=== PATIENT | male | born 1985 | race Hispanic/Latino ===

== ENCOUNTER 2018-11-10 14:50 | Inpatient (IN) | payer OTHER ==
--- NOTE | 2018-11-10 15:00 | Emergency Department Report ---
Blank Doc - Documentation Documentation: This is a 33-year-old male that presents with umbilical hernia pain. Exam: reducible umbilical hernia This initial assessment/diagnostic orders/clinical plan/treatment(s) is/are subject to change based on patient's health status, clinical progression and re- assessment by fellow clinical providers in the ED. Further treatment and workup at subsequent clinical providers discretion. Patient/guardians urged not to elope from the ED as their condition may be serious if not clinically assessed and managed. Initial orders include: 1- Patient sent to [facility] for further evaluation and treatment 2- labs
[2018-11-10 15:18] LABS: Hematocrit 44.3 % (35.5-45.6); Hemoglobin 14.7 gm/dl (11.8-15.2); Mean Corpuscular HGB Conc 33 % (32-34); Mean Corpuscular Volume 87 fl (84-94); Platelet Count 339 K/mm3 (140-440); Red Cell Distribution Width 14.5 % (13.2-15.2)
[2018-11-10 15:31] LABS: Alanine Aminotransferase 14 units/L (7-56); Albumin 3.5 g/dL (3.9-5); BUN/Creatinine Ratio 16; Bilirubin,Direct 0.4 mg/dL (0-0.2); Blood Urea Nitrogen 13 mg/dL (9-20); Calcium 9.4 mg/dL (8.4-10.2); Hemolysis Index 26
[2018-11-10 16:12] LABS: Basophils % (Manual) 0 % (0.0-1.8); Eosinophils % (Manual) 0 % (0.0-4.3); RBC Morphology Normal; Total Cells Counted 100
[2018-11-10] MEDS ORDERED: ZOFRAN IV ONE (17:50)
[2018-11-10] MEDS ORDERED: TORADOL IV ONE (17:50)
[2018-11-10] MEDS ORDERED: NACL 0.9% 1000 ML 1,000 ML IV ONE (17:50)
[2018-11-10 18:06] LABS: Bacteria,Urine 1+ /HPF (Negative); Bilirubin,Urine SM (Negative); Blood,Urine SM (Negative); Color,Urine Amber (Yellow); Mucus,Urine 3+ /HPF
[2018-11-10 18:12] LABS: Ictotest,Urine Positive (Negative)
--- NOTE | 2018-11-10 19:00 | Cat Scan Report ---
PROCEDURE: CT abdomen and pelvis with contrast. TECHNIQUE: Computerized axial tomography of the abdomen and pelvis was performed after the IV inject ion of iodinated nonionic contrast. CT DOSE LENGTH PRODUCT: 3456.8 mGycm HISTORY: abd pain, hx of umbilical hernia COMPARISONS: None. FINDINGS: The lung bases are clear. There are no pleural effusions. The heart size is normal. The liver, pancre as and spleen appear normal. The gallbladder is present. There is no biliary dilatation. The adrenal glands are not enlarged. Both kidneys appear normal in size and configuration. There is a small corti jaspreet cyst in the right kidney. The abdominal aorta has a normal caliber. There is no retroperitoneal a denopathy. There is an abnormal focal collection of gas with a small amount of fluid in the lower mes enteric fat. This measures approximately 4.7 cm x 4.5 cm in cross-section. It is surrounded by a loop of small bowel on the superior aspect. The inferior aspect is adjacent to the distal sigmoid colon. There is some infiltration of the surrounding fat. This represents a contained perforation with absce ss. There is no free pneumoperitoneum. The etiology is uncertain. There are a few diverticula in the sigmoid colon and a perforated diverticulum is probably the most likely etiology. Due to the surround ing bowel this abscess is not drainable percutaneously. Referral to a general surgeon is recommended. A normal appendix is visible. The bladder and seminal vesicles are unremarkable. The prostate appear s normal. There is a small amount of free fluid in the lower pelvis. There is a moderately large umbi lical hernia containing fat. The regional skeleton appears intact. IMPRESSION: Contained abscess within the mesenteric fat as described. A perforated sigmoid diverticu lum may be the most likely etiology. Small amount of free fluid in the lower pelvis which could be in fected. Referral to a general surgeon recommended. Moderately large umbilical hernia containing fat. This document is electronically signed by Stephon Ivory MD., November 10 2018 06:58:08 PM ET
--- NOTE | 2018-11-10 19:42 | Emergency Department Report ---
<AGUSTIN MATHEWS - Last Filed: 11/10/18 20:38> ED Abdominal Pain HPI - General Chief Complaint: Abdominal Pain Stated Complaint: BELLY PAIN/EXTREME Time Seen by Provider: 11/10/18 14:58 - Related Data Previous Rx's Medication Instructions Recorded Last Taken Type Acetaminophen/Codeine 1 tab PO Q6H PRN #12 tab 09/18/14 Unknown Rx [Acetaminophen-Codeine #3 TAB] Cyclobenzaprine [Flexeril 10mg] 10 mg PO Q8H PRN #15 tablet 09/18/14 Unknown Rx Ibuprofen [Motrin 800 MG tab] 800 mg PO Q8H PRN #30 tablet 09/18/14 Unknown Rx Allergies Allergy/AdvReac Type Severity Reaction Status Date / Time hydrocodone Allergy Unknown Verified 11/10/18 14:51 ED Past Medical Hx - Medications Home Medications: Home Medications Medication Instructions Recorded Confirmed Last Taken Type Acetaminophen/Codeine 1 tab PO Q6H PRN #12 tab 09/18/14 Unknown Rx [Acetaminophen-Codeine #3 TAB] Cyclobenzaprine [Flexeril 10mg] 10 mg PO Q8H PRN #15 tablet 09/18/14 Unknown Rx Ibuprofen [Motrin 800 MG tab] 800 mg PO Q8H PRN #30 tablet 09/18/14 Unknown Rx ED Medical Decision Making - Lab Data Result diagrams: 11/10/18 15:04 11/10/18 15:04 - Medical Decision Making Mr. Jose has complicated sigmoid diverticulitis, microperforation, intra- abdominal abscess. I evaluated Mr. Jose. He appears well, nontoxic. No evidence of peritonitis on exam. No indication of sepsis without SIRS. Normal abdominal exam. I spoke with general surgeon donor services team leader Dr. Hinojosa. I requested admission to the hospitalist service which my colleague will arrange. I recommended Zosyn as the antibiotic of choice. ED Disposition Clinical Impression: Abscess of sigmoid colon due to diverticulitis, Perforation of sigmoid colon due to diverticulitis Disposition: OP ADMIT IP TO THIS HOSP Is pt being admited?: Yes Does the pt Need Aspirin: No Condition: Stable Referrals: ILIA COLBY MD [Primary Care Provider] - 3-5 Days <NICKY PEREZ - Last Filed: 11/10/18 21:39> ED Abdominal Pain HPI - General Source: patient Mode of arrival: Ambulatory Limitations: No Limitations - History of Present Illness Initial Comments: Pt is a 33 yo male who presents to the ED with c/o periumbilical abdominal pain that began 5 days ago. The patient has associated nausea and constipation. He states he has had small amounts of liquid stool but no complete BM in 5 days. He denies any emesis, fever, or dysuria. He states he was seen at another hospital this morning and had an abdominal XR and he states that they saw "loops of gas" and he was given abx but did not have a CT performed. The patient has a hx of an umbilical hernia and states the pain is around there. He denies any PMHx or daily medications. He has had no abdominal surgeries. Severity scale (0 -10): 7 ED Review of Systems ROS: Stated complaint: BELLY PAIN/EXTREME Other details as noted in HPI Comment: All other systems reviewed and negative ED Past Medical Hx - Past Medical History Hx Hypertension: Yes Additional medical history: umbilical hernia, DIVERTICULITIS - Surgical History Additional Surgical History: fX LLL - Social History Smoking Status: Current Every Day Smoker Substance Use Type: None ED Physical Exam - General Limitations: No Limitations General appearance: alert, in no apparent distress - Head Head exam: Present: atraumatic, normocephalic - Eye Eye exam: Present: normal appearance - ENT ENT exam: Present: mucous membranes moist - Respiratory Respiratory exam: Present: normal lung sounds bilaterally. Absent: respiratory distress, wheezes, rales, rhonchi, stridor, chest wall tenderness, accessory muscle use, decreased breath sounds, prolonged expiratory - Cardiovascular Cardiovascular Exam: Present: regular rate, normal rhythm, normal heart sounds. Absent: systolic murmur, diastolic murmur, rubs, gallop - GI/Abdominal GI/Abdominal exam: Present: soft, tenderness (periumbilcal TTP), hypoactive bowel sounds, hernia ( umbilical hernia easily reducible ). Absent: distended, guarding, rebound, rigid - Back Exam Back exam: Absent: CVA tenderness (R), CVA tenderness (L) - Neurological Exam Neurological exam: Present: alert, oriented X3 - Psychiatric Psychiatric exam: Present: normal affect, normal mood - Skin Skin exam: Present: warm, dry, intact ED Course Vital Signs 11/10/18 14:58 Temperature 98.3 F Pulse Rate 108 H Respiratory 20 Rate Blood Pressure 134/76 O2 Sat by Pulse 96 Oximetry - Consultations Consultation #1: 11/10/18 19:42 asked service secretary to call general surgery Consultation #2: 11/10/18 20:30 Dr. Mathews spoke with Dr. Hinojosa, general surgery who will evaluate pt and see pt in the hospital Consultation #3: 11/10/18 21:22 Dr. Mathews spoke with Dr. Molina, hospitalist who will accept and resume care of the patient and admit patient to the hospital ED Medical Decision Making - Lab Data Result diagrams: 11/10/18 15:04 11/10/18 15:04 Lab Results 11/10/18 11/10/18 11/10/18 Range/Units 15:04 15:04 17:46 WBC 22.5 H (4.5-11.0) K/mm3 RBC 5.10 H (3.65-5.03) M/mm3 Hgb 14.7 (11.8-15.2) gm/dl Hct 44.3 (35.5-45.6) % MCV 87 (84-94) fl MCH 29 (28-32) pg MCHC 33 (32-34) % RDW 14.5 (13.2-15.2) % Plt Count 339 (140-440) K/mm3 Add Manual Diff Complete Total Counted 100 Seg Neuts % (Manual) 83.0 H (40.0-70.0) % Band Neutrophils % 0 % Lymphocytes % (Manual) 9.0 L (13.4-35.0) % Reactive Lymphs % (Man) 0 % Monocytes % (Manual) 8.0 H (0.0-7.3) % Eosinophils % (Manual) 0 (0.0-4.3) % Basophils % (Manual) 0 (0.0-1.8) % Metamyelocytes % 0 % Myelocytes % 0 % Promyelocytes % 0 % Blast Cells % 0 % Nucleated RBC % Not Reportable Seg Neutrophils # Man 18.7 H (1.8-7.7) K/mm3 Band Neutrophils # 0.0 K/mm3 Lymphocytes # (Manual) 2.0 (1.2-5.4) K/mm3 Abs React Lymphs (Man) 0.0 K/mm3 Monocytes # (Manual) 1.8 H (0.0-0.8) K/mm3 Eosinophils # (Manual) 0.0 (0.0-0.4) K/mm3 Basophils # (Manual) 0.0 (0.0-0.1) K/mm3 Metamyelocytes # 0.0 K/mm3 Myelocytes # 0.0 K/mm3 Promyelocytes # 0.0 K/mm3 Blast Cells # 0.0 K/mm3 WBC Morphology Not Reportable Hypersegmented Neuts Not Reportable Hyposegmented Neuts Not Reportable Hypogranular Neuts Not Reportable Smudge Cells Not Reportable Toxic Granulation Not Reportable Toxic Vacuolation Not Reportable Dohle Bodies Not Reportable Pelger-Huet Anomaly Not Reportable Manuel Rods Not Reportable Platelet Estimate Not Reportable Clumped Platelets Not Reportable Plt Clumps, EDTA Not Reportable Large Platelets Not Reportable Giant Platelets Not Reportable Platelet Satelliting Not Reportable Plt Morphology Comment Not Reportable RBC Morphology Normal Dimorphic RBCs Not Reportable Polychromasia Not Reportable Hypochromasia Not Reportable Poikilocytosis Not Reportable Anisocytosis Not Reportable Microcytosis Not Reportable Macrocytosis Not Reportable Spherocytes Not Reportable Pappenheimer Bodies Not Reportable Sickle Cells Not Reportable Target Cells Not Reportable Tear Drop Cells Not Reportable Ovalocytes Not Reportable Helmet Cells Not Reportable [place] Bodies Not Reportable [place] Rings Not Reportable [place] Cells Not Reportable Bite Cells Not Reportable Crenated Cell Not Reportable Elliptocytes Not Reportable Acanthocytes (Spur) Not Reportable Rouleaux Not Reportable Hemoglobin C Crystals Not Reportable Schistocytes Not Reportable Malaria parasites Not Reportable Hood Bodies Not Reportable Hem Pathologist Commnt No Sodium 140 (137-145) mmol/L Potassium 4.2 (3.6-5.0) mmol/L Chloride 104.9 (98-107) mmol/L Carbon Dioxide 18 L (22-30) mmol/L Anion Gap 21 mmol/L BUN 13 (9-20) mg/dL Creatinine 0.8 (0.8-1.5) mg/dL Estimated GFR > 60 ml/min BUN/Creatinine Ratio 16 % Glucose 93 (75-100) mg/dL Calcium 9.4 (8.4-10.2) mg/dL Total Bilirubin 0.90 (0.1-1.2) mg/dL Direct Bilirubin 0.4 H (0-0.2) mg/dL Indirect Bilirubin 0.5 mg/dL AST 16 (5-40) units/L ALT 14 (7-56) units/L Alkaline Phosphatase 78 (35-129) units/L Total Protein 7.5 (6.3-8.2) g/dL Albumin 3.5 L (3.9-5) g/dL Albumin/Globulin Ratio 0.9 % Lipase 47 (13-60) units/L Urine Color [place] (Yellow) Urine Turbidity Clear (Clear) Urine pH 6.0 (5.0-7.0) Ur Specific [place] 1.043 H (1.003-1.030) Urine Protein 100 mg/dl (Negative) mg/dL Urine Glucose (UA) Neg (Negative) mg/dL Urine Ketones 20 (Negative) mg/dL Urine Blood Sm (Negative) Urine Nitrite Neg (Negative) Urine Bilirubin Sm (Negative) Urine Ictotest Positive (Negative) Urine Urobilinogen 4.0 (<2.0) mg/dL Ur Leukocyte Esterase Neg (Negative) Urine WBC (Auto) 8.0 H (0.0-6.0) /HPF Urine RBC (Auto) 12.0 (0.0-6.0) /HPF U Epithel Cells (Auto) 3.0 (0-13.0) /HPF Urine Bacteria (Auto) 1+ (Negative) /HPF Urine Mucus 3+ /HPF Urine Yeast (Budding) 2+ /HPF - Radiology Data Radiology results: report reviewed CT abd/pelvis with contained abscess within the mesenteric fat, perforated diverticulum may be most likely, small amount of free fluid in lower pelvis, moderately large umbilical hernia containing fat - Differential Diagnosis hernia, diverticulitis, diverticulosis, SBO, constipation Critical care attestation.: If time is entered above; I have spent that time in minutes in the direct care of this critically ill patient, excluding procedure time.
[2018-11-10] MEDS ORDERED: ZOSYN/NS 4.5GM/100ML 4.5 GM/100 ML VIAL IV ONE (20:37)
[2018-11-10] MEDS ORDERED: HABITROL TD ONE (22:00)
[2018-11-10] MEDS ORDERED: TYLENOL PO PRN (22:43)
--- NOTE | 2018-11-10 22:47 | History and Physical Report ---
History of Present Illness Date of examination: 11/10/18 Date of admission: 11/10/18 21:50 History of present illness: 33-year-old man history of diverticulosis comes emergency room with complaints of abdominal pain that started 5 days ago. Pain is in the lower quadrant which he describes as a sharp pain, intermittent in 4 hours, intensity 8/10, no radiation, better with pain medications given. He did place a subjective fever chills, no nausea vomiting. The patient was seen at [facility] today and was admitted, he left AMA because he stated he "flipped out" Review of systems Constitutional: no weight loss Ears, eyes, nose, mouth and throat: no nasal congestion, no nasal discharge, no sinus pressure, no vision change, no red eye. Neck: No neck pain or rigidity. Cardiovascular: no palpitations, chest pain Respiratory: no cough, shortness of breath Gastrointestinal: no hematochezia, +abdominal pain Genitourinary : no frequency , no hematuria Musculoskeletal: no joint swelling or muscle ache Integumentary: no rash, no pruritis Neurological: no parathesias, no focal weakness Endocrine: no cold or heat intolerance, no polyuria or polydipsia Hematologic/Lymphatic: no easy bruising, no easy bleeding, no gland swelling Allergic/Immunologic: no urticaria, no angioedema. SPAST MEDICAL HISTORY:diverticulosis PAST SURGICAL HISTORY: Left leg SOCIAL HISTORY: Denies alcohol, drugs, smoke 1-1/2 packs a day FAMILY HISTORY: Hypertension Medications and Allergies Allergies Allergy/AdvReac Type Severity Reaction Status Date / Time hydrocodone Allergy Unknown Verified 11/10/18 14:51 Home Medications Medication Instructions Recorded Confirmed Last Taken Type Acetaminophen/Codeine 1 tab PO Q6H PRN #12 tab 09/18/14 Unknown Rx [Acetaminophen-Codeine #3 TAB] Cyclobenzaprine [Flexeril 10mg] 10 mg PO Q8H PRN #15 tablet 09/18/14 Unknown Rx Ibuprofen [Motrin 800 MG tab] 800 mg PO Q8H PRN #30 tablet 09/18/14 Unknown Rx Active Meds: Active Medications Acetaminophen (Tylenol) 650 mg PO Q4H PRN PRN Reason: Pain MILD(1-3)/Fever >100.5/CORTES Sodium Chloride (Nacl 0.9% 1000 Ml) 1,000 mls @ 125 mls/hr IV DIRECT FLACA Piperacillin Sod/Tazobactam Sod (Zosyn/Ns 4.5gm/100ml) 4.5 gm in 100 mls @ 200 mls/hr IV Q6HR FLACA; Protocol Morphine Sulfate (Morphine) 2 mg IV Q4H PRN PRN Reason: Pain, Moderate (4-6) Ondansetron HCl (Zofran) 4 mg IV Q4H PRN PRN Reason: Nausea And Vomiting Sodium Chloride (Sodium Chloride Flush Syringe 10 Ml) 10 ml IV BID FLACA Sodium Chloride (Sodium Chloride Flush Syringe 10 Ml) 10 ml IV PRN PRN PRN Reason: LINE FLUSH Exam - Physical Exam Narrative exam: General Apperance: The patient lying in bed, breathing comfortable HEENT: Normocephalic, atraumatic. Pupils equally round and reactive to light, EOMI, no sclericterus or JVD or thyromegaly or nodule. , no carotid bruit, mucous membranes moist, no exudate or erythema Heart: S1-S2, regular is rhythm Lungs: Clear to auscultation bilaterally, breathing comfortable Abdomen: Positive bowel sounds, soft, tenderin lower quadrant, nondistended, no organomegaly Extremities: No edema cyanosis clubbing Skin: no rash, nodule, warm and dry Neuro: cranial nerves 2-12 intact, speech is fluent, motor/sensory intact - Constitutional Vitals: Temp Pulse Resp BP Pulse Ox 98.3 F 108 H 20 134/76 96 11/10/18 14:58 11/10/18 14:58 11/10/18 14:58 11/10/18 14:58 11/10/18 14:58 Results - Labs CBC & Chem 7: 11/10/18 15:04 11/10/18 15:04 Labs: Abnormal lab results 11/10/18 11/10/18 11/10/18 Range/Units 15:04 15:04 17:46 WBC 22.5 H (4.5-11.0) K/mm3 RBC 5.10 H (3.65-5.03) M/mm3 Seg Neuts % (Manual) 83.0 H (40.0-70.0) % Lymphocytes % (Manual) 9.0 L (13.4-35.0) % Monocytes % (Manual) 8.0 H (0.0-7.3) % Seg Neutrophils # Man 18.7 H (1.8-7.7) K/mm3 Monocytes # (Manual) 1.8 H (0.0-0.8) K/mm3 Carbon Dioxide 18 L (22-30) mmol/L Direct Bilirubin 0.4 H (0-0.2) mg/dL Albumin 3.5 L (3.9-5) g/dL Ur Specific [place] 1.043 H (1.003-1.030) Urine WBC (Auto) 8.0 H (0.0-6.0) /HPF - Imaging and Cardiology CT scan - abdomen: report reviewed CT scan - pelvis: report reviewed Assessment and Plan Assessment Diverticular abscess with microperforation Plan Admit to medicine Start fluids, bowel rest, IV Zosyn Serial abdominal exam, consult surgery IV morphine, DVT prophylaxis
[2018-11-11] MEDS: ZOSYN/NS 4.5GM/100ML 4.5 GM/100 ML VIAL IV SCH ×3 (01:32→14:20)
[2018-11-11] MEDS: NACL 0.9% 1000 ML 1,000 ML IV SCH ×3 (01:33→20:46)
[2018-11-11 07:48] LABS: Basophils # (Auto) 0.1 K/mm3 (0.0-0.1); Basophils % (Auto) 0.6 % (0.0-1.8); Eosinophils # (Auto) 0.5 K/mm3 (0.0-0.4); Eosinophils % (Auto) 3.8 % (0.0-4.3); Hematocrit 39.9 % (35.5-45.6); Hemoglobin 13.2 gm/dl (11.8-15.2); Lymphocytes # (Auto) 1.6 K/mm3 (1.2-5.4); Lymphocytes % (Auto) 11.5 % (13.4-35.0); Mean Corpuscular HGB Conc 33 % (32-34); Mean Corpuscular Volume 87 fl (84-94); Monocytes % (Auto) 6.8 % (0.0-7.3); Platelet Count 280 K/mm3 (140-440); Red Blood Count 4.61 M/mm3 (3.65-5.03); Red Cell Distribution Width 14.9 % (13.2-15.2)
[2018-11-11 08:12] LABS: BUN/Creatinine Ratio 19; Blood Urea Nitrogen 15 mg/dL (9-20); Calcium 8.9 mg/dL (8.4-10.2); Hemolysis Index 5
[2018-11-11] MEDS: ZOFRAN IV PRN ×3 (08:40→20:46)
[2018-11-11] MEDS: MORPHINE IV PRN ×3 (08:40→20:46)
[2018-11-11] MEDS: HABITROL TD SCH ×2 (08:53→10:00)
[2018-11-11] MEDS: SODIUM CHLORIDE FLUSH SYRINGE 10 ML IV SCH (10:00)
--- NOTE | 2018-11-11 10:44 | Progress Note ---
Assessment and Plan Full consult dictated 33 y/o male contained microperforation possible sigmoid diverticulitis. Pt was being Rx for this at [place] and signed out AMA. states "feeling much better now" Abd obese, soft. non tender at present. CT abd findings as mentioned above. rec: NPO IV antibiotics close clinical obsv continue present care will follow History of present illness: 33-year-old man history of diverticulosis comes emergency room with complaints of abdominal pain that started 5 days ago. Pain is in the lower quadrant which he describes as a sharp pain, intermittent in 4 hours, intensity 8/10, no radiation, better with pain medications given. He did place a subjective fever chills, no nausea vomiting. The patient was seen at [facility] today and was admitted, he left AMA because he stated he "flipped out" Review of systems Constitutional: no weight loss Ears, eyes, nose, mouth and throat: no nasal congestion, no nasal discharge, no sinus pressure, no vision change, no red eye. Neck: No neck pain or rigidity. Cardiovascular: no palpitations, chest pain Respiratory: no cough, shortness of breath Gastrointestinal: no hematochezia, +abdominal pain Genitourinary : no frequency , no hematuria Musculoskeletal: no joint swelling or muscle ache Integumentary: no rash, no pruritis Neurological: no parathesias, no focal weakness Endocrine: no cold or heat intolerance, no polyuria or polydipsia Hematologic/Lymphatic: no easy bruising, no easy bleeding, no gland swelling Allergic/Immunologic: no urticaria, no angioedema. SPAST MEDICAL HISTORY:diverticulosis PAST SURGICAL HISTORY: Left leg SOCIAL HISTORY: Denies alcohol, drugs, smoke 1-1/2 packs a day FAMILY HISTORY: Hypertension Selected Entries 11/11/18 11/11/18 03:31 07:20 Temperature 97.5 F L Pulse Rate 69 Respiratory 20 Rate Blood Pressure 101/39 [Left] Laboratory Tests 11/10/18 11/10/18 11/11/18 15:04 15:04 07:40 WBC 22.5 H 14.2 H Hgb 14.7 13.2 Hct 44.3 39.9 Plt Count 280 Sodium Potassium Chloride Carbon Dioxide BUN Creatinine Glucose Total Bilirubin 0.90 Direct Bilirubin 0.4 H Indirect Bilirubin 0.5 AST 16 ALT 14 Alkaline Phosphatase 78 Lipase 47 11/11/18 07:40 WBC Hgb Hct Plt Count Sodium 140 Potassium 3.8 Chloride 107.5 H Carbon Dioxide 21 L BUN 15 Creatinine 0.8 Glucose 74 L Total Bilirubin Direct Bilirubin Indirect Bilirubin AST ALT Alkaline Phosphatase Lipase Objective Vital Signs - 12hr 11/10/18 11/11/18 11/11/18 23:40 00:09 00:40 Temperature 97.5 F L 98.1 F Pulse Rate 63 69 Respiratory 16 16 18 Rate Blood Pressure 121/49 Blood Pressure 106/59 [Left] O2 Sat by Pulse 98 98 98 Oximetry 11/11/18 11/11/18 03:31 07:20 Temperature 97.5 F L 97.6 F Pulse Rate 69 69 Respiratory 17 20 Rate Blood Pressure 117/70 Blood Pressure 101/39 [Left] O2 Sat by Pulse 98 97 Oximetry - Labs 11/11/18 07:40 11/11/18 07:40 Diabetes panel 11/10/18 11/11/18 Range/Units 15:04 07:40 Sodium 140 140 (137-145) mmol/L Potassium 4.2 3.8 (3.6-5.0) mmol/L Chloride 104.9 107.5 H (98-107) mmol/L Carbon Dioxide 18 L 21 L (22-30) mmol/L BUN 13 15 (9-20) mg/dL Creatinine 0.8 0.8 (0.8-1.5) mg/dL Glucose 93 74 L (75-100) mg/dL Calcium 9.4 8.9 (8.4-10.2) mg/dL AST 16 (5-40) units/L ALT 14 (7-56) units/L Alkaline Phosphatase 78 (35-129) units/L Total Protein 7.5 (6.3-8.2) g/dL Albumin 3.5 L (3.9-5) g/dL Calcium panel 11/10/18 11/11/18 Range/Units 15:04 07:40 Calcium 9.4 8.9 (8.4-10.2) mg/dL Albumin 3.5 L (3.9-5) g/dL Pituitary panel 11/10/18 11/11/18 Range/Units 15:04 07:40 Sodium 140 140 (137-145) mmol/L Potassium 4.2 3.8 (3.6-5.0) mmol/L Chloride 104.9 107.5 H (98-107) mmol/L Carbon Dioxide 18 L 21 L (22-30) mmol/L BUN 13 15 (9-20) mg/dL Creatinine 0.8 0.8 (0.8-1.5) mg/dL Glucose 93 74 L (75-100) mg/dL Calcium 9.4 8.9 (8.4-10.2) mg/dL Adrenal panel 11/10/18 11/11/18 Range/Units 15:04 07:40 Sodium 140 140 (137-145) mmol/L Potassium 4.2 3.8 (3.6-5.0) mmol/L Chloride 104.9 107.5 H (98-107) mmol/L Carbon Dioxide 18 L 21 L (22-30) mmol/L BUN 13 15 (9-20) mg/dL Creatinine 0.8 0.8 (0.8-1.5) mg/dL Glucose 93 74 L (75-100) mg/dL Calcium 9.4 8.9 (8.4-10.2) mg/dL Total Bilirubin 0.90 (0.1-1.2) mg/dL AST 16 (5-40) units/L ALT 14 (7-56) units/L Alkaline Phosphatase 78 (35-129) units/L Total Protein 7.5 (6.3-8.2) g/dL Albumin 3.5 L (3.9-5) g/dL
[2018-11-11] MEDS: LOVENOX SUB-Q SCH (14:24)
--- NOTE | 2018-11-11 14:31 | Consultation ---
REASON FOR CONSULTATION: Rule out contained microperforation, sigmoid diverticulitis. HISTORY OF PRESENT ILLNESS: The patient is a 33-year-old gentleman, who states recently released from [facility]. Also, states he was currently being treated at [facility], [place] for diverticulitis with IV antibiotics, but signed out AMA, then came to the ER here and was admitted last night secondary to abdominal pain. The patient states he is " PAST MEDICAL HISTORY: Pertinent for diverticulitis, which he also suffered approximately 4 months ago, again was treated at [facility], [place] at that time. The acute episode resolved and the patient did well subsequently. Past medical history also pertinent for umbilical hernia. ALLERGIES: No known allergies. MEDICATIONS: No medications. FAMILY HISTORY: Heart disease and hypertension. SOCIAL HISTORY: States drinks heavily. Also, 2-pack-a day smoker for approximately 18 years. Also, admits to smoking marijuana and did some meth a couple of years back, but states that he is no longer doing this. CT scan of the abdomen performed here on admission does indeed reveal what appears to be a fluid collection at the site of probable ruptured and contained diverticulitis. There are some other diverticula noted in the sigmoid colon. The small bowel around the fluid collection is somewhat inflamed, most likely secondary from the original process of microperforation of the sigmoid diverticula. PHYSICAL EXAMINATION: GENERAL: At this time reveals the patient is to be awake, alert, cooperative, and comfortable, in no acute distress. VITAL SIGNS: Showed to be afebrile with a temperature 97.6, blood pressure is 101/39, pulse of 69, respirations 20. ABDOMEN: Examination of the abdomen reveals it to be obese and soft. Reducible umbilical hernia is noted which is nontender. No lower abdominal tenderness or left lower quadrant tenderness could be elicited at this time. Bowel sounds are somewhat hypoactive. No rebound or guarding is noted. LABORATORY DATA: Present lab work includes a CBC, which shows a white count of 14.2 down from 22.5 on admission. H and H is 13 and 39. Electrolytes are essentially within normal limits. LFTs are also within normal limits. Lipase is 47. A CT scan of the abdomen was performed, whose findings I have reviewed above. IMPRESSION: At this time is that of a 33-year-old gentleman, probable microperforation of diverticulitis, which is currently contained. No evidence of any free fluid noted. No clinical signs of peritonitis noted. RECOMMENDATIONS: At this time is to keep the patient n.p.o. and IV fluid hydration. IV antibiotic therapy. We will monitor clinically. Also, we will obtain ID evaluation. Continue close clinical observation. JOB# [id number] LISA/TEE
--- NOTE | 2018-11-11 15:23 | Consultation ---
History of Present Illness - Reason for Consult Consult date: 11/11/18 ruptured diverticulitis Requesting physician: TRA LEMON - History of Present Illness 33 y/o male with history of obesity and diverticulosis; admitted on 11/10/2018 due to abdominal pain associated with chills and night sweats for 5 days. Patient reports pain was 10 of 10 in the periumbilical area and LLQ area. Reports constipation for several days. Denies nausea or vomiting. He had similar episode 2 years ago. He went initially to [facility] and left AMA. Denies dysuria, hematuria, frequency. In the ED, temp 98.3, HR 108, R 20, O2 sat 96%, BP 134/76. WBC 22.5, Hg 14, Plat 339. Creat 0.8. UA neg. Blood culture 11/10/[address] abdomen showed an 4.7x4.5 cm gas/fluid collection in lower mesenteric fat. Review of Systems: General: no fever, ++ chills, +nightsweats, no unintentional weight change, or change in appetite Cutaneous: no rash, pruritus Head: no headaches or injury Eyes: no changes in vision, eye pain, double vision Ears: no ear pain, ear discharge, ringing or hearing loss Nose: no nose bleeding, stuffiness Mouth & throat: no bleeding gums, no horseness, no dental problems, or swollen glands Neck: no pain, node enlargement/lumps, tyroid enlargement or tenderness Respiratory: no cough, wheezing, sputum, hemoptysis, pleuritic chest pain Cardiovascular: no chest pain, leg edema, cyanosis, BENOIT, orthopnea Musculoskeletal: no decreased joint motion, bone or joint pain, joint swelling, muscle aches Gastrointestinal: no nausea, vomiting, hematemesis, no diarrhea, +constipation, no melena, bright red blood in stools, fecal incontinence, jaundice Genitourinary/Reproductive: no frequent urination, dysuria, hematuria, incont inence Neurogical: no seizures, no headaches, no weakness, no paresthesias, no loss of speech or vision; no memory loss, no vertigo, no tremors, no numbness Psychiatric: stable mood; no excessive anxiety, sadness or moodiness Medications and Allergies Allergies Allergy/AdvReac Type Severity Reaction Status Date / Time hydrocodone Allergy Unknown Verified 11/10/18 14:51 Home Medications Medication Instructions Recorded Confirmed Last Taken Type Acetaminophen/Codeine 1 tab PO Q6H PRN #12 tab 09/18/14 Unknown Rx [Acetaminophen-Codeine #3 TAB] Cyclobenzaprine [Flexeril 10mg] 10 mg PO Q8H PRN #15 tablet 09/18/14 Unknown Rx Ibuprofen [Motrin 800 MG tab] 800 mg PO Q8H PRN #30 tablet 09/18/14 Unknown Rx Active Meds: Active Medications Acetaminophen (Tylenol) 650 mg PO Q4H PRN PRN Reason: Pain MILD(1-3)/Fever >100.5/CORTES Enoxaparin Sodium (Lovenox) 40 mg SUB-Q QDAY FLACA Last Admin: 11/11/18 14:24 Dose: 40 mg Documented by: Sodium Chloride (Nacl 0.9% 1000 Ml) 1,000 mls @ 125 mls/hr IV DIRECT FLACA Last Admin: 11/11/18 08:46 Dose: 125 mls/hr Documented by: Piperacillin Sod/Tazobactam Sod (Zosyn/Ns 4.5gm/100ml) 4.5 gm in 100 mls @ 200 mls/hr IV Q6H FLACA; Protocol Last Admin: 11/11/18 14:20 Dose: 200 mls/hr Documented by: Morphine Sulfate (Morphine) 2 mg IV Q4H PRN PRN Reason: Pain, Moderate (4-6) Last Admin: 11/11/18 08:40 Dose: 2 mg Documented by: Nicotine (Habitrol) 21 mg TD QDAY [facility] Last Admin: 11/11/18 10:00 Dose: Not Given Documented by: Ondansetron HCl (Zofran) 4 mg IV Q4H PRN PRN Reason: Nausea And Vomiting Last Admin: 11/11/18 08:40 Dose: 4 mg Documented by: Sodium Chloride (Sodium Chloride Flush Syringe 10 Ml) 10 ml IV BID FLACA Last Admin: 11/11/18 10:00 Dose: Not Given Documented by: Sodium Chloride (Sodium Chloride Flush Syringe 10 Ml) 10 ml IV PRN PRN PRN Reason: LINE FLUSH Physical Examination - Physical Exam Narrative exam: General appearance: Alert in NAD, conversant Eyes: anicteric sclerae, moist conjunctivae; no lid-lag; PERRLA HENT: Atraumatic; oropharynx clear with moist mucous membranes and no mucosal ulcerations/no oral thrush; normal hard and soft palate. Normal external ears. Neck: Trachea midline; supple, no thyromegaly or lymphadenopathy Lungs: CTA, with normal respiratory effort and no intercostal retractions CV: RRR, no murmurs Abdomen: Soft, mild diffuse tenderness umbilical hernia Extremities: No peripheral edema or extremity lymphadenopathy Skin: Normal temperature, turgor and texture; no rash, ulcers or subcutaneous nodules Psych: Appropriate affect, alert and oriented to person, place and time. Neuro: alert and oriented x 3. Moving all extermities - Constitutional Vitals: Vital Signs Temp Pulse Resp BP Pulse Ox 98.1 F 79 20 113/55 97 11/11/18 11:50 11/11/18 11:50 11/11/18 11:50 11/11/18 11:50 11/11/18 13:25 Temperature -Last 24 Hours Temperature 98.1 F Temperature 97.6 F Temperature 97.5 F Temperature 98.1 F Temperature 97.5 F Results - Labs CBC & Chem 7: 11/11/18 07:40 11/11/18 07:40 Labs: Abnormal lab results 11/10/18 11/10/18 11/10/18 Range/Units 15:04 15:04 17:46 WBC (4.5-11.0) K/mm3 Lymph % (Auto) (13.4-35.0) % [place] # (0.0-0.8) K/mm3 Eos # (0.0-0.4) K/mm3 Seg Neutrophils % (40.0-70.0) % Seg Neuts % (Manual) 83.0 H (40.0-70.0) % Lymphocytes % (Manual) 9.0 L (13.4-35.0) % Monocytes % (Manual) 8.0 H (0.0-7.3) % Seg Neutrophils # (1.8-7.7) K/mm3 Seg Neutrophils # Man 18.7 H (1.8-7.7) K/mm3 Monocytes # (Manual) 1.8 H (0.0-0.8) K/mm3 Chloride (98-107) mmol/L Carbon Dioxide 18 L (22-30) mmol/L Glucose (75-100) mg/dL Direct Bilirubin 0.4 H (0-0.2) mg/dL Albumin 3.5 L (3.9-5) g/dL Ur Specific [place] 1.043 H (1.003-1.030) Urine WBC (Auto) 8.0 H (0.0-6.0) /HPF 11/11/18 11/11/18 Range/Units 07:40 07:40 WBC 14.2 H (4.5-11.0) K/mm3 Lymph % (Auto) 11.5 L (13.4-35.0) % [place] # 1.0 H (0.0-0.8) K/mm3 Eos # 0.5 H (0.0-0.4) K/mm3 Seg Neutrophils % 77.3 H (40.0-70.0) % Seg Neuts % (Manual) (40.0-70.0) % Lymphocytes % (Manual) (13.4-35.0) % Monocytes % (Manual) (0.0-7.3) % Seg Neutrophils # 11.0 H (1.8-7.7) K/mm3 Seg Neutrophils # Man (1.8-7.7) K/mm3 Monocytes # (Manual) (0.0-0.8) K/mm3 Chloride 107.5 H (98-107) mmol/L Carbon Dioxide 21 L (22-30) mmol/L Glucose 74 L (75-100) mg/dL Direct Bilirubin (0-0.2) mg/dL Albumin (3.9-5) g/dL Ur Specific [place] (1.003-1.030) Urine WBC (Auto) (0.0-6.0) /HPF Assessment and Plan Cultures: Blood culture 11/10/2018 no growth today. Assessment: 33 y/o male with history of obesity and diverticulosis; admitted on 11/10/2018 due to abdominal pain associated with chills and night sweats for 5 days: 1) Sepsis: Present on admission, manifested by tachycardia, leukocytosis. Etiology most likely ruptured diverticulitis with an abscess. 2) Ruptured diverticulitis with an abscess: CT abdomen showed an 4.7x4.5 cm gas/fluid collection in lower mesenteric fat. Recommendations: - follow-up blood cultures - obtain C-reactive protein (CRP) - stop zosyn (no need for Pseudomonas coverage) - start ceftriaxone and flagyl - add fluconazole IV - if not clinically better in 1-2 days will consider rechecking CT/IR evaluation for drainage Will follow. Tracy Coleman MD Infectious Diseases [employer] [facility] ([facility] M [phone] O [phone]
--- NOTE | 2018-11-11 17:27 | Progress Note ---
Assessment and Plan Assessment and plan: Patient is a 33-year-old man history of diverticulosis comes emergency room with complaints of abdominal pain that started 5 days ago. Pain is in the lower quadrant which he describes as a sharp pain, intermittent in 4 hours, intensity 8/10, no radiation, better with pain medications given. He did place a subjective fever chills, no nausea vomiting. The patient was seen at [facility] today and was admitted, he left AMA because he stated he "flipped out" CTAP: Imaging. Contained Abscess, within the mesenteric fat, Perforated, Sigmoid Diverticlum, moderately large umbilical hernia Peritoneal irritation Diverticular Abscess with Microperforation Sepsis Leukocytosis Plan: Continue supportive care Keep NPO Continue abx and antifungal Per ID Surgery and ID consulted DVT/GI prophy Plan discussed with patient and the family. History Interval history: Patient seen and examined, appears a little agitated, and tremulous but otherwise some improvement in abdominal pain. Hospitalist Physical - Physical exam Narrative exam: VITAL SIGNS: Reviewed. GENERAL: The patient appeared well nourished and normally developed, jittery intermittently Vital signs as documented. HEAD: No signs of head trauma. EYES: Pupils are equal. Extraocular motions intact. EARS: Hearing grossly intact. MOUTH: Oropharynx is normal. NECK: No adenopathy, no JVD. CHEST: Chest with clear breath sounds bilaterally. No wheezes, rales, or rhonchi. CARDIAC: Regular rate and rhythm. S1 and S2, without murmurs, gallops, or rubs. VASCULAR: No Edema. Peripheral pulses normal and equal in all extremities. ABDOMEN: Soft, tender diffius. No rebound or guarding, and no masses palpated. Bowel Sounds normal. MUSCULOSKELETAL: Good range of motion of all major joints. Extremities without clubbing, cyanosis or edema. NEUROLOGIC EXAM: Alert and oriented x 3 No focal sensory or strength deficits. Speech normal. Follows commands. PSYCHIATRIC: Mood normal. SKIN: No rash or lesions. - Constitutional Vitals: Temp Pulse Resp BP Pulse Ox 98.8 F 87 18 123/63 97 11/11/18 16:35 11/11/18 16:35 11/11/18 16:35 11/11/18 16:35 11/11/18 16:35 Results - Labs CBC & Chem 7: 11/11/18 07:40 11/11/18 07:40 Labs: Laboratory Last Values WBC 14.2 K/mm3 (4.5-11.0) H 11/11/18 07:40 RBC 4.61 M/mm3 (3.65-5.03) 11/11/18 07:40 Hgb 13.2 gm/dl (11.8-15.2) 11/11/18 07:40 Hct 39.9 % (35.5-45.6) 11/11/18 07:40 MCV 87 fl (84-94) 11/11/18 07:40 MCH 29 pg (28-32) 11/11/18 07:40 MCHC 33 % (32-34) 11/11/18 07:40 RDW 14.9 % (13.2-15.2) 11/11/18 07:40 Plt Count 280 K/mm3 (140-440) 11/11/18 07:40 Lymph % (Auto) 11.5 % (13.4-35.0) L 11/11/18 07:40 [place] % (Auto) 6.8 % (0.0-7.3) 11/11/18 07:40 Eos % (Auto) 3.8 % (0.0-4.3) 11/11/18 07:40 Baso % (Auto) 0.6 % (0.0-1.8) 11/11/18 07:40 Lymph # 1.6 K/mm3 (1.2-5.4) 11/11/18 07:40 [place] # 1.0 K/mm3 (0.0-0.8) H 11/11/18 07:40 Eos # 0.5 K/mm3 (0.0-0.4) H 11/11/18 07:40 Baso # 0.1 K/mm3 (0.0-0.1) 11/11/18 07:40 Add Manual Diff Complete 11/10/18 15:04 Total Counted 100 11/10/18 15:04 Seg Neutrophils % 77.3 % (40.0-70.0) H 11/11/18 07:40 Seg Neuts % (Manual) 83.0 % (40.0-70.0) H 11/10/18 15:04 Band Neutrophils % 0 % 11/10/18 15:04 Lymphocytes % (Manual) 9.0 % (13.4-35.0) L 11/10/18 15:04 Reactive Lymphs % (Man) 0 % 11/10/18 15:04 Monocytes % (Manual) 8.0 % (0.0-7.3) H 11/10/18 15:04 Eosinophils % (Manual) 0 % (0.0-4.3) 11/10/18 15:04 Basophils % (Manual) 0 % (0.0-1.8) 11/10/18 15:04 Metamyelocytes % 0 % 11/10/18 15:04 Myelocytes % 0 % 11/10/18 15:04 Promyelocytes % 0 % 11/10/18 15:04 Blast Cells % 0 % 11/10/18 15:04 Nucleated RBC % Not Reportable 11/10/18 15:04 Seg Neutrophils # 11.0 K/mm3 (1.8-7.7) H 11/11/18 07:40 Seg Neutrophils # Man 18.7 K/mm3 (1.8-7.7) H 11/10/18 15:04 Band Neutrophils # 0.0 K/mm3 11/10/18 15:04 Lymphocytes # (Manual) 2.0 K/mm3 (1.2-5.4) 11/10/18 15:04 Abs React Lymphs (Man) 0.0 K/mm3 11/10/18 15:04 Monocytes # (Manual) 1.8 K/mm3 (0.0-0.8) H 11/10/18 15:04 Eosinophils # (Manual) 0.0 K/mm3 (0.0-0.4) 11/10/18 15:04 Basophils # (Manual) 0.0 K/mm3 (0.0-0.1) 11/10/18 15:04 Metamyelocytes # 0.0 K/mm3 11/10/18 15:04 Myelocytes # 0.0 K/mm3 11/10/18 15:04 Promyelocytes # 0.0 K/mm3 11/10/18 15:04 Blast Cells # 0.0 K/mm3 11/10/18 15:04 WBC Morphology Not Reportable 11/10/18 15:04 Hypersegmented Neuts Not Reportable 11/10/18 15:04 Hyposegmented Neuts Not Reportable 11/10/18 15:04 Hypogranular Neuts Not Reportable 11/10/18 15:04 Smudge Cells Not Reportable 11/10/18 15:04 Toxic Granulation Not Reportable 11/10/18 15:04 Toxic Vacuolation Not Reportable 11/10/18 15:04 Dohle Bodies Not Reportable 11/10/18 15:04 Pelger-Huet Anomaly Not Reportable 11/10/18 15:04 Manuel Rods Not Reportable 11/10/18 15:04 Platelet Estimate Not Reportable 11/10/18 15:04 Clumped Platelets Not Reportable 11/10/18 15:04 Plt Clumps, EDTA Not Reportable 11/10/18 15:04 Large Platelets Not Reportable 11/10/18 15:04 Giant Platelets Not Reportable 11/10/18 15:04 Platelet Satelliting Not Reportable 11/10/18 15:04 Plt Morphology Comment Not Reportable 11/10/18 15:04 RBC Morphology Normal 11/10/18 15:04 Dimorphic RBCs Not Reportable 11/10/18 15:04 Polychromasia Not Reportable 11/10/18 15:04 Hypochromasia Not Reportable 11/10/18 15:04 Poikilocytosis Not Reportable 11/10/18 15:04 Anisocytosis Not Reportable 11/10/18 15:04 Microcytosis Not Reportable 11/10/18 15:04 Macrocytosis Not Reportable 11/10/18 15:04 Spherocytes Not Reportable 11/10/18 15:04 Pappenheimer Bodies Not Reportable 11/10/18 15:04 Sickle Cells Not Reportable 11/10/18 15:04 Target Cells Not Reportable 11/10/18 15:04 Tear Drop Cells Not Reportable 11/10/18 15:04 Ovalocytes Not Reportable 11/10/18 15:04 Helmet Cells Not Reportable 11/10/18 15:04 [place] Bodies Not Reportable 11/10/18 15:04 [place] Rings Not Reportable 11/10/18 15:04 Inez Cells Not Reportable 11/10/18 15:04 Bite Cells Not Reportable 11/10/18 15:04 Crenated Cell Not Reportable 11/10/18 15:04 Elliptocytes Not Reportable 11/10/18 15:04 Acanthocytes (Spur) Not Reportable 11/10/18 15:04 Rouleaux Not Reportable 11/10/18 15:04 Hemoglobin C Crystals Not Reportable 11/10/18 15:04 Schistocytes Not Reportable 11/10/18 15:04 Malaria parasites Not Reportable 11/10/18 15:04 Hood Bodies Not Reportable 11/10/18 15:04 Hem Pathologist Commnt No 11/10/18 15:04 Sodium 140 mmol/L (137-145) 11/11/18 07:40 Potassium 3.8 mmol/L (3.6-5.0) 11/11/18 07:40 Chloride 107.5 mmol/L (98-107) H 11/11/18 07:40 Carbon Dioxide 21 mmol/L (22-30) L 11/11/18 07:40 Anion Gap 15 mmol/L 11/11/18 07:40 BUN 15 mg/dL (9-20) 11/11/18 07:40 Creatinine 0.8 mg/dL (0.8-1.5) 11/11/18 07:40 Estimated GFR > 60 ml/min 11/11/18 07:40 BUN/Creatinine Ratio 19 % 11/11/18 07:40 Glucose 74 mg/dL (75-100) L 11/11/18 07:40 Lactic Acid 0.70 mmol/L (0.7-2.0) 11/10/18 19:50 Calcium 8.9 mg/dL (8.4-10.2) 11/11/18 07:40 Total Bilirubin 0.90 mg/dL (0.1-1.2) 11/10/18 15:04 Direct Bilirubin 0.4 mg/dL (0-0.2) H 11/10/18 15:04 Indirect Bilirubin 0.5 mg/dL 11/10/18 15:04 AST 16 units/L (5-40) 11/10/18 15:04 ALT 14 units/L (7-56) 11/10/18 15:04 Alkaline Phosphatase 78 units/L (35-129) 11/10/18 15:04 C-Reactive Protein 22.20 mg/dL (0.00-1.30) H 11/11/18 07:30 Total Protein 7.5 g/dL (6.3-8.2) 11/10/18 15:04 Albumin 3.5 g/dL (3.9-5) L 11/10/18 15:04 Albumin/Globulin Ratio 0.9 % 11/10/18 15:04 Lipase 47 units/L (13-60) 11/10/18 15:04 Urine Color Giselle (Yellow) 11/10/18 17:46 Urine Turbidity Clear (Clear) 11/10/18 17:46 Urine pH 6.0 (5.0-7.0) 11/10/18 17:46 Ur Specific [place] 1.043 (1.003-1.030) H 11/10/18 17:46 Urine Protein 100 mg/dl mg/dL (Negative) 11/10/18 17:46 Urine Glucose (UA) Neg mg/dL (Negative) 11/10/18 17:46 Urine Ketones 20 mg/dL (Negative) 11/10/18 17:46 Urine Blood Sm (Negative) 11/10/18 17:46 Urine Nitrite Neg (Negative) 11/10/18 17:46 Urine Bilirubin Sm (Negative) 11/10/18 17:46 Urine Ictotest Positive (Negative) 11/10/18 17:46 Urine Urobilinogen 4.0 mg/dL (<2.0) 11/10/18 17:46 Ur Leukocyte Esterase Neg (Negative) 11/10/18 17:46 Urine WBC (Auto) 8.0 /HPF (0.0-6.0) H 11/10/18 17:46 Urine RBC (Auto) 12.0 /HPF (0.0-6.0) 11/10/18 17:46 U Epithel Cells (Auto) 3.0 /HPF (0-13.0) 11/10/18 17:46 Urine Bacteria (Auto) 1+ /HPF (Negative) 11/10/18 17:46 Urine Mucus 3+ /HPF 11/10/18 17:46 Urine Yeast (Budding) 2+ /HPF 11/10/18 17:46 Active Medications - Current Medications Current Medications: Generic Name Dose Route Start Last Admin Trade Name Freq PRN Reason Stop Dose Admin Acetaminophen 650 mg 11/10/18 22:43 Tylenol PO Q4H PRN Pain MILD(1-3)/Fever >100.5/CORTES Enoxaparin Sodium 40 mg 11/11/18 10:00 11/11/18 14:24 Lovenox SUB-Q 40 mg QDAY FLACA Administration Sodium Chloride 1,000 mls @ 125 mls/hr 11/10/18 23:00 11/11/18 08:46 Nacl 0.9% 1000 Ml IV 125 mls/hr DIRECT FLACA Administration Ceftriaxone Sodium 2 gm in 100 mls @ 200 mls/hr 11/11/18 18:00 Rocephin/Ns 2 Gm/100 Ml IV Q24H FLACA Protocol Metronidazole 500 mg in 100 mls @ 100 mls/hr 11/11/18 18:00 Flagyl 500 Mg/100 Ml IV Q8H FLACA Protocol Fluconazole 200 mls @ 100 mls/hr 11/11/18 18:00 Diflucan IV Q24H FLACA Protocol Morphine Sulfate 2 mg 11/10/18 22:43 11/11/18 16:01 Morphine IV 2 mg Q4H PRN Administration Pain, Moderate (4-6) Nicotine 21 mg 11/11/18 10:00 11/11/18 10:00 Habitrol TD Not Given QDAY FLACA Ondansetron HCl 4 mg 11/10/18 22:43 11/11/18 16:01 Zofran IV 4 mg Q4H PRN Administration Nausea And Vomiting Sodium Chloride 10 ml 11/11/18 10:00 11/11/18 10:00 Sodium Chloride Flush Syringe 10 Ml IV Not Given BID FLACA Sodium Chloride 10 ml 11/10/18 22:43 Sodium Chloride Flush Syringe 10 Ml IV PRN PRN LINE FLUSH Nutrition/Malnutrition Assess - Dietary Evaluation Nutrition/Malnutrition Findings: Nutrition Notes Start: 11/11/18 13:58 Freq: Status: Active Protocol: Document 11/11/18 13:58 ELIE (Rec: 11/11/18 14:03 ELIE [email or web address]) Nutrition Notes 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 Says he was not eating. Weight Status Overweight Subjective/Other Information Pt screened for malnutrition risk (wt loss, poor appetite). Surgery consulted. Pt reports last PO meal five days ago. Says his appetite is usually good. Burn Absent Trauma Absent GI Symptoms Diarrhea,Constipation Food Allergy No Skin Integrity/Comment Maxwell score: 20 Current % PO Negligible #1 Nutrition Diagnosis Inadequate oral intake Etiology diverticular abscess As Evidenced by Signs and Symptoms pt NPO Is patient on ventilator? No Is Patient Ambulatory and/or Out of Bed Yes REE-([place]. Jeor-ambulatory/OOB) [ 2470.806 [id number]] Calculation Used for Recommendations [place] Jeor Additional Notes Pro needs 0.8-1g/k-94g/ day Fluid needs 1ml/kcal Nutrition Intervention Change Diet Order: Diet advancement when medically feasible Goal #1 Advance diet to meet nutrient needs Anticipated Discharge Needs: Unable to identify at this time Follow-Up By: 11/13/18 Additional Comments F/U: diet advancement
[2018-11-11] MEDS: FLAGYL 500 MG/100 ML 500 MG/100 ML BAG IV SCH (17:57)
[2018-11-11] MEDS: DIFLUCAN 200 ML IV SCH (19:59)
[2018-11-11] MEDS: ROCEPHIN/NS 2 GM/100 ML 2 GM/100 ML BAG IV SCH (21:15)
[2018-11-11 21:17] LABS: Amphetamine Screen,Urine PRESUMPTIVE NEGATIVE; Benzodiazepines Screen,Urine PRESUMPTIVE NEGATIVE; Cannabinoid Screen,Urine PRESUMPTIVE NEGATIVE; Cocaine Screen,Urine PRESUMPTIVE NEGATIVE; Methadone Screen,Urine PRESUMPTIVE NEGATIVE
[2018-11-11 21:31] LABS: Opiate Screen,Urine PRESUMPTIVE POSITIVE
[2018-11-12] MEDS: FLAGYL 500 MG/100 ML 500 MG/100 ML BAG IV SCH ×3 (03:16→18:05)
[2018-11-12] MEDS: SODIUM CHLORIDE FLUSH SYRINGE 10 ML IV SCH ×2 (04:16→09:39)
[2018-11-12 04:59] LABS: Hematocrit 40.2 % (35.5-45.6); Hemoglobin 13.2 gm/dl (11.8-15.2); Mean Corpuscular HGB Conc 33 % (32-34); Mean Corpuscular Volume 87 fl (84-94); Platelet Count 309 K/mm3 (140-440); Red Blood Count 4.61 M/mm3 (3.65-5.03); Red Cell Distribution Width 14.5 % (13.2-15.2)
[2018-11-12 05:17] LABS: BUN/Creatinine Ratio 16; Blood Urea Nitrogen 13 mg/dL (9-20); Calcium 8.7 mg/dL (8.4-10.2); Hemolysis Index 34
[2018-11-12] MEDS: MORPHINE IV PRN (05:58)
[2018-11-12] MEDS: ZOFRAN IV PRN (05:59)
--- NOTE | 2018-11-12 09:13 | Progress Note ---
Assessment and Plan Pt feeling well. no compl but still requiring narcotics Abd soft, non tender ID eval noted. still elevated wbc clinically doing well. told to hold off on narcotics unless significant pain develops re-assess in am. will attempt cl liq diet in am if no pain noted off of narcotics. f/u wbc in am Selected Entries 11/12/18 11/12/18 03:38 08:01 Temperature 98.2 F Pulse Rate 70 Respiratory 17 Rate O2 Sat by Pulse 95 Oximetry Laboratory Tests 11/11/18 11/12/18 07:40 04:30 WBC 14.2 H 14.3 H Hgb 13.2 Hct 40.2 Objective Vital Signs - 12hr 11/11/18 11/12/18 11/12/18 23:31 01:00 03:38 Temperature 98.7 F 98.2 F Pulse Rate 74 70 Respiratory 17 17 Rate Blood Pressure 125/62 114/69 O2 Sat by Pulse 96 96 98 Oximetry 11/12/18 08:01 Temperature Pulse Rate Respiratory Rate Blood Pressure O2 Sat by Pulse 95 Oximetry - Labs 11/12/18 04:30 11/12/18 04:30 Diabetes panel 11/12/18 Range/Units 04:30 Sodium 143 (137-145) mmol/L Potassium 4.1 (3.6-5.0) mmol/L Chloride 107.2 H (98-107) mmol/L Carbon Dioxide 19 L (22-30) mmol/L BUN 13 (9-20) mg/dL Creatinine 0.8 (0.8-1.5) mg/dL Glucose 61 L (75-100) mg/dL Calcium 8.7 (8.4-10.2) mg/dL Calcium panel 11/12/18 Range/Units 04:30 Calcium 8.7 (8.4-10.2) mg/dL Pituitary panel 11/12/18 Range/Units 04:30 Sodium 143 (137-145) mmol/L Potassium 4.1 (3.6-5.0) mmol/L Chloride 107.2 H (98-107) mmol/L Carbon Dioxide 19 L (22-30) mmol/L BUN 13 (9-20) mg/dL Creatinine 0.8 (0.8-1.5) mg/dL Glucose 61 L (75-100) mg/dL Calcium 8.7 (8.4-10.2) mg/dL Adrenal panel 11/12/18 Range/Units 04:30 Sodium 143 (137-145) mmol/L Potassium 4.1 (3.6-5.0) mmol/L Chloride 107.2 H (98-107) mmol/L Carbon Dioxide 19 L (22-30) mmol/L BUN 13 (9-20) mg/dL Creatinine 0.8 (0.8-1.5) mg/dL Glucose 61 L (75-100) mg/dL Calcium 8.7 (8.4-10.2) mg/dL
[2018-11-12] MEDS: NACL 0.9% 1000 ML 1,000 ML IV SCH ×2 (09:37→19:09)
[2018-11-12] MEDS: LOVENOX SUB-Q SCH (09:38)
[2018-11-12] MEDS: HABITROL TD SCH (09:38)
--- NOTE | 2018-11-12 09:43 | Progress Note ---
Assessment and Plan Cultures: Blood culture 11/10/2018 no growth today. Assessment: 33 y/o male with history of obesity and diverticulosis; admitted on 11/10/2018 due to abdominal pain associated with chills and night sweats for 5 days: 1) Sepsis: Present on admission, Improved, Leukocytosis continuing. Etiology most likely ruptured diverticulitis with an abscess CRP- 22.20. 2) Ruptured diverticulitis with an abscess: CT abdomen showed an 4.7x4.5 cm gas/fluid collection in lower mesenteric fat. Recommendations: - follow-up blood cultures - continue ceftriaxone and flagyl, D2 - continue fluconazole IV, D2 -anticipate discharge on on Cipro 750mg po BID and Flagyl 500 po TID for total 10 days ending 11-20-18 -consider a repeat CT in 2-3 weeks -outpatient f/u with surgery [facility] M: [phone] O:[phone] Subjective Date of service: 11/12/18 Interval history: Patient seen and examined. Denied abdominal pain or SOB. No fevers. Nurses noted, labs and imaging reviewed, discussed with patient. Verbalized understanding. Objective - Exam Narrative Exam: General appearance: Alert in NAD, conversant Eyes: anicteric sclerae, moist conjunctivae; no lid-lag; PERRLA HENT: Atraumatic; oropharynx clear with moist mucous membranes and no mucosal ulcerations/no oral thrush; normal hard and soft palate. Normal external ears. Neck: Trachea midline; supple, no thyromegaly or lymphadenopathy Lungs: CTA, with normal respiratory effort and no intercostal retractions CV: RRR, no murmurs Abdomen: Soft, mild diffuse tenderness umbilical hernia Extremities: No peripheral edema or extremity lymphadenopathy Skin: Normal temperature, turgor and texture; no rash, ulcers or subcutaneous nodules Psych: Appropriate affect, alert and oriented to person, place and time. Neuro: alert and oriented x 3. Moving all extermities - Constitutional Vitals: Vital Signs Temp Pulse Resp BP Pulse Ox 98.2 F 70 17 114/69 95 11/12/18 03:38 11/12/18 03:38 11/12/18 03:38 11/12/18 03:38 11/12/18 08:01 Temperature -Last 24 Hours Temperature 98.2 F Temperature 98.7 F Temperature 97.3 F Temperature 98.8 F Temperature 98.1 F - Labs CBC & Chem 7: 11/12/18 04:30 11/12/18 04:30 Labs: Abnormal lab results 11/11/18 11/12/18 11/12/18 Range/Units 07:30 04:30 04:30 WBC 14.3 H (4.5-11.0) K/mm3 Chloride 107.2 H (98-107) mmol/L Carbon Dioxide 19 L (22-30) mmol/L Glucose 61 L (75-100) mg/dL C-Reactive Protein 22.20 H (0.00-1.30) mg/dL
[2018-11-12] MEDS ORDERED: D50W (25GM) Syringe IV ONE (10:00)
--- NOTE | 2018-11-12 16:39 | Progress Note ---
Assessment and Plan Assessment and plan: Patient is a 33-year-old man history of diverticulosis comes emergency room with complaints of abdominal pain that started 5 days ago. Pain is in the lower quadrant which he describes as a sharp pain, intermittent in 4 hours, intensity 8/10, no radiation, better with pain medications given. He did place a subjective fever chills, no nausea vomiting. The patient was seen at [facility] today and was admitted, he left AMA because he stated he "flipped out" CTAP: Imaging. Contained Abscess, within the mesenteric fat, Perforated, Sigmoid Diverticlum, moderately large umbilical hernia Peritoneal irritation Diverticular Abscess with Microperforation Sepsis Plan: Continue supportive care Keep NPO Continue abx and antifungal Per ID Surgery and ID consulted DVT/GI prophy Plan discussed with patient and Dr. Hinojosa at bedside reviewed imaging with Dr. Hinojosa History Interval history: Patient was seen and examined. Follow-up on current diagnosis of Acute Diverticulitis. Overnight uneventful. Patient denies any chest pain, shortness breath, nausea/vomiting or severe headaches. Imaging, nursing note, chart, labs and old chart reviewed. Discussed with patient. Hospitalist Physical - Physical exam Narrative exam: Gen: WDWN, NAD, Awake, Alert, Orientated HEENT: NCAT, EOMI, PERRL, OP Clear Neck: supple, no adenopathy, no thyromegaly, no JVD CVS/Heart: RRR, normal S1S2, pulses present bilaterally Chest/Lungs: CTA B, Symmetrical chest expansion, good air entry bilaterally GI/Abdomen: soft, diffuse tenderness, good bowel sounds, no guarding or rebound /Bladder: no suprapubic tenderness, no CVA or paraspinal tenderness Extermity/Skin: no c/c/e, no obvious rash MSK: FROM x 4 Neuro: CN 2-12 grossly intact, no new focal deficits Psych: calm - Constitutional Vitals: Temp Pulse Resp BP Pulse Ox 98.8 F 75 18 106/58 100 11/12/18 12:52 11/12/18 12:52 11/12/18 12:52 11/12/18 12:52 11/12/18 12:52 Results - Labs CBC & Chem 7: 11/12/18 04:30 11/12/18 04:30 Labs: Laboratory Last Values WBC 14.3 K/mm3 (4.5-11.0) H 11/12/18 04:30 RBC 4.61 M/mm3 (3.65-5.03) 11/12/18 04:30 Hgb 13.2 gm/dl (11.8-15.2) 11/12/18 04:30 Hct 40.2 % (35.5-45.6) 11/12/18 04:30 MCV 87 fl (84-94) 11/12/18 04:30 MCH 29 pg (28-32) 11/12/18 04:30 MCHC 33 % (32-34) 11/12/18 04:30 RDW 14.5 % (13.2-15.2) 11/12/18 04:30 Plt Count 309 K/mm3 (140-440) 11/12/18 04:30 Lymph % (Auto) 11.5 % (13.4-35.0) L 11/11/18 07:40 [place] % (Auto) 6.8 % (0.0-7.3) 11/11/18 07:40 Eos % (Auto) 3.8 % (0.0-4.3) 11/11/18 07:40 Baso % (Auto) 0.6 % (0.0-1.8) 11/11/18 07:40 Lymph # 1.6 K/mm3 (1.2-5.4) 11/11/18 07:40 [place] # 1.0 K/mm3 (0.0-0.8) H 11/11/18 07:40 Eos # 0.5 K/mm3 (0.0-0.4) H 11/11/18 07:40 Baso # 0.1 K/mm3 (0.0-0.1) 11/11/18 07:40 Add Manual Diff Complete 11/10/18 15:04 Total Counted 100 11/10/18 15:04 Seg Neutrophils % 77.3 % (40.0-70.0) H 11/11/18 07:40 Seg Neuts % (Manual) 83.0 % (40.0-70.0) H 11/10/18 15:04 Band Neutrophils % 0 % 11/10/18 15:04 Lymphocytes % (Manual) 9.0 % (13.4-35.0) L 11/10/18 15:04 Reactive Lymphs % (Man) 0 % 11/10/18 15:04 Monocytes % (Manual) 8.0 % (0.0-7.3) H 11/10/18 15:04 Eosinophils % (Manual) 0 % (0.0-4.3) 11/10/18 15:04 Basophils % (Manual) 0 % (0.0-1.8) 11/10/18 15:04 Metamyelocytes % 0 % 11/10/18 15:04 Myelocytes % 0 % 11/10/18 15:04 Promyelocytes % 0 % 11/10/18 15:04 Blast Cells % 0 % 11/10/18 15:04 Nucleated RBC % Not Reportable 11/10/18 15:04 Seg Neutrophils # 11.0 K/mm3 (1.8-7.7) H 11/11/18 07:40 Seg Neutrophils # Man 18.7 K/mm3 (1.8-7.7) H 11/10/18 15:04 Band Neutrophils # 0.0 K/mm3 11/10/18 15:04 Lymphocytes # (Manual) 2.0 K/mm3 (1.2-5.4) 11/10/18 15:04 Abs React Lymphs (Man) 0.0 K/mm3 11/10/18 15:04 Monocytes # (Manual) 1.8 K/mm3 (0.0-0.8) H 11/10/18 15:04 Eosinophils # (Manual) 0.0 K/mm3 (0.0-0.4) 11/10/18 15:04 Basophils # (Manual) 0.0 K/mm3 (0.0-0.1) 11/10/18 15:04 Metamyelocytes # 0.0 K/mm3 11/10/18 15:04 Myelocytes # 0.0 K/mm3 11/10/18 15:04 Promyelocytes # 0.0 K/mm3 11/10/18 15:04 Blast Cells # 0.0 K/mm3 11/10/18 15:04 WBC Morphology Not Reportable 11/10/18 15:04 Hypersegmented Neuts Not Reportable 11/10/18 15:04 Hyposegmented Neuts Not Reportable 11/10/18 15:04 Hypogranular Neuts Not Reportable 11/10/18 15:04 Smudge Cells Not Reportable 11/10/18 15:04 Toxic Granulation Not Reportable 11/10/18 15:04 Toxic Vacuolation Not Reportable 11/10/18 15:04 Dohle Bodies Not Reportable 11/10/18 15:04 Pelger-Huet Anomaly Not Reportable 11/10/18 15:04 Manuel Rods Not Reportable 11/10/18 15:04 Platelet Estimate Not Reportable 11/10/18 15:04 Clumped Platelets Not Reportable 11/10/18 15:04 Plt Clumps, EDTA Not Reportable 11/10/18 15:04 Large Platelets Not Reportable 11/10/18 15:04 Giant Platelets Not Reportable 11/10/18 15:04 Platelet Satelliting Not Reportable 11/10/18 15:04 Plt Morphology Comment Not Reportable 11/10/18 15:04 RBC Morphology Normal 11/10/18 15:04 Dimorphic RBCs Not Reportable 11/10/18 15:04 Polychromasia Not Reportable 11/10/18 15:04 Hypochromasia Not Reportable 11/10/18 15:04 Poikilocytosis Not Reportable 11/10/18 15:04 Anisocytosis Not Reportable 11/10/18 15:04 Microcytosis Not Reportable 11/10/18 15:04 Macrocytosis Not Reportable 11/10/18 15:04 Spherocytes Not Reportable 11/10/18 15:04 Pappenheimer Bodies Not Reportable 11/10/18 15:04 Sickle Cells Not Reportable 11/10/18 15:04 Target Cells Not Reportable 11/10/18 15:04 Tear Drop Cells Not Reportable 11/10/18 15:04 Ovalocytes Not Reportable 11/10/18 15:04 Helmet Cells Not Reportable 11/10/18 15:04 [place] Bodies Not Reportable 11/10/18 15:04 [place] Rings Not Reportable 11/10/18 15:04 [place] Cells Not Reportable 11/10/18 15:04 Bite Cells Not Reportable 11/10/18 15:04 Crenated Cell Not Reportable 11/10/18 15:04 Elliptocytes Not Reportable 11/10/18 15:04 Acanthocytes (Spur) Not Reportable 11/10/18 15:04 Rouleaux Not Reportable 11/10/18 15:04 Hemoglobin C Crystals Not Reportable 11/10/18 15:04 Schistocytes Not Reportable 11/10/18 15:04 Malaria parasites Not Reportable 11/10/18 15:04 Hood Bodies Not Reportable 11/10/18 15:04 Hem Pathologist Commnt No 11/10/18 15:04 Sodium 143 mmol/L (137-145) 11/12/18 04:30 Potassium 4.1 mmol/L (3.6-5.0) 11/12/18 04:30 Chloride 107.2 mmol/L (98-107) H 11/12/18 04:30 Carbon Dioxide 19 mmol/L (22-30) L 11/12/18 04:30 Anion Gap 21 mmol/L 11/12/18 04:30 BUN 13 mg/dL (9-20) 11/12/18 04:30 Creatinine 0.8 mg/dL (0.8-1.5) 11/12/18 04:30 Estimated GFR > 60 ml/min 11/12/18 04:30 BUN/Creatinine Ratio 16 % 11/12/18 04:30 Glucose 61 mg/dL (75-100) L 11/12/18 04:30 Lactic Acid 0.70 mmol/L (0.7-2.0) 11/10/18 19:50 Calcium 8.7 mg/dL (8.4-10.2) 11/12/18 04:30 Total Bilirubin 0.90 mg/dL (0.1-1.2) 11/10/18 15:04 Direct Bilirubin 0.4 mg/dL (0-0.2) H 11/10/18 15:04 Indirect Bilirubin 0.5 mg/dL 11/10/18 15:04 AST 16 units/L (5-40) 11/10/18 15:04 ALT 14 units/L (7-56) 11/10/18 15:04 Alkaline Phosphatase 78 units/L (35-129) 11/10/18 15:04 C-Reactive Protein 22.20 mg/dL (0.00-1.30) H 11/11/18 07:30 Total Protein 7.5 g/dL (6.3-8.2) 11/10/18 15:04 Albumin 3.5 g/dL (3.9-5) L 11/10/18 15:04 Albumin/Globulin Ratio 0.9 % 11/10/18 15:04 Lipase 47 units/L (13-60) 11/10/18 15:04 Urine Color Giselle (Yellow) 11/10/18 17:46 Urine Turbidity Clear (Clear) 11/10/18 17:46 Urine pH 6.0 (5.0-7.0) 11/10/18 17:46 Ur Specific [place] 1.043 (1.003-1.030) H 11/10/18 17:46 Urine Protein 100 mg/dl mg/dL (Negative) 11/10/18 17:46 Urine Glucose (UA) Neg mg/dL (Negative) 11/10/18 17:46 Urine Ketones 20 mg/dL (Negative) 11/10/18 17:46 Urine Blood Sm (Negative) 11/10/18 17:46 Urine Nitrite Neg (Negative) 11/10/18 17:46 Urine Bilirubin Sm (Negative) 11/10/18 17:46 Urine Ictotest Positive (Negative) 11/10/18 17:46 Urine Urobilinogen 4.0 mg/dL (<2.0) 11/10/18 17:46 Ur Leukocyte Esterase Neg (Negative) 11/10/18 17:46 Urine WBC (Auto) 8.0 /HPF (0.0-6.0) H 11/10/18 17:46 Urine RBC (Auto) 12.0 /HPF (0.0-6.0) 11/10/18 17:46 U Epithel Cells (Auto) 3.0 /HPF (0-13.0) 11/10/18 17:46 Urine Bacteria (Auto) 1+ /HPF (Negative) 11/10/18 17:46 Urine Mucus 3+ /HPF 11/10/18 17:46 Urine Yeast (Budding) 2+ /HPF 11/10/18 17:46 Urine Opiates Screen Presumptive positive 11/11/18 Unknown Urine Methadone Screen Presumptive negative 11/11/18 Unknown Ur Barbiturates Screen Presumptive negative 11/11/18 Unknown Ur Phencyclidine Scrn Presumptive negative 11/11/18 Unknown Ur Amphetamines Screen Presumptive negative 11/11/18 Unknown U Benzodiazepines Scrn Presumptive negative 11/11/18 Unknown Urine Cocaine Screen Presumptive negative 04/22/19 Unknown U Marijuana (THC) Screen Presumptive negative 11/11/18 Unknown Drugs of Abuse Note Disclamer 11/11/18 Unknown Active Medications - Current Medications Current Medications: Generic Name Dose Route Start Last Admin Trade Name Freq PRN Reason Stop Dose Admin Acetaminophen 650 mg 11/10/18 22:43 Tylenol PO Q4H PRN Pain MILD(1-3)/Fever >100.5/CORTES Enoxaparin Sodium 40 mg 11/11/18 10:00 11/12/18 09:38 Lovenox SUB-Q 40 mg QDAY FLACA Administration Sodium Chloride 1,000 mls @ 125 mls/hr 11/10/18 23:00 11/12/18 09:37 Nacl 0.9% 1000 Ml IV 125 mls/hr DIRECT FLACA Administration Ceftriaxone Sodium 2 gm in 100 mls @ 200 mls/hr 11/11/18 18:00 11/12/18 04:19 Rocephin/Ns 2 Gm/100 Ml IV Infused Q24H FLACA Infusion Protocol Metronidazole 500 mg in 100 mls @ 100 mls/hr 11/11/18 18:00 11/12/18 09:59 Flagyl 500 Mg/100 Ml IV 100 mls/hr Q8H FLACA Administration Protocol Fluconazole 200 mls @ 100 mls/hr 11/11/18 18:00 11/12/18 04:20 Diflucan IV Infused Q24H FLACA Infusion Protocol Lorazepam 1 mg 11/12/18 10:00 Ativan IV QHS PRN Insomnia Morphine Sulfate 2 mg 11/10/18 22:43 11/12/18 05:58 Morphine IV 2 mg Q4H PRN Administration Pain, Moderate (4-6) Nicotine 21 mg 11/11/18 10:00 11/12/18 09:38 Habitrol TD 21 mg QDAY FLACA Administration Ondansetron HCl 4 mg 11/10/18 22:43 11/12/18 05:59 Zofran IV 4 mg Q4H PRN Administration Nausea And Vomiting Sodium Chloride 10 ml 11/11/18 10:00 11/12/18 09:39 Sodium Chloride Flush Syringe 10 Ml IV 10 ml BID FLACA Administration Sodium Chloride 10 ml 11/10/18 22:43 Sodium Chloride Flush Syringe 10 Ml IV PRN PRN LINE FLUSH Nutrition/Malnutrition Assess - Dietary Evaluation Nutrition/Malnutrition Findings: Nutrition Notes Start: 11/11/18 13:58 Freq: Status: Active Protocol: Document 11/11/18 13:58 ELIE (Rec: 11/11/18 14:03 ELIE LANZA-FNMITA 1) Nutrition Notes 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 Says he was not eating. Weight Status Overweight Subjective/Other Information Pt screened for malnutrition risk (wt loss, poor appetite). Surgery consulted. Pt reports last PO meal five days ago. Says his appetite is usually good. Burn Absent Trauma Absent GI Symptoms Diarrhea,Constipation Food Allergy No Skin Integrity/Comment Maxwell score: 20 Current % PO Negligible #1 Nutrition Diagnosis Inadequate oral intake Etiology diverticular abscess As Evidenced by Signs and Symptoms pt NPO Is patient on ventilator? No Is Patient Ambulatory and/or Out of Bed Yes REE-(Marivel-StErica Zimmerman-ambulatory/OOB) [ [id number] [id number]] Calculation Used for Recommendations Maury-St Elsie Additional Notes Pro needs 0.8-1g/k-94g/ day Fluid needs 1ml/kcal Nutrition Intervention Change Diet Order: Diet advancement when medically feasible Goal #1 Advance diet to meet nutrient needs Anticipated Discharge Needs: Unable to identify at this time Follow-Up By: 11/13/18 Additional Comments F/U: diet advancement
[2018-11-12] MEDS: ROCEPHIN/NS 2 GM/100 ML 2 GM/100 ML BAG IV SCH (17:31)
[2018-11-12] MEDS: DIFLUCAN 200 ML IV SCH (19:11)
[2018-11-12] MEDS: ATIVAN IV PRN (21:09)
[2018-11-13] MEDS: FLAGYL 500 MG/100 ML 500 MG/100 ML BAG IV SCH ×3 (05:43→22:09)
[2018-11-13] MEDS: SODIUM CHLORIDE FLUSH SYRINGE 10 ML IV PRN (05:49)
[2018-11-13] MEDS: SODIUM CHLORIDE FLUSH SYRINGE 10 ML IV SCH ×3 (05:49→22:10)
[2018-11-13] MEDS: LOVENOX SUB-Q SCH ×2 (07:44→10:40)
[2018-11-13] MEDS: NACL 0.9% 1000 ML 1,000 ML IV SCH (07:44)
[2018-11-13] MEDS: HABITROL TD SCH ×2 (07:44→10:40)
[2018-11-13 08:51] LABS: Basophils # (Auto) 0.2 K/mm3 (0.0-0.1); Basophils % (Auto) 1.1 % (0.0-1.8); Eosinophils # (Auto) 0.3 K/mm3 (0.0-0.4); Hematocrit 42.5 % (35.5-45.6); Hemoglobin 14.1 gm/dl (11.8-15.2); Mean Corpuscular HGB Conc 33 % (32-34); Mean Corpuscular Volume 87 fl (84-94); Monocytes # (Auto) 1.1 K/mm3 (0.0-0.8); Monocytes % (Auto) 6.5 % (0.0-7.3); Platelet Count 376 K/mm3 (140-440); Red Cell Distribution Width 14.5 % (13.2-15.2)
[2018-11-13 09:12] LABS: BUN/Creatinine Ratio 12; Blood Urea Nitrogen 7 mg/dL (9-20); Calcium 8.8 mg/dL (8.4-10.2); Hemolysis Index 3
--- NOTE | 2018-11-13 09:53 | Progress Note ---
Assessment and Plan Cultures: Blood culture 11/10/2018 no growth to date. Assessment: 33 y/o male with history of obesity and diverticulosis; admitted on 11/10/2018 due to abdominal pain associated with chills and night sweats for 5 days: 1) Sepsis: Present on admission, Improved, Leukocytosis rending up. Etiology most likely ruptured diverticulitis with an abscess CRP- 22.20. 2) Ruptured diverticulitis with an abscess: CT abdomen showed an 4.7x4.5 cm gas/fluid collection in lower mesenteric fat. Recommendations: - follow-up blood cultures - continue ceftriaxone and flagyl, D3 - continue fluconazole IV, D3 -anticipate discharge on on Cipro 750mg po BID and Flagyl 500 po TID for total 10 days ending 11-20-18 -WBC trending up, will need f/u CT of abdomen as well as outpatient colonoscopy in 6-8 wks -Patient wants leave AMA, discussed risks involved in leaving hospital [facility] M: [phone] O:[phone] Subjective Date of service: 11/13/18 Interval history: Patient seen and examined. Denied abdominal pain or SOB. No fevers. Stated that he wanted to leave the hospital AMA, advised patient of risk involved in leaving the hospital. Verbalized understanding. Objective - Exam Narrative Exam: General appearance: Alert in NAD, conversant Eyes: anicteric sclerae, moist conjunctivae; no lid-lag; PERRLA HENT: Atraumatic; oropharynx clear with moist mucous membranes and no mucosal ulcerations/no oral thrush; normal hard and soft palate. Normal external ears. Neck: Trachea midline; supple, no thyromegaly or lymphadenopathy Lungs: CTA, with normal respiratory effort and no intercostal retractions CV: RRR, no murmurs Abdomen: Soft, mild diffuse tenderness umbilical hernia Extremities: No peripheral edema or extremity lymphadenopathy Skin: Normal temperature, turgor and texture; no rash, ulcers or subcutaneous nodules Psych: Appropriate affect, alert and oriented to person, place and time. Neuro: alert and oriented x 3. Moving all extermities - Constitutional Vitals: Vital Signs Temp Pulse Resp BP Pulse Ox 98.5 F 75 18 113/47 98 11/13/18 07:20 11/13/18 07:20 11/13/18 07:20 11/13/18 07:20 11/13/18 09:18 Temperature -Last 24 Hours Temperature 98.5 F Temperature 97.9 F Temperature 99.2 F Temperature 98.9 F Temperature 98.8 F - Labs CBC & Chem 7: 11/13/18 07:55 11/13/18 07:55 Labs: Abnormal lab results 11/13/18 11/13/18 Range/Units 07:55 07:55 WBC 17.0 H (4.5-11.0) K/mm3 Lymph % (Auto) 12.0 L (13.4-35.0) % [place] # 1.1 H (0.0-0.8) K/mm3 Baso # 0.2 H (0.0-0.1) K/mm3 Seg Neutrophils % 78.4 H (40.0-70.0) % Seg Neutrophils # 13.3 H (1.8-7.7) K/mm3 Carbon Dioxide 20 L (22-30) mmol/L BUN 7 L (9-20) mg/dL Creatinine 0.6 L (0.8-1.5) mg/dL Glucose 63 L (75-100) mg/dL
--- NOTE | 2018-11-13 11:10 | Progress Note ---
Assessment and Plan Pt threatening to sign out AMA. denies abd pain Abd soft, non tender rilsing wbc? clinically stable attempt cl liq diet will need f/u CT abd as well as outpt colonoscopy in 6-8 wks will obtian GI eval while in hospital so that they can familiarize themselves with pt and make outpt f/u arrangements Selected Entries 11/13/18 07:20 Temperature 98.5 F Pulse Rate 75 Respiratory 18 Rate Blood Pressure 113/47 [Right] Laboratory Tests 11/12/18 11/13/18 11/13/18 04:30 07:55 07:55 WBC 14.3 H 17.0 H Hgb 14.1 Hct 42.5 Sodium 138 Potassium 3.8 Chloride 100.6 Carbon Dioxide 20 L BUN 7 L Creatinine 0.6 L Objective Vital Signs - 12hr 11/13/18 11/13/18 11/13/18 00:52 04:21 07:20 Temperature 97.9 F 98.5 F Pulse Rate 72 75 Respiratory 16 18 Rate Blood Pressure 101/36 Blood Pressure 113/47 [Right] O2 Sat by Pulse 98 97 96 Oximetry 11/13/18 09:18 Temperature Pulse Rate Respiratory Rate Blood Pressure Blood Pressure [Right] O2 Sat by Pulse 98 Oximetry - Labs 11/13/18 07:55 11/13/18 07:55 Diabetes panel 11/13/18 Range/Units 07:55 Sodium 138 (137-145) mmol/L Potassium 3.8 (3.6-5.0) mmol/L Chloride 100.6 (98-107) mmol/L Carbon Dioxide 20 L (22-30) mmol/L BUN 7 L (9-20) mg/dL Creatinine 0.6 L (0.8-1.5) mg/dL Glucose 63 L (75-100) mg/dL Calcium 8.8 (8.4-10.2) mg/dL Calcium panel 11/13/18 Range/Units 07:55 Calcium 8.8 (8.4-10.2) mg/dL Pituitary panel 11/13/18 Range/Units 07:55 Sodium 138 (137-145) mmol/L Potassium 3.8 (3.6-5.0) mmol/L Chloride 100.6 (98-107) mmol/L Carbon Dioxide 20 L (22-30) mmol/L BUN 7 L (9-20) mg/dL Creatinine 0.6 L (0.8-1.5) mg/dL Glucose 63 L (75-100) mg/dL Calcium 8.8 (8.4-10.2) mg/dL Adrenal panel 11/13/18 Range/Units 07:55 Sodium 138 (137-145) mmol/L Potassium 3.8 (3.6-5.0) mmol/L Chloride 100.6 (98-107) mmol/L Carbon Dioxide 20 L (22-30) mmol/L BUN 7 L (9-20) mg/dL Creatinine 0.6 L (0.8-1.5) mg/dL Glucose 63 L (75-100) mg/dL Calcium 8.8 (8.4-10.2) mg/dL
--- NOTE | 2018-11-13 12:15 | Gastroenterology Consultation ---
History of Present Illness - Reason for Consult Consult date: 11/13/18 diverticulitis Requesting physician: TRA LEMON - History of Present Illness Patient is a 33 y/o male with PMH of diverticulitis and umbilical hernia who presented to ED with c/o lower abdominal pain with associated fever on 11/10/18 and was admitted with acute diverticulitis with abscess and microperforation seen on CT. He has clinically improved on antibiotics with abd pain now resolved. GI has been consulted by surgery for an outpatient colonoscopy. Patient is previously known to our service from a previous hospital consult on 08/04/2017 at [facility] for a prior episode of diverticulitis with an outpatient colonoscopy recommended at that time, however the patient did not follow up in clinic to have done due to lack of insurance. This afternoon patient was resting in bed w/o acute distress. Reports feeling better with no fever, abd pain, or N/V. Tolerating clears. Last BM was this am with no blood in stool. No Fhx of IBD or colon cancer. Past History Past Medical History: other (diverticulitis, umbilical hernia) Past Surgical History: Other (Left leg) Social history: smoking. denies: alcohol abuse Family history: hypertension Medications and Allergies Allergies Allergy/AdvReac Type Severity Reaction Status Date / Time hydrocodone Allergy Unknown Verified 11/10/18 14:51 Home Medications Medication Instructions Recorded Confirmed Last Taken Type Acetaminophen/Codeine 1 tab PO Q6H PRN #12 tab 09/18/14 Unknown Rx [Acetaminophen-Codeine #3 TAB] Cyclobenzaprine [Flexeril 10mg] 10 mg PO Q8H PRN #15 tablet 09/18/14 Unknown Rx Ibuprofen [Motrin 800 MG tab] 800 mg PO Q8H PRN #30 tablet 09/18/14 Unknown Rx Active Meds: Active Medications Acetaminophen (Tylenol) 650 mg PO Q4H PRN PRN Reason: Pain MILD(1-3)/Fever >100.5/CORTES Enoxaparin Sodium (Lovenox) 40 mg SUB-Q QDAY FLACA Last Admin: 11/13/18 10:40 Dose: Not Given Documented by: Sodium Chloride (Nacl 0.9% 1000 Ml) 1,000 mls @ 125 mls/hr IV DIRECT FLACA Last Admin: 11/13/18 07:44 Dose: 125 mls/hr Documented by: Ceftriaxone Sodium (Rocephin/Ns 2 Gm/100 Ml) 2 gm in 100 mls @ 200 mls/hr IV Q24H [facility]; Protocol Last Admin: 11/12/18 17:31 Dose: 200 mls/hr Documented by: Metronidazole (Flagyl 500 Mg/100 Ml) 500 mg in 100 mls @ 100 mls/hr IV Q8H [facility]; Protocol Last Admin: 11/13/18 10:46 Dose: 100 mls/hr Documented by: Fluconazole (Diflucan) 200 mls @ 100 mls/hr IV Q24H [facility]; Protocol Last Admin: 11/12/18 19:11 Dose: 100 mls/hr Documented by: Lorazepam (Ativan) 1 mg IV QHS PRN PRN Reason: Insomnia Last Admin: 11/12/18 21:09 Dose: 1 mg Documented by: Morphine Sulfate (Morphine) 2 mg IV Q4H PRN PRN Reason: Pain, Moderate (4-6) Last Admin: 11/12/18 05:58 Dose: 2 mg Documented by: Nicotine (Habitrol) 21 mg TD QDAY [facility] Last Admin: 11/13/18 10:40 Dose: Not Given Documented by: Ondansetron HCl (Zofran) 4 mg IV Q4H PRN PRN Reason: Nausea And Vomiting Last Admin: 11/12/18 05:59 Dose: 4 mg Documented by: Sodium Chloride (Sodium Chloride Flush Syringe 10 Ml) 10 ml IV BID [facility] Last Admin: 11/13/18 05:49 Dose: 10 ml Documented by: Sodium Chloride (Sodium Chloride Flush Syringe 10 Ml) 10 ml IV PRN PRN PRN Reason: LINE FLUSH Last Admin: 11/13/18 05:49 Dose: 10 ml Documented by: medications reviewed/updated as required Review of Systems - Review of Systems All systems: negative Gastrointestinal: abdominal pain (resolved) Exam - Constitutional Vital Signs: Temp Pulse Resp BP Pulse Ox 98.3 F 83 19 89/26 95 11/13/18 11:55 11/13/18 11:55 11/13/18 11:55 11/13/18 11:55 11/13/18 11:55 General appearance: no acute distress - EENT Eyes: PERRL, EOM intact ENT: hearing intact - Respiratory Respiratory: bilateral: CTA - Cardiovascular Rhythm: regular - Gastrointestinal General gastrointestinal: Present: soft, non-tender, non-distended, normal bowel sounds - Neurologic Neurological: alert and oriented x3 - Labs CBC & Chem 7: 11/13/18 07:55 11/13/18 07:55 Lab Results: Laboratory Results - last 24 hr 11/13/18 11/13/18 07:55 07:55 WBC 17.0 H RBC 4.90 Hgb 14.1 Hct 42.5 MCV 87 MCH 29 MCHC 33 RDW 14.5 Plt Count 376 Lymph % (Auto) 12.0 L [place] % (Auto) 6.5 Eos % (Auto) 2.0 Baso % (Auto) 1.1 Lymph # 2.0 [place] # 1.1 H Eos # 0.3 Baso # 0.2 H Seg Neutrophils % 78.4 H Seg Neutrophils # 13.3 H Sodium 138 Potassium 3.8 Chloride 100.6 Carbon Dioxide 20 L Anion Gap 21 BUN 7 L Creatinine 0.6 L Estimated GFR > 60 BUN/Creatinine Ratio 12 Glucose 63 L Calcium 8.8 Assessment and Plan 1.acute diverticulitis with abscess and microperforation -afebrile -WBC 17 -H/H WNL-no signs of bleeding -clinically, patient has improved on antibiotics with abd pain now resolved. Denies N/V. Tolerating clear. -continue antibiotics -continue supportive care -recommend patient f/u in clinic upon discharge to schedule outpatient colonoscopy in ~6 weeks once acute diverticulitis has resolved to r/o IBD or malignancy (discussed need/importance of f/u with patient with understanding voiced; office card/information given to patient) -further management per surgery -GI will sign off, please call if needed
--- NOTE | 2018-11-13 16:14 | Progress Note ---
Assessment and Plan Assessment and plan: Patient is a 33-year-old man history of diverticulosis comes emergency room with complaints of abdominal pain that started 5 days ago. Pain is in the lower quadrant which he describes as a sharp pain, intermittent in 4 hours, intensity 8/10, no radiation, better with pain medications given. He did place a subjective fever chills, no nausea vomiting. The patient was seen at [facility] today and was admitted, he left AMA because he stated he "flipped out" CTAP: Imaging. Contained Abscess, within the mesenteric fat, Perforated, Sigmoid Diverticlum, moderately large umbilical hernia Peritoneal irritation: continue abx Diverticular Abscess with Microperforation; bowel rest, abx Sepsis due to diverticulitis: ID is following, treat with abx Hypoglycemia: start 1/2nss with dextrose additive History Interval history: Patient was seen and examined. Follow-up on current diagnosis of Acute Diverticulitis. Overnight uneventful. Patient denies any chest pain, shortness breath, nausea/vomiting or severe headaches. Imaging, nursing note, chart, labs and old chart reviewed. Discussed with patient. Hospitalist Physical - Physical exam Narrative exam: Gen: WDWN, NAD, Awake, Alert, Orientated HEENT: NCAT, EOMI, PERRL, OP Clear Neck: supple, no adenopathy, no thyromegaly, no JVD CVS/Heart: RRR, normal S1S2, pulses present bilaterally Chest/Lungs: CTA B, Symmetrical chest expansion, good air entry bilaterally GI/Abdomen: soft, diffuse tenderness, good bowel sounds, no guarding or rebound /Bladder: no suprapubic tenderness, no CVA or paraspinal tenderness Extermity/Skin: no c/c/e, no obvious rash MSK: FROM x 4 Neuro: CN 2-12 grossly intact, no new focal deficits Psych: calm - Constitutional Vitals: Temp Pulse Resp BP Pulse Ox 98.6 F 72 18 138/77 99 11/13/18 15:45 11/13/18 15:45 11/13/18 15:45 11/13/18 15:45 11/13/18 15:45 Results - Labs CBC & Chem 7: 11/13/18 07:55 11/13/18 07:55 Labs: Laboratory Last Values WBC 17.0 K/mm3 (4.5-11.0) H 11/13/18 07:55 RBC 4.90 M/mm3 (3.65-5.03) 11/13/18 07:55 Hgb 14.1 gm/dl (11.8-15.2) 11/13/18 07:55 Hct 42.5 % (35.5-45.6) 11/13/18 07:55 MCV 87 fl (84-94) 11/13/18 07:55 MCH 29 pg (28-32) 11/13/18 07:55 MCHC 33 % (32-34) 11/13/18 07:55 RDW 14.5 % (13.2-15.2) 11/13/18 07:55 Plt Count 376 K/mm3 (140-440) 11/13/18 07:55 Lymph % (Auto) 12.0 % (13.4-35.0) L 11/13/18 07:55 [place] % (Auto) 6.5 % (0.0-7.3) 11/13/18 07:55 Eos % (Auto) 2.0 % (0.0-4.3) 11/13/18 07:55 Baso % (Auto) 1.1 % (0.0-1.8) 11/13/18 07:55 Lymph # 2.0 K/mm3 (1.2-5.4) 11/13/18 07:55 [place] # 1.1 K/mm3 (0.0-0.8) H 11/13/18 07:55 Eos # 0.3 K/mm3 (0.0-0.4) 11/13/18 07:55 Baso # 0.2 K/mm3 (0.0-0.1) H 11/13/18 07:55 Add Manual Diff Complete 11/10/18 15:04 Total Counted 100 11/10/18 15:04 Seg Neutrophils % 78.4 % (40.0-70.0) H 11/13/18 07:55 Seg Neuts % (Manual) 83.0 % (40.0-70.0) H 11/10/18 15:04 Band Neutrophils % 0 % 11/10/18 15:04 Lymphocytes % (Manual) 9.0 % (13.4-35.0) L 11/10/18 15:04 Reactive Lymphs % (Man) 0 % 11/10/18 15:04 Monocytes % (Manual) 8.0 % (0.0-7.3) H 11/10/18 15:04 Eosinophils % (Manual) 0 % (0.0-4.3) 11/10/18 15:04 Basophils % (Manual) 0 % (0.0-1.8) 11/10/18 15:04 Metamyelocytes % 0 % 11/10/18 15:04 Myelocytes % 0 % 11/10/18 15:04 Promyelocytes % 0 % 11/10/18 15:04 Blast Cells % 0 % 11/10/18 15:04 Nucleated RBC % Not Reportable 11/10/18 15:04 Seg Neutrophils # 13.3 K/mm3 (1.8-7.7) H 11/13/18 07:55 Seg Neutrophils # Man 18.7 K/mm3 (1.8-7.7) H 11/10/18 15:04 Band Neutrophils # 0.0 K/mm3 11/10/18 15:04 Lymphocytes # (Manual) 2.0 K/mm3 (1.2-5.4) 11/10/18 15:04 Abs React Lymphs (Man) 0.0 K/mm3 11/10/18 15:04 Monocytes # (Manual) 1.8 K/mm3 (0.0-0.8) H 11/10/18 15:04 Eosinophils # (Manual) 0.0 K/mm3 (0.0-0.4) 11/10/18 15:04 Basophils # (Manual) 0.0 K/mm3 (0.0-0.1) 11/10/18 15:04 Metamyelocytes # 0.0 K/mm3 11/10/18 15:04 Myelocytes # 0.0 K/mm3 11/10/18 15:04 Promyelocytes # 0.0 K/mm3 11/10/18 15:04 Blast Cells # 0.0 K/mm3 11/10/18 15:04 WBC Morphology Not Reportable 11/10/18 15:04 Hypersegmented Neuts Not Reportable 11/10/18 15:04 Hyposegmented Neuts Not Reportable 11/10/18 15:04 Hypogranular Neuts Not Reportable 11/10/18 15:04 Smudge Cells Not Reportable 11/10/18 15:04 Toxic Granulation Not Reportable 11/10/18 15:04 Toxic Vacuolation Not Reportable 11/10/18 15:04 Dohle Bodies Not Reportable 11/10/18 15:04 Pelger-Huet Anomaly Not Reportable 11/10/18 15:04 Manuel Rods Not Reportable 11/10/18 15:04 Platelet Estimate Not Reportable 11/10/18 15:04 Clumped Platelets Not Reportable 11/10/18 15:04 Plt Clumps, EDTA Not Reportable 11/10/18 15:04 Large Platelets Not Reportable 11/10/18 15:04 Giant Platelets Not Reportable 11/10/18 15:04 Platelet Satelliting Not Reportable 11/10/18 15:04 Plt Morphology Comment Not Reportable 11/10/18 15:04 RBC Morphology Normal 11/10/18 15:04 Dimorphic RBCs Not Reportable 11/10/18 15:04 Polychromasia Not Reportable 11/10/18 15:04 Hypochromasia Not Reportable 11/10/18 15:04 Poikilocytosis Not Reportable 11/10/18 15:04 Anisocytosis Not Reportable 11/10/18 15:04 Microcytosis Not Reportable 11/10/18 15:04 Macrocytosis Not Reportable 11/10/18 15:04 Spherocytes Not Reportable 11/10/18 15:04 Pappenheimer Bodies Not Reportable 11/10/18 15:04 Sickle Cells Not Reportable 11/10/18 15:04 Target Cells Not Reportable 11/10/18 15:04 Tear Drop Cells Not Reportable 11/10/18 15:04 Ovalocytes Not Reportable 11/10/18 15:04 Helmet Cells Not Reportable 11/10/18 15:04 Petit-[place] Bodies Not Reportable 11/10/18 15:04 [place] Rings Not Reportable 11/10/18 15:04 Inez Cells Not Reportable 11/10/18 15:04 Bite Cells Not Reportable 11/10/18 15:04 Crenated Cell Not Reportable 11/10/18 15:04 Elliptocytes Not Reportable 11/10/18 15:04 Acanthocytes (Spur) Not Reportable 11/10/18 15:04 Rouleaux Not Reportable 11/10/18 15:04 Hemoglobin C Crystals Not Reportable 11/10/18 15:04 Schistocytes Not Reportable 11/10/18 15:04 Malaria parasites Not Reportable 11/10/18 15:04 Hood Bodies Not Reportable 11/10/18 15:04 Hem Pathologist Commnt No 11/10/18 15:04 Sodium 138 mmol/L (137-145) 11/13/18 07:55 Potassium 3.8 mmol/L (3.6-5.0) 11/13/18 07:55 Chloride 100.6 mmol/L (98-107) 11/13/18 07:55 Carbon Dioxide 20 mmol/L (22-30) L 11/13/18 07:55 Anion Gap 21 mmol/L 11/13/18 07:55 BUN 7 mg/dL (9-20) L 11/13/18 07:55 Creatinine 0.6 mg/dL (0.8-1.5) L 11/13/18 07:55 Estimated GFR > 60 ml/min 11/13/18 07:55 BUN/Creatinine Ratio 12 % 11/13/18 07:55 Glucose 63 mg/dL (75-100) L 11/13/18 07:55 Lactic Acid 0.70 mmol/L (0.7-2.0) 11/10/18 19:50 Calcium 8.8 mg/dL (8.4-10.2) 11/13/18 07:55 Total Bilirubin 0.90 mg/dL (0.1-1.2) 11/10/18 15:04 Direct Bilirubin 0.4 mg/dL (0-0.2) H 11/10/18 15:04 Indirect Bilirubin 0.5 mg/dL 11/10/18 15:04 AST 16 units/L (5-40) 11/10/18 15:04 ALT 14 units/L (7-56) 11/10/18 15:04 Alkaline Phosphatase 78 units/L (35-129) 11/10/18 15:04 C-Reactive Protein 22.20 mg/dL (0.00-1.30) H 11/11/18 07:30 Total Protein 7.5 g/dL (6.3-8.2) 11/10/18 15:04 Albumin 3.5 g/dL (3.9-5) L 11/10/18 15:04 Albumin/Globulin Ratio 0.9 % 11/10/18 15:04 Lipase 47 units/L (13-60) 11/10/18 15:04 Urine Color Giselle (Yellow) 11/10/18 17:46 Urine Turbidity Clear (Clear) 11/10/18 17:46 Urine pH 6.0 (5.0-7.0) 11/10/18 17:46 Ur Specific [place] 1.043 (1.003-1.030) H 11/10/18 17:46 Urine Protein 100 mg/dl mg/dL (Negative) 11/10/18 17:46 Urine Glucose (UA) Neg mg/dL (Negative) 11/10/18 17:46 Urine Ketones 20 mg/dL (Negative) 11/10/18 17:46 Urine Blood Sm (Negative) 11/10/18 17:46 Urine Nitrite Neg (Negative) 11/10/18 17:46 Urine Bilirubin Sm (Negative) 11/10/18 17:46 Urine Ictotest Positive (Negative) 11/10/18 17:46 Urine Urobilinogen 4.0 mg/dL (<2.0) 11/10/18 17:46 Ur Leukocyte Esterase Neg (Negative) 11/10/18 17:46 Urine WBC (Auto) 8.0 /HPF (0.0-6.0) H 11/10/18 17:46 Urine RBC (Auto) 12.0 /HPF (0.0-6.0) 11/10/18 17:46 U Epithel Cells (Auto) 3.0 /HPF (0-13.0) 11/10/18 17:46 Urine Bacteria (Auto) 1+ /HPF (Negative) 11/10/18 17:46 Urine Mucus 3+ /HPF 11/10/18 17:46 Urine Yeast (Budding) 2+ /HPF 11/10/18 17:46 Urine Opiates Screen Presumptive positive 11/11/18 Unknown Urine Methadone Screen Presumptive negative 11/11/18 Unknown Ur Barbiturates Screen Presumptive negative 11/11/18 Unknown Ur Phencyclidine Scrn Presumptive negative 11/11/18 Unknown Ur Amphetamines Screen Presumptive negative 11/11/18 Unknown U Benzodiazepines Scrn Presumptive negative 11/11/18 Unknown Urine Cocaine Screen Presumptive negative 11/11/18 Unknown U Marijuana (THC) Screen Presumptive negative 11/11/18 Unknown Drugs of Abuse Note Disclamer 11/11/18 Unknown Active Medications - Current Medications Current Medications: Generic Name Dose Route Start Last Admin Trade Name Freq PRN Reason Stop Dose Admin Acetaminophen 650 mg 11/10/18 22:43 Tylenol PO Q4H PRN Pain MILD(1-3)/Fever >100.5/CORTES Enoxaparin Sodium 40 mg 11/11/18 10:00 11/13/18 10:40 Lovenox SUB-Q Not Given QDAY FLACA Ceftriaxone Sodium 2 gm in 100 mls @ 200 mls/hr 11/11/18 18:00 11/12/18 17:31 Rocephin/Ns 2 Gm/100 Ml IV 200 mls/hr Q24H FLACA Administration Protocol Metronidazole 500 mg in 100 mls @ 100 mls/hr 11/11/18 18:00 11/13/18 10:46 Flagyl 500 Mg/100 Ml IV 100 mls/hr Q8H FLACA Administration Protocol Fluconazole 200 mls @ 100 mls/hr 11/11/18 18:00 11/12/18 19:11 Diflucan IV 100 mls/hr Q24H FLACA Administration Protocol Dextrose/Sodium Chloride 1,000 mls @ 100 mls/hr 11/13/18 17:00 D5/0.45ns IV DIRECT FLACA Lorazepam 1 mg 11/12/18 10:00 11/12/18 21:09 Ativan IV 1 mg QHS PRN Administration Insomnia Morphine Sulfate 2 mg 11/10/18 22:43 11/12/18 05:58 Morphine IV 2 mg Q4H PRN Administration Pain, Moderate (4-6) Nicotine 21 mg 11/11/18 10:00 11/13/18 10:40 Habitrol TD Not Given QDAY FLACA Ondansetron HCl 4 mg 11/10/18 22:43 11/12/18 05:59 Zofran IV 4 mg Q4H PRN Administration Nausea And Vomiting Sodium Chloride 10 ml 11/11/18 10:00 11/13/18 05:49 Sodium Chloride Flush Syringe 10 Ml IV 10 ml BID FLACA Administration Sodium Chloride 10 ml 11/10/18 22:43 11/13/18 05:49 Sodium Chloride Flush Syringe 10 Ml IV 10 ml PRN PRN Administration LINE FLUSH Nutrition/Malnutrition Assess - Dietary Evaluation Nutrition/Malnutrition Findings: Nutrition Notes Start: 11/11/18 13:58 Freq: Status: Active Protocol: Document 11/13/18 12:48 SA (Rec: 11/13/18 12:53 SA [id number]) Co-Sign 11/13/18 12:48 LP Nutrition Notes Initial or Follow up Reassessment Other Pertinent Diagnosis Diverticular abscess with microperforation Current Diet Clear Liquid Diet Labs/Tests BUN: 7 Cr: 0.6 Glu: 63 Pertinent Medications Reviewed Height 5 ft 11 in Weight 95.8 kg [place] Body Weight (kg) 78.18 BMI 29.4 Weight Status Overweight Subjective/Other Information Patient states appetite is good but has not been able to eat. Pt states diet was advanced last night and he recieved his breakfast. Pt reports eating 100%. Burn Absent Trauma Absent #1 Nutrition Diagnosis Inadequate oral intake Diagnosis Progress(for reassessment Continues documentation) Is patient on ventilator? No Is Patient Ambulatory and/or Out of Bed Yes REE-([facility]-ambulatory/OOB) [ [id number] [id number]] Calculation Used for Recommendations [facility] Additional Notes Pro needs 0.8-1g/k-94g/ day Fluid needs 1ml/kcal Nutrition Intervention Change Diet Order: Diet advancement when medically feasible Add Supplement/Snack (indicate name/kcal Ensure Clear BID /protein ) Provides kCal: 480 Provides Protein (gm) 16 Goal #1 Advance diet to meet nutrient needs Anticipated Discharge Needs: Unable to identify at this time Follow-Up By: 11/15/18 Additional Comments F/U: diet advancement
[2018-11-13] MEDS: ROCEPHIN/NS 2 GM/100 ML 2 GM/100 ML BAG IV SCH (17:13)
[2018-11-13] MEDS: D5/0.45NS 1,000 ML IV SCH (17:17)
[2018-11-13] MEDS: DIFLUCAN 200 ML IV SCH (18:20)
[2018-11-13] MEDS: ATIVAN IV PRN (22:01)
[2018-11-14] MEDS: FLAGYL 500 MG/100 ML 500 MG/100 ML BAG IV SCH ×3 (04:59→20:32)
[2018-11-14 05:59] LABS: Basophils # (Auto) 0.2 K/mm3 (0.0-0.1); Basophils % (Auto) 1.2 % (0.0-1.8); Eosinophils # (Auto) 0.3 K/mm3 (0.0-0.4); Eosinophils % (Auto) 1.9 % (0.0-4.3); Hematocrit 40.7 % (35.5-45.6); Hemoglobin 13.7 gm/dl (11.8-15.2); Lymphocytes # (Auto) 2.3 K/mm3 (1.2-5.4); Lymphocytes % (Auto) 13.5 % (13.4-35.0); Mean Corpuscular HGB Conc 34 % (32-34); Mean Corpuscular Volume 86 fl (84-94); Monocytes # (Auto) 1.5 K/mm3 (0.0-0.8); Monocytes % (Auto) 8.7 % (0.0-7.3); Platelet Count 360 K/mm3 (140-440); Red Blood Count 4.72 M/mm3 (3.65-5.03); Red Cell Distribution Width 14.9 % (13.2-15.2)
--- NOTE | 2018-11-14 08:07 | Progress Note ---
Assessment and Plan Assessment and plan: Patient is a 33-year-old man history of diverticulosis comes emergency room with complaints of abdominal pain that started 5 days ago. Pain is in the lower quadrant which he describes as a sharp pain, intermittent in 4 hours, intensity 8/10, no radiation, better with pain medications given. He did place a subjective fever chills, no nausea vomiting. The patient was seen at [facility] today and was admitted, he left AMA because he stated he "flipped out" CTAP: Imaging. Contained Abscess, within the mesenteric fat, Perforated, Sigmoid Diverticlum, moderately large umbilical hernia Peritoneal irritation: continue abx Diverticular Abscess with Microperforation; bowel rest, abx Sepsis due to diverticulitis: ID is following, treat with abx Hypoglycemia: start 1/2nss with dextrose additive History Interval history: Patient was seen and examined. Follow-up on current diagnosis of Acute Diverticulitis. Overnight uneventful. Patient denies any chest pain, shortness breath, nausea/vomiting or severe headaches. Imaging, nursing note, chart, labs and old chart reviewed. Discussed with patient. Hospitalist Physical - Physical exam Narrative exam: Gen: WDWN, NAD, Awake, Alert, Orientated HEENT: NCAT, EOMI, PERRL, OP Clear Neck: supple, no adenopathy, no thyromegaly, no JVD CVS/Heart: RRR, normal S1S2, pulses present bilaterally Chest/Lungs: CTA B, Symmetrical chest expansion, good air entry bilaterally GI/Abdomen: soft, diffuse tenderness, good bowel sounds, no guarding or rebound /Bladder: no suprapubic tenderness, no CVA or paraspinal tenderness Extermity/Skin: no c/c/e, no obvious rash MSK: FROM x 4 Neuro: CN 2-12 grossly intact, no new focal deficits Psych: calm - Constitutional Vitals: Temp Pulse Resp BP Pulse Ox 98.0 F 74 18 116/55 97 11/14/18 04:42 11/14/18 04:42 11/14/18 04:42 11/14/18 04:42 11/14/18 04:42 Results - Labs CBC & Chem 7: 11/14/18 05:16 11/13/18 07:55 Labs: Laboratory Last Values WBC 16.8 K/mm3 (4.5-11.0) H 11/14/18 05:16 RBC 4.72 M/mm3 (3.65-5.03) 11/14/18 05:16 Hgb 13.7 gm/dl (11.8-15.2) 11/14/18 05:16 Hct 40.7 % (35.5-45.6) 11/14/18 05:16 MCV 86 fl (84-94) 11/14/18 05:16 MCH 29 pg (28-32) 11/14/18 05:16 MCHC 34 % (32-34) 11/14/18 05:16 RDW 14.9 % (13.2-15.2) 11/14/18 05:16 Plt Count 360 K/mm3 (140-440) 11/14/18 05:16 Lymph % (Auto) 13.5 % (13.4-35.0) 11/14/18 05:16 [place] % (Auto) 8.7 % (0.0-7.3) H 11/14/18 05:16 Eos % (Auto) 1.9 % (0.0-4.3) 11/14/18 05:16 Baso % (Auto) 1.2 % (0.0-1.8) 11/14/18 05:16 Lymph # 2.3 K/mm3 (1.2-5.4) 11/14/18 05:16 [place] # 1.5 K/mm3 (0.0-0.8) H 11/14/18 05:16 Eos # 0.3 K/mm3 (0.0-0.4) 11/14/18 05:16 Baso # 0.2 K/mm3 (0.0-0.1) H 11/14/18 05:16 Add Manual Diff Complete 11/10/18 15:04 Total Counted 100 11/10/18 15:04 Seg Neutrophils % 74.7 % (40.0-70.0) H 11/14/18 05:16 Seg Neuts % (Manual) 83.0 % (40.0-70.0) H 11/10/18 15:04 Band Neutrophils % 0 % 11/10/18 15:04 Lymphocytes % (Manual) 9.0 % (13.4-35.0) L 11/10/18 15:04 Reactive Lymphs % (Man) 0 % 11/10/18 15:04 Monocytes % (Manual) 8.0 % (0.0-7.3) H 11/10/18 15:04 Eosinophils % (Manual) 0 % (0.0-4.3) 11/10/18 15:04 Basophils % (Manual) 0 % (0.0-1.8) 11/10/18 15:04 Metamyelocytes % 0 % 11/10/18 15:04 Myelocytes % 0 % 11/10/18 15:04 Promyelocytes % 0 % 11/10/18 15:04 Blast Cells % 0 % 11/10/18 15:04 Nucleated RBC % Not Reportable 11/10/18 15:04 Seg Neutrophils # 12.5 K/mm3 (1.8-7.7) H 11/14/18 05:16 Seg Neutrophils # Man 18.7 K/mm3 (1.8-7.7) H 11/10/18 15:04 Band Neutrophils # 0.0 K/mm3 11/10/18 15:04 Lymphocytes # (Manual) 2.0 K/mm3 (1.2-5.4) 11/10/18 15:04 Abs React Lymphs (Man) 0.0 K/mm3 11/10/18 15:04 Monocytes # (Manual) 1.8 K/mm3 (0.0-0.8) H 11/10/18 15:04 Eosinophils # (Manual) 0.0 K/mm3 (0.0-0.4) 11/10/18 15:04 Basophils # (Manual) 0.0 K/mm3 (0.0-0.1) 11/10/18 15:04 Metamyelocytes # 0.0 K/mm3 11/10/18 15:04 Myelocytes # 0.0 K/mm3 11/10/18 15:04 Promyelocytes # 0.0 K/mm3 11/10/18 15:04 Blast Cells # 0.0 K/mm3 11/10/18 15:04 WBC Morphology Not Reportable 11/10/18 15:04 Hypersegmented Neuts Not Reportable 11/10/18 15:04 Hyposegmented Neuts Not Reportable 11/10/18 15:04 Hypogranular Neuts Not Reportable 11/10/18 15:04 Smudge Cells Not Reportable 11/10/18 15:04 Toxic Granulation Not Reportable 11/10/18 15:04 Toxic Vacuolation Not Reportable 11/10/18 15:04 Dohle Bodies Not Reportable 11/10/18 15:04 Pelger-Huet Anomaly Not Reportable 11/10/18 15:04 Manuel Rods Not Reportable 11/10/18 15:04 Platelet Estimate Not Reportable 11/10/18 15:04 Clumped Platelets Not Reportable 11/10/18 15:04 Plt Clumps, EDTA Not Reportable 11/10/18 15:04 Large Platelets Not Reportable 11/10/18 15:04 Giant Platelets Not Reportable 11/10/18 15:04 Platelet Satelliting Not Reportable 11/10/18 15:04 Plt Morphology Comment Not Reportable 11/10/18 15:04 RBC Morphology Normal 11/10/18 15:04 Dimorphic RBCs Not Reportable 11/10/18 15:04 Polychromasia Not Reportable 11/10/18 15:04 Hypochromasia Not Reportable 11/10/18 15:04 Poikilocytosis Not Reportable 11/10/18 15:04 Anisocytosis Not Reportable 11/10/18 15:04 Microcytosis Not Reportable 11/10/18 15:04 Macrocytosis Not Reportable 11/10/18 15:04 Spherocytes Not Reportable 11/10/18 15:04 Pappenheimer Bodies Not Reportable 11/10/18 15:04 Sickle Cells Not Reportable 11/10/18 15:04 Target Cells Not Reportable 11/10/18 15:04 Tear Drop Cells Not Reportable 11/10/18 15:04 Ovalocytes Not Reportable 11/10/18 15:04 Helmet Cells Not Reportable 11/10/18 15:04 Petit-[place] Bodies Not Reportable 11/10/18 15:04 [place] Rings Not Reportable 11/10/18 15:04 Inez Cells Not Reportable 11/10/18 15:04 Bite Cells Not Reportable 11/10/18 15:04 Crenated Cell Not Reportable 11/10/18 15:04 Elliptocytes Not Reportable 11/10/18 15:04 Acanthocytes (Spur) Not Reportable 11/10/18 15:04 Rouleaux Not Reportable 11/10/18 15:04 Hemoglobin C Crystals Not Reportable 11/10/18 15:04 Schistocytes Not Reportable 11/10/18 15:04 Malaria parasites Not Reportable 11/10/18 15:04 Hood Bodies Not Reportable 11/10/18 15:04 Hem Pathologist Commnt No 11/10/18 15:04 Sodium 138 mmol/L (137-145) 11/13/18 07:55 Potassium 3.8 mmol/L (3.6-5.0) 11/13/18 07:55 Chloride 100.6 mmol/L (98-107) 11/13/18 07:55 Carbon Dioxide 20 mmol/L (22-30) L 11/13/18 07:55 Anion Gap 21 mmol/L 11/13/18 07:55 BUN 7 mg/dL (9-20) L 11/13/18 07:55 Creatinine 0.6 mg/dL (0.8-1.5) L 11/13/18 07:55 Estimated GFR > 60 ml/min 11/13/18 07:55 BUN/Creatinine Ratio 12 % 11/13/18 07:55 Glucose 63 mg/dL (75-100) L 11/13/18 07:55 Lactic Acid 0.70 mmol/L (0.7-2.0) 11/10/18 19:50 Calcium 8.8 mg/dL (8.4-10.2) 11/13/18 07:55 Total Bilirubin 0.90 mg/dL (0.1-1.2) 11/10/18 15:04 Direct Bilirubin 0.4 mg/dL (0-0.2) H 11/10/18 15:04 Indirect Bilirubin 0.5 mg/dL 11/10/18 15:04 AST 16 units/L (5-40) 11/10/18 15:04 ALT 14 units/L (7-56) 11/10/18 15:04 Alkaline Phosphatase 78 units/L (35-129) 11/10/18 15:04 C-Reactive Protein 22.20 mg/dL (0.00-1.30) H 11/11/18 07:30 Total Protein 7.5 g/dL (6.3-8.2) 11/10/18 15:04 Albumin 3.5 g/dL (3.9-5) L 11/10/18 15:04 Albumin/Globulin Ratio 0.9 % 11/10/18 15:04 Lipase 47 units/L (13-60) 11/10/18 15:04 Urine Color Giselle (Yellow) 11/10/18 17:46 Urine Turbidity Clear (Clear) 11/10/18 17:46 Urine pH 6.0 (5.0-7.0) 11/10/18 17:46 Ur Specific [place] 1.043 (1.003-1.030) H 11/10/18 17:46 Urine Protein 100 mg/dl mg/dL (Negative) 11/10/18 17:46 Urine Glucose (UA) Neg mg/dL (Negative) 11/10/18 17:46 Urine Ketones 20 mg/dL (Negative) 11/10/18 17:46 Urine Blood Sm (Negative) 11/10/18 17:46 Urine Nitrite Neg (Negative) 11/10/18 17:46 Urine Bilirubin Sm (Negative) 11/10/18 17:46 Urine Ictotest Positive (Negative) 11/10/18 17:46 Urine Urobilinogen 4.0 mg/dL (<2.0) 11/10/18 17:46 Ur Leukocyte Esterase Neg (Negative) 11/10/18 17:46 Urine WBC (Auto) 8.0 /HPF (0.0-6.0) H 11/10/18 17:46 Urine RBC (Auto) 12.0 /HPF (0.0-6.0) 11/10/18 17:46 U Epithel Cells (Auto) 3.0 /HPF (0-13.0) 11/10/18 17:46 Urine Bacteria (Auto) 1+ /HPF (Negative) 11/10/18 17:46 Urine Mucus 3+ /HPF 11/10/18 17:46 Urine Yeast (Budding) 2+ /HPF 11/10/18 17:46 Urine Opiates Screen Presumptive positive 11/11/18 Unknown Urine Methadone Screen Presumptive negative 11/11/18 Unknown Ur Barbiturates Screen Presumptive negative 11/11/18 Unknown Ur Phencyclidine Scrn Presumptive negative 11/11/18 Unknown Ur Amphetamines Screen Presumptive negative 11/11/18 Unknown U Benzodiazepines Scrn Presumptive negative 11/11/18 Unknown Urine Cocaine Screen Presumptive negative 11/11/18 Unknown U Marijuana (THC) Screen Presumptive negative 11/11/18 Unknown Drugs of Abuse Note Disclamer 11/11/18 Unknown Active Medications - Current Medications Current Medications: Generic Name Dose Route Start Last Admin Trade Name Freq PRN Reason Stop Dose Admin Acetaminophen 650 mg 11/10/18 22:43 Tylenol PO Q4H PRN Pain MILD(1-3)/Fever >100.5/CORTES Enoxaparin Sodium 40 mg 11/11/18 10:00 11/13/18 10:40 Lovenox SUB-Q Not Given QDAY FLACA Ceftriaxone Sodium 2 gm in 100 mls @ 200 mls/hr 11/11/18 18:00 11/13/18 17:13 Rocephin/Ns 2 Gm/100 Ml IV 200 mls/hr Q24H FLACA Administration Protocol Metronidazole 500 mg in 100 mls @ 100 mls/hr 11/11/18 18:00 11/14/18 04:59 Flagyl 500 Mg/100 Ml IV 100 mls/hr Q8H FLACA Administration Protocol Fluconazole 200 mls @ 100 mls/hr 11/11/18 18:00 11/13/18 18:20 Diflucan IV 100 mls/hr Q24H FLACA Administration Protocol Dextrose/Sodium Chloride 1,000 mls @ 100 mls/hr 11/13/18 17:00 11/13/18 17:17 D5/0.45ns IV 100 mls/hr DIRECT FLACA Administration Lorazepam 1 mg 11/12/18 10:00 11/13/18 22:01 Ativan IV 1 mg QHS PRN Administration Insomnia Morphine Sulfate 2 mg 11/10/18 22:43 11/12/18 05:58 Morphine IV 2 mg Q4H PRN Administration Pain, Moderate (4-6) Nicotine 21 mg 11/11/18 10:00 11/13/18 10:40 Habitrol TD Not Given QDAY FLACA Ondansetron HCl 4 mg 11/10/18 22:43 11/12/18 05:59 Zofran IV 4 mg Q4H PRN Administration Nausea And Vomiting Sodium Chloride 10 ml 11/11/18 10:00 11/13/18 22:10 Sodium Chloride Flush Syringe 10 Ml IV 10 ml BID FLACA Administration Sodium Chloride 10 ml 11/10/18 22:43 11/13/18 05:49 Sodium Chloride Flush Syringe 10 Ml IV 10 ml PRN PRN Administration LINE FLUSH Nutrition/Malnutrition Assess - Dietary Evaluation Nutrition/Malnutrition Findings: Nutrition Notes Start: 11/11/18 13:58 Freq: Status: Active Protocol: Document 11/13/18 12:48 SA (Rec: 11/13/18 12:53 SA [id number]) Co-Sign 11/13/18 12:48 LP Nutrition Notes Initial or Follow up Reassessment Other Pertinent Diagnosis Diverticular abscess with microperforation Current Diet Clear Liquid Diet Labs/Tests BUN: 7 Cr: 0.6 Glu: 63 Pertinent Medications Reviewed Height 5 ft 11 in Weight 95.8 kg [place] Body Weight (kg) 78.18 BMI 29.4 Weight Status Overweight Subjective/Other Information Patient states appetite is good but has not been able to eat. Pt states diet was advanced last night and he recieved his breakfast. Pt reports eating 100%. Burn Absent Trauma Absent #1 Nutrition Diagnosis Inadequate oral intake Diagnosis Progress(for reassessment Continues documentation) Is patient on ventilator? No Is Patient Ambulatory and/or Out of Bed Yes REE-([facility]-ambulatory/OOB) [ [id number] [id number]] Calculation Used for Recommendations [facility] Additional Notes Pro needs 0.8-1g/k-94g/ day Fluid needs 1ml/kcal Nutrition Intervention Change Diet Order: Diet advancement when medically feasible Add Supplement/Snack (indicate name/kcal Ensure Clear BID /protein ) Provides kCal: 480 Provides Protein (gm) 16 Goal #1 Advance diet to meet nutrient needs Anticipated Discharge Needs: Unable to identify at this time Follow-Up By: 11/15/18 Additional Comments F/U: diet advancement
--- NOTE | 2018-11-14 08:34 | Progress Note ---
Assessment and Plan Pt feeling well without compl. leena cl liq diet Abd soft stable still elevated wbc advance to full liq diet f/u CT abd in am Objective Vital Signs - 12hr 11/14/18 11/14/18 01:00 04:42 Temperature 98.0 F Pulse Rate 74 Respiratory 17 18 Rate Blood Pressure 116/55 O2 Sat by Pulse 97 Oximetry - Labs 11/14/18 05:16 11/13/18 07:55 Diabetes panel 11/13/18 Range/Units 07:55 Sodium 138 (137-145) mmol/L Potassium 3.8 (3.6-5.0) mmol/L Chloride 100.6 (98-107) mmol/L Carbon Dioxide 20 L (22-30) mmol/L BUN 7 L (9-20) mg/dL Creatinine 0.6 L (0.8-1.5) mg/dL Glucose 63 L (75-100) mg/dL Calcium 8.8 (8.4-10.2) mg/dL Calcium panel 11/13/18 Range/Units 07:55 Calcium 8.8 (8.4-10.2) mg/dL Pituitary panel 11/13/18 Range/Units 07:55 Sodium 138 (137-145) mmol/L Potassium 3.8 (3.6-5.0) mmol/L Chloride 100.6 (98-107) mmol/L Carbon Dioxide 20 L (22-30) mmol/L BUN 7 L (9-20) mg/dL Creatinine 0.6 L (0.8-1.5) mg/dL Glucose 63 L (75-100) mg/dL Calcium 8.8 (8.4-10.2) mg/dL Adrenal panel 11/13/18 Range/Units 07:55 Sodium 138 (137-145) mmol/L Potassium 3.8 (3.6-5.0) mmol/L Chloride 100.6 (98-107) mmol/L Carbon Dioxide 20 L (22-30) mmol/L BUN 7 L (9-20) mg/dL Creatinine 0.6 L (0.8-1.5) mg/dL Glucose 63 L (75-100) mg/dL Calcium 8.8 (8.4-10.2) mg/dL
--- NOTE | 2018-11-14 11:12 | Progress Note ---
Assessment and Plan Cultures: Blood culture 11/10/2018 no growth to date. Assessment: 33 y/o male with history of obesity and diverticulosis; admitted on 11/10/2018 due to abdominal pain associated with chills and night sweats for 5 days: 1) Sepsis: Present on admission, Improved, Leukocytosis continuing. Etiology most likely ruptured diverticulitis with an abscess CRP- 22.20. 2) Ruptured diverticulitis with an abscess: CT abdomen showed an 4.7x4.5 cm gas/fluid collection in lower mesenteric fat. Recommendations: - follow-up blood cultures - continue ceftriaxone and flagyl, D4 - continue fluconazole IV, D4 -anticipate discharge on on Cipro 750mg po BID and Flagyl 500 po TID for total 10 days ending 11-20-18 -Repeat CT of abdomen scheduled for tomorrow [facility] M: [phone] O:[phone] Subjective Date of service: 11/14/18 Interval history: Patient seen and examined. Denied abdominal pain or SOB. No fevers. Agreeable to staying for CT in the AM. Objective - Exam Narrative Exam: General appearance: Alert in NAD, conversant Eyes: anicteric sclerae, moist conjunctivae; no lid-lag; PERRLA HENT: Atraumatic; oropharynx clear with moist mucous membranes and no mucosal ulcerations/no oral thrush; normal hard and soft palate. Normal external ears. Neck: Trachea midline; supple, no thyromegaly or lymphadenopathy Lungs: CTA, with normal respiratory effort and no intercostal retractions CV: RRR, no murmurs Abdomen: Soft, mild diffuse tenderness umbilical hernia Extremities: No peripheral edema or extremity lymphadenopathy Skin: Normal temperature, turgor and texture; no rash, ulcers or subcutaneous nodules Psych: Appropriate affect, alert and oriented to person, place and time. Neuro: alert and oriented x 3. Moving all extermities - Constitutional Vitals: Vital Signs Temp Pulse Resp BP Pulse Ox 98.0 F 74 18 116/55 97 11/14/18 04:42 11/14/18 04:42 11/14/18 04:42 11/14/18 04:42 11/14/18 08:49 Temperature -Last 24 Hours Temperature 98.0 F Temperature 98.3 F Temperature 98.6 F Temperature 98.3 F - Labs CBC & Chem 7: 11/14/18 05:16 11/13/18 07:55 Labs: Abnormal lab results 11/14/18 Range/Units 05:16 WBC 16.8 H (4.5-11.0) K/mm3 Holt % (Auto) 8.7 H (0.0-7.3) % Holt # 1.5 H (0.0-0.8) K/mm3 Baso # 0.2 H (0.0-0.1) K/mm3 Seg Neutrophils % 74.7 H (40.0-70.0) % Seg Neutrophils # 12.5 H (1.8-7.7) K/mm3
[2018-11-14] MEDS: LOVENOX SUB-Q SCH (12:11)
[2018-11-14] MEDS: HABITROL TD SCH (12:27)
[2018-11-14] MEDS: SODIUM CHLORIDE FLUSH SYRINGE 10 ML IV SCH ×2 (12:28→22:05)
[2018-11-14] MEDS: D5/0.45NS 1,000 ML IV SCH (14:00)
[2018-11-14] MEDS: ROCEPHIN/NS 2 GM/100 ML 2 GM/100 ML BAG IV SCH (17:23)
[2018-11-14] MEDS: DIFLUCAN 200 ML IV SCH (18:25)
[2018-11-14] MEDS: ATIVAN IV PRN (21:38)
[2018-11-15] MEDS: FLAGYL 500 MG/100 ML 500 MG/100 ML BAG IV SCH ×2 (02:52→09:27)
[2018-11-15] MEDS: HABITROL TD SCH (09:27)
[2018-11-15] MEDS: LOVENOX SUB-Q SCH (09:27)
[2018-11-15] MEDS: SODIUM CHLORIDE FLUSH SYRINGE 10 ML IV SCH (09:27)
--- NOTE | 2018-11-15 15:38 | Progress Note ---
Assessment and Plan Assessment and plan: Patient is a 33-year-old man history of diverticulosis comes emergency room with complaints of abdominal pain that started 5 days ago. Pain is in the lower quadrant which he describes as a sharp pain, intermittent in 4 hours, intensity 8/10, no radiation, better with pain medications given. He did place a subjective fever chills, no nausea vomiting. The patient was seen at [facility] today and was admitted, he left AMA because he stated he "flipped out" CTAP: Imaging. Contained Abscess, within the mesenteric fat, Perforated, Sigmoid Diverticlum, moderately large umbilical hernia Peritoneal irritation: continue abx Diverticular Abscess with Microperforation; bowel rest, abx Sepsis due to diverticulitis: ID is following, treat with abx Hypoglycemia: start 1/2nss with dextrose additive History Interval history: Patient was seen and examined. Follow-up on current diagnosis of Acute Diverticulitis. Overnight uneventful. Patient denies any chest pain, shortness breath, nausea/vomiting or severe headaches. Imaging, nursing note, chart, labs and old chart reviewed. Discussed with patient. Hospitalist Physical - Physical exam Narrative exam: Gen: WDWN, NAD, Awake, Alert, Orientated HEENT: NCAT, EOMI, PERRL, OP Clear Neck: supple, no adenopathy, no thyromegaly, no JVD CVS/Heart: RRR, normal S1S2, pulses present bilaterally Chest/Lungs: CTA B, Symmetrical chest expansion, good air entry bilaterally GI/Abdomen: soft, diffuse tenderness, good bowel sounds, no guarding or rebound /Bladder: no suprapubic tenderness, no CVA or paraspinal tenderness Extermity/Skin: no c/c/e, no obvious rash MSK: FROM x 4 Neuro: CN 2-12 grossly intact, no new focal deficits Psych: calm - Constitutional Vitals: Temp Pulse Resp BP Pulse Ox 100.4 F H 84 18 141/98 95 11/15/18 12:10 11/15/18 12:10 11/15/18 12:10 11/15/18 12:10 11/15/18 12:10 Results - Labs CBC & Chem 7: 11/14/18 05:16 11/13/18 07:55 Labs: Laboratory Last Values WBC 16.8 K/mm3 (4.5-11.0) H 11/14/18 05:16 RBC 4.72 M/mm3 (3.65-5.03) 11/14/18 05:16 Hgb 13.7 gm/dl (11.8-15.2) 11/14/18 05:16 Hct 40.7 % (35.5-45.6) 11/14/18 05:16 MCV 86 fl (84-94) 11/14/18 05:16 MCH 29 pg (28-32) 11/14/18 05:16 MCHC 34 % (32-34) 11/14/18 05:16 RDW 14.9 % (13.2-15.2) 11/14/18 05:16 Plt Count 360 K/mm3 (140-440) 11/14/18 05:16 Lymph % (Auto) 13.5 % (13.4-35.0) 11/14/18 05:16 [place] % (Auto) 8.7 % (0.0-7.3) H 11/14/18 05:16 Eos % (Auto) 1.9 % (0.0-4.3) 11/14/18 05:16 Baso % (Auto) 1.2 % (0.0-1.8) 11/14/18 05:16 Lymph # 2.3 K/mm3 (1.2-5.4) 11/14/18 05:16 [place] # 1.5 K/mm3 (0.0-0.8) H 11/14/18 05:16 Eos # 0.3 K/mm3 (0.0-0.4) 11/14/18 05:16 Baso # 0.2 K/mm3 (0.0-0.1) H 11/14/18 05:16 Add Manual Diff Complete 11/10/18 15:04 Total Counted 100 11/10/18 15:04 Seg Neutrophils % 74.7 % (40.0-70.0) H 11/14/18 05:16 Seg Neuts % (Manual) 83.0 % (40.0-70.0) H 11/10/18 15:04 Band Neutrophils % 0 % 11/10/18 15:04 Lymphocytes % (Manual) 9.0 % (13.4-35.0) L 11/10/18 15:04 Reactive Lymphs % (Man) 0 % 11/10/18 15:04 Monocytes % (Manual) 8.0 % (0.0-7.3) H 11/10/18 15:04 Eosinophils % (Manual) 0 % (0.0-4.3) 11/10/18 15:04 Basophils % (Manual) 0 % (0.0-1.8) 11/10/18 15:04 Metamyelocytes % 0 % 11/10/18 15:04 Myelocytes % 0 % 11/10/18 15:04 Promyelocytes % 0 % 11/10/18 15:04 Blast Cells % 0 % 11/10/18 15:04 Nucleated RBC % Not Reportable 11/10/18 15:04 Seg Neutrophils # 12.5 K/mm3 (1.8-7.7) H 11/14/18 05:16 Seg Neutrophils # Man 18.7 K/mm3 (1.8-7.7) H 11/10/18 15:04 Band Neutrophils # 0.0 K/mm3 11/10/18 15:04 Lymphocytes # (Manual) 2.0 K/mm3 (1.2-5.4) 11/10/18 15:04 Abs React Lymphs (Man) 0.0 K/mm3 11/10/18 15:04 Monocytes # (Manual) 1.8 K/mm3 (0.0-0.8) H 11/10/18 15:04 Eosinophils # (Manual) 0.0 K/mm3 (0.0-0.4) 11/10/18 15:04 Basophils # (Manual) 0.0 K/mm3 (0.0-0.1) 11/10/18 15:04 Metamyelocytes # 0.0 K/mm3 11/10/18 15:04 Myelocytes # 0.0 K/mm3 11/10/18 15:04 Promyelocytes # 0.0 K/mm3 11/10/18 15:04 Blast Cells # 0.0 K/mm3 11/10/18 15:04 WBC Morphology Not Reportable 11/10/18 15:04 Hypersegmented Neuts Not Reportable 11/10/18 15:04 Hyposegmented Neuts Not Reportable 11/10/18 15:04 Hypogranular Neuts Not Reportable 11/10/18 15:04 Smudge Cells Not Reportable 11/10/18 15:04 Toxic Granulation Not Reportable 11/10/18 15:04 Toxic Vacuolation Not Reportable 11/10/18 15:04 Dohle Bodies Not Reportable 11/10/18 15:04 Pelger-Huet Anomaly Not Reportable 11/10/18 15:04 Manuel Rods Not Reportable 11/10/18 15:04 Platelet Estimate Not Reportable 11/10/18 15:04 Clumped Platelets Not Reportable 11/10/18 15:04 Plt Clumps, EDTA Not Reportable 11/10/18 15:04 Large Platelets Not Reportable 11/10/18 15:04 Giant Platelets Not Reportable 11/10/18 15:04 Platelet Satelliting Not Reportable 11/10/18 15:04 Plt Morphology Comment Not Reportable 11/10/18 15:04 RBC Morphology Normal 11/10/18 15:04 Dimorphic RBCs Not Reportable 11/10/18 15:04 Polychromasia Not Reportable 11/10/18 15:04 Hypochromasia Not Reportable 11/10/18 15:04 Poikilocytosis Not Reportable 11/10/18 15:04 Anisocytosis Not Reportable 11/10/18 15:04 Microcytosis Not Reportable 11/10/18 15:04 Macrocytosis Not Reportable 11/10/18 15:04 Spherocytes Not Reportable 11/10/18 15:04 Pappenheimer Bodies Not Reportable 11/10/18 15:04 Sickle Cells Not Reportable 11/10/18 15:04 Target Cells Not Reportable 11/10/18 15:04 Tear Drop Cells Not Reportable 11/10/18 15:04 Ovalocytes Not Reportable 11/10/18 15:04 Helmet Cells Not Reportable 11/10/18 15:04 [place] Bodies Not Reportable 11/10/18 15:04 [place] Rings Not Reportable 11/10/18 15:04 Inez Cells Not Reportable 11/10/18 15:04 Bite Cells Not Reportable 11/10/18 15:04 Crenated Cell Not Reportable 11/10/18 15:04 Elliptocytes Not Reportable 11/10/18 15:04 Acanthocytes (Spur) Not Reportable 11/10/18 15:04 Rouleaux Not Reportable 11/10/18 15:04 Hemoglobin C Crystals Not Reportable 11/10/18 15:04 Schistocytes Not Reportable 11/10/18 15:04 Malaria parasites Not Reportable 11/10/18 15:04 Hood Bodies Not Reportable 11/10/18 15:04 Hem Pathologist Commnt No 11/10/18 15:04 Sodium 138 mmol/L (137-145) 11/13/18 07:55 Potassium 3.8 mmol/L (3.6-5.0) 11/13/18 07:55 Chloride 100.6 mmol/L (98-107) 11/13/18 07:55 Carbon Dioxide 20 mmol/L (22-30) L 11/13/18 07:55 Anion Gap 21 mmol/L 11/13/18 07:55 BUN 7 mg/dL (9-20) L 11/13/18 07:55 Creatinine 0.6 mg/dL (0.8-1.5) L 11/13/18 07:55 Estimated GFR > 60 ml/min 11/13/18 07:55 BUN/Creatinine Ratio 12 % 11/13/18 07:55 Glucose 63 mg/dL (75-100) L 11/13/18 07:55 POC Glucose 94 (70-105) 11/15/18 11:27 Lactic Acid 0.70 mmol/L (0.7-2.0) 11/10/18 19:50 Calcium 8.8 mg/dL (8.4-10.2) 11/13/18 07:55 Total Bilirubin 0.90 mg/dL (0.1-1.2) 11/10/18 15:04 Direct Bilirubin 0.4 mg/dL (0-0.2) H 11/10/18 15:04 Indirect Bilirubin 0.5 mg/dL 11/10/18 15:04 AST 16 units/L (5-40) 11/10/18 15:04 ALT 14 units/L (7-56) 11/10/18 15:04 Alkaline Phosphatase 78 units/L (35-129) 11/10/18 15:04 C-Reactive Protein 22.20 mg/dL (0.00-1.30) H 11/11/18 07:30 Total Protein 7.5 g/dL (6.3-8.2) 11/10/18 15:04 Albumin 3.5 g/dL (3.9-5) L 11/10/18 15:04 Albumin/Globulin Ratio 0.9 % 11/10/18 15:04 Lipase 47 units/L (13-60) 11/10/18 15:04 Urine Color Giselle (Yellow) 11/10/18 17:46 Urine Turbidity Clear (Clear) 11/10/18 17:46 Urine pH 6.0 (5.0-7.0) 11/10/18 17:46 Ur Specific [place] 1.043 (1.003-1.030) H 11/10/18 17:46 Urine Protein 100 mg/dl mg/dL (Negative) 11/10/18 17:46 Urine Glucose (UA) Neg mg/dL (Negative) 11/10/18 17:46 Urine Ketones 20 mg/dL (Negative) 11/10/18 17:46 Urine Blood Sm (Negative) 11/10/18 17:46 Urine Nitrite Neg (Negative) 11/10/18 17:46 Urine Bilirubin Sm (Negative) 11/10/18 17:46 Urine Ictotest Positive (Negative) 11/10/18 17:46 Urine Urobilinogen 4.0 mg/dL (<2.0) 11/10/18 17:46 Ur Leukocyte Esterase Neg (Negative) 11/10/18 17:46 Urine WBC (Auto) 8.0 /HPF (0.0-6.0) H 11/10/18 17:46 Urine RBC (Auto) 12.0 /HPF (0.0-6.0) 11/10/18 17:46 U Epithel Cells (Auto) 3.0 /HPF (0-13.0) 11/10/18 17:46 Urine Bacteria (Auto) 1+ /HPF (Negative) 11/10/18 17:46 Urine Mucus 3+ /HPF 11/10/18 17:46 Urine Yeast (Budding) 2+ /HPF 11/10/18 17:46 Urine Opiates Screen Presumptive positive 11/11/18 Unknown Urine Methadone Screen Presumptive negative 11/11/18 Unknown Ur Barbiturates Screen Presumptive negative 11/11/18 Unknown Ur Phencyclidine Scrn Presumptive negative 11/11/18 Unknown Ur Amphetamines Screen Presumptive negative 11/11/18 Unknown U Benzodiazepines Scrn Presumptive negative 11/11/18 Unknown Urine Cocaine Screen Presumptive negative 11/11/18 Unknown U Marijuana (THC) Screen Presumptive negative 11/11/18 Unknown Drugs of Abuse Note Disclamer 11/11/18 Unknown Active Medications - Current Medications Current Medications: Generic Name Dose Route Start Last Admin Trade Name Freq PRN Reason Stop Dose Admin Acetaminophen 650 mg 11/10/18 22:43 Tylenol PO Q4H PRN Pain MILD(1-3)/Fever >100.5/CORTES Enoxaparin Sodium 40 mg 11/11/18 10:00 11/15/18 09:27 Lovenox SUB-Q 40 mg QDAY FLACA Administration Ceftriaxone Sodium 2 gm in 100 mls @ 200 mls/hr 11/11/18 18:00 11/14/18 17:23 Rocephin/Ns 2 Gm/100 Ml IV 200 mls/hr Q24H FLACA Administration Protocol Metronidazole 500 mg in 100 mls @ 100 mls/hr 11/11/18 18:00 11/15/18 09:27 Flagyl 500 Mg/100 Ml IV 100 mls/hr Q8H FLACA Administration Protocol Fluconazole 200 mls @ 100 mls/hr 11/11/18 18:00 11/14/18 18:25 Diflucan IV 100 mls/hr Q24H FLACA Administration Protocol Dextrose/Sodium Chloride 1,000 mls @ 100 mls/hr 11/13/18 17:00 11/14/18 14:00 D5/0.45ns IV 100 mls/hr DIRECT FLACA Administration Lorazepam 1 mg 11/12/18 10:00 11/14/18 21:38 Ativan IV 1 mg QHS PRN Administration Insomnia Morphine Sulfate 2 mg 11/10/18 22:43 11/12/18 05:58 Morphine IV 2 mg Q4H PRN Administration Pain, Moderate (4-6) Nicotine 21 mg 11/11/18 10:00 11/15/18 09:27 Habitrol TD 21 mg QDAY FLACA Administration Ondansetron HCl 4 mg 11/10/18 22:43 11/12/18 05:59 Zofran IV 4 mg Q4H PRN Administration Nausea And Vomiting Sodium Chloride 10 ml 11/11/18 10:00 11/15/18 09:27 Sodium Chloride Flush Syringe 10 Ml IV 10 ml BID FLACA Administration Sodium Chloride 10 ml 11/10/18 22:43 11/13/18 05:49 Sodium Chloride Flush Syringe 10 Ml IV 10 ml PRN PRN Administration LINE FLUSH Nutrition/Malnutrition Assess - Dietary Evaluation Nutrition/Malnutrition Findings: Nutrition Notes Start: 11/11/18 13:58 Freq: Status: Active Protocol: Document 11/13/18 12:48 SA (Rec: 11/13/18 12:53 SA [id number]) Co-Sign 11/13/18 12:48 LP Nutrition Notes Initial or Follow up Reassessment Other Pertinent Diagnosis Diverticular abscess with microperforation Current Diet Clear Liquid Diet Labs/Tests BUN: 7 Cr: 0.6 Glu: 63 Pertinent Medications Reviewed Height 5 ft 11 in Weight 95.8 kg [place] Body Weight (kg) 78.18 BMI 29.4 Weight Status Overweight Subjective/Other Information Patient states appetite is good but has not been able to eat. Pt states diet was advanced last night and he recieved his breakfast. Pt reports eating 100%. Burn Absent Trauma Absent #1 Nutrition Diagnosis Inadequate oral intake Diagnosis Progress(for reassessment Continues documentation) Is patient on ventilator? No Is Patient Ambulatory and/or Out of Bed Yes REE-([place]-St. Jeor-ambulatory/OOB) [ 2496.169 [id number]] Calculation Used for Recommendations [place]-St Jeor Additional Notes Pro needs 0.8-1g/k-94g/ day Fluid needs 1ml/kcal Nutrition Intervention Change Diet Order: Diet advancement when medically feasible Add Supplement/Snack (indicate name/kcal Ensure Clear BID /protein ) Provides kCal: 480 Provides Protein (gm) 16 Goal #1 Advance diet to meet nutrient needs Anticipated Discharge Needs: Unable to identify at this time Follow-Up By: 11/15/18 Additional Comments F/U: diet advancement
--- NOTE | 2018-11-15 16:12 | Progress Note ---
Assessment and Plan Cultures: Blood culture 11/10/2018 no growth to date. Assessment: 33 y/o male with history of obesity and diverticulosis; admitted on 11/10/2018 due to abdominal pain associated with chills and night sweats for 5 days: 1) Sepsis: new fever. Still leukocytosis. Etiology most likely ruptured div erticulitis with an abscess. CRP- 22.20. 2) Ruptured diverticulitis with an abscess: CT abdomen showed an 4.7x4.5 cm gas/fluid collection in lower mesenteric fat. Recommendations: -follow-up blood cultures -stop ceftriaxone and flagyl, D5 -start zosyn -continue fluconazole IV, D5 -Repeat CT of abdomen scheduled for today Tracy Coleman MD Infectious Diseases [employer] [facility] M [phone] O [phone] Subjective Date of service: 11/15/18 Objective - Constitutional Vitals: Vital Signs Temp Pulse Resp BP Pulse Ox 100.4 F H 84 18 141/98 95 11/15/18 12:10 11/15/18 12:10 11/15/18 12:10 11/15/18 12:10 11/15/18 12:10 Temperature -Last 24 Hours Temperature 100.4 F Temperature 99.3 F Temperature 98.1 F Temperature 97.5 F Temperature 99.3 F - Labs CBC & Chem 7: 11/14/18 05:16 11/13/18 07:55
[2018-11-15] MEDS: DIFLUCAN 200 ML IV SCH (17:13)
[2018-11-15] MEDS: ZOSYN/NS 4.5GM/100ML 4.5 GM/100 ML VIAL IV SCH (19:09)
--- NOTE | 2018-11-15 20:46 | Cat Scan Report ---
PROCEDURE: CT ABDOMEN PELVIS W CON TECHNIQUE: Computerized axial tomography of the abdomen and pelvis was performed after the IV inject ion of iodinated nonionic contrast. CT DOSE LENGTH PRODUCT: 2889.6 mGycm HISTORY: f/u diverticular abscess COMPARISONS: November 10, 2018 . FINDINGS: Liver, spleen, pancreas and adrenal glands are within normal limits. Right kidney demonstrates a simp le cyst measuring about 2.4 cm involving the lower third. There is no obstructive uropathy. Urinary b ladder is partially filled with normal outlines. Aorta is of normal caliber. Minimal degree of free f luid is noted in the peritoneal cavity. There is no free air. Gallbladder is unremarkable. Small mireya l loops are within normal limits. Appendix is normal. An uncomplicated fat-containing umbilical herni a measuring 5 cm is again noted. There is interval increase in the size of fluid collection containin g an air-fluid level, located superior to the sigmoid colon, in the lower mesenteric fat causing sign ificant extrinsic impression of an adjacent small bowel loop which is partially wrapping the collecti on. Moderate degree of surrounding fat induration is again noted. IMPRESSION: Interval increase in the size of the fluid collection of the upper pelvis/lower abdomen region most l ikely representing a sigmoid diverticular abscess. There is no free intraperitoneal air. Minimal free fluid is noted. This document is electronically signed by Jasson Gomez MD., November 15 2018 08:44:15 PM ET
[2018-11-15] MEDS: ATIVAN IV PRN (21:30)
--- NOTE | 2018-11-15 21:37 | Progress Note ---
Assessment and Plan Pt clinically stable without compl. leena full liq diet Abd soft, non tender CT - increase in fluid collection most likely diverticular abscess interval increase in intra-abd abscess stable persistent elevated wbc IR eval for CT guided drainage and cults of fluid collection Selected Entries 11/14/18 11/15/18 04:42 19:31 Temperature 98.0 F 98.8 F Pulse Rate 74 76 Respiratory 18 19 Rate Blood Pressure 116/55 112/62 Laboratory Tests 11/13/18 11/14/18 07:55 05:16 WBC 17.0 H 16.8 H Hgb 13.7 Hct 40.7 Objective Vital Signs - 12hr 11/15/18 11/15/18 11/15/18 12:10 15:55 19:31 Temperature 100.4 F H 97.9 F 98.8 F Pulse Rate 84 83 76 Respiratory 18 20 19 Rate Blood Pressure 112/62 Blood Pressure 141/98 128/71 [Right] O2 Sat by Pulse 95 98 96 Oximetry - Labs 11/14/18 05:16 11/13/18 07:55
--- NOTE | 2018-11-15 23:07 | Event Note ---
Date: 11/15/[address] scans. Perforated sigmoid diverticulitis with fluid collection with request for drainage. The fluid collection is mid-abdomen and has increased in size rapidly since the initial CT concerning for continued leak. The location makes percutaneous drain placement technically difficult. There may not be a window. In addition, if there is a continued leak then drain placement may ultimately be unsuccessful. Plan for drainage on sunday. NPO after MN on sunday except sips of water with meds.
[2018-11-16] MEDS: ZOSYN/NS 4.5GM/100ML 4.5 GM/100 ML VIAL IV SCH ×3 (02:00→16:50)
[2018-11-16] MEDS: HABITROL TD SCH ×2 (08:09→10:00)
[2018-11-16] MEDS: LOVENOX SUB-Q SCH ×2 (08:09→10:00)
[2018-11-16] MEDS: SODIUM CHLORIDE FLUSH SYRINGE 10 ML IV SCH ×3 (10:00→21:27)
--- NOTE | 2018-11-16 15:23 | Progress Note ---
Assessment and Plan Assessment and plan: Patient is a 33-year-old man history of diverticulosis comes emergency room with complaints of abdominal pain that started 5 days ago. Pain is in the lower quadrant which he describes as a sharp pain, intermittent in 4 hours, intensity 8/10, no radiation, better with pain medications given. He did place a subjective fever chills, no nausea vomiting. The patient was seen at [facility] today and was admitted, he left AMA because he stated he "flipped out" CTAP: Imaging. Contained Abscess, within the mesenteric fat, Perforated, Sigmoid Diverticlum, moderately large umbilical hernia Peritoneal irritation: continue abx Diverticular Abscess with Microperforation; bowel rest, abx Sepsis due to diverticulitis: ID is following, treat with abx Hypoglycemia: start 1/2nss with dextrose additive Repeat CT abd/pelvis showed increase in abscess, going for IR drainage on Sunday History Interval history: Patient was seen and examined. Follow-up on current diagnosis of Acute Diverticulitis. Overnight uneventful. Patient denies any chest pain, shortness breath, nausea/vomiting or severe headaches. Imaging, nursing note, chart, labs and old chart reviewed. Discussed with patient. Hospitalist Physical - Physical exam Narrative exam: Gen: WDWN, NAD, Awake, Alert, Orientated HEENT: NCAT, EOMI, PERRL, OP Clear Neck: supple, no adenopathy, no thyromegaly, no JVD CVS/Heart: RRR, normal S1S2, pulses present bilaterally Chest/Lungs: CTA B, Symmetrical chest expansion, good air entry bilaterally GI/Abdomen: soft, diffuse tenderness, good bowel sounds, no guarding or rebound /Bladder: no suprapubic tenderness, no CVA or paraspinal tenderness Extermity/Skin: no c/c/e, no obvious rash MSK: FROM x 4 Neuro: CN 2-12 grossly intact, no new focal deficits Psych: calm - Constitutional Vitals: Temp Pulse Resp BP Pulse Ox 98.7 F 70 18 131/74 98 11/16/18 11:53 11/16/18 11:53 11/16/18 11:53 11/16/18 11:53 11/16/18 11:53 Results - Labs CBC & Chem 7: 11/14/18 05:16 11/13/18 07:55 Labs: Laboratory Last Values WBC 16.8 K/mm3 (4.5-11.0) H 11/14/18 05:16 RBC 4.72 M/mm3 (3.65-5.03) 11/14/18 05:16 Hgb 13.7 gm/dl (11.8-15.2) 11/14/18 05:16 Hct 40.7 % (35.5-45.6) 11/14/18 05:16 MCV 86 fl (84-94) 11/14/18 05:16 MCH 29 pg (28-32) 11/14/18 05:16 MCHC 34 % (32-34) 11/14/18 05:16 RDW 14.9 % (13.2-15.2) 11/14/18 05:16 Plt Count 360 K/mm3 (140-440) 11/14/18 05:16 Lymph % (Auto) 13.5 % (13.4-35.0) 11/14/18 05:16 [place] % (Auto) 8.7 % (0.0-7.3) H 11/14/18 05:16 Eos % (Auto) 1.9 % (0.0-4.3) 11/14/18 05:16 Baso % (Auto) 1.2 % (0.0-1.8) 11/14/18 05:16 Lymph # 2.3 K/mm3 (1.2-5.4) 11/14/18 05:16 [place] # 1.5 K/mm3 (0.0-0.8) H 11/14/18 05:16 Eos # 0.3 K/mm3 (0.0-0.4) 11/14/18 05:16 Baso # 0.2 K/mm3 (0.0-0.1) H 11/14/18 05:16 Add Manual Diff Complete 11/10/18 15:04 Total Counted 100 11/10/18 15:04 Seg Neutrophils % 74.7 % (40.0-70.0) H 11/14/18 05:16 Seg Neuts % (Manual) 83.0 % (40.0-70.0) H 11/10/18 15:04 Band Neutrophils % 0 % 11/10/18 15:04 Lymphocytes % (Manual) 9.0 % (13.4-35.0) L 11/10/18 15:04 Reactive Lymphs % (Man) 0 % 11/10/18 15:04 Monocytes % (Manual) 8.0 % (0.0-7.3) H 11/10/18 15:04 Eosinophils % (Manual) 0 % (0.0-4.3) 11/10/18 15:04 Basophils % (Manual) 0 % (0.0-1.8) 11/10/18 15:04 Metamyelocytes % 0 % 11/10/18 15:04 Myelocytes % 0 % 11/10/18 15:04 Promyelocytes % 0 % 11/10/18 15:04 Blast Cells % 0 % 11/10/18 15:04 Nucleated RBC % Not Reportable 11/10/18 15:04 Seg Neutrophils # 12.5 K/mm3 (1.8-7.7) H 11/14/18 05:16 Seg Neutrophils # Man 18.7 K/mm3 (1.8-7.7) H 11/10/18 15:04 Band Neutrophils # 0.0 K/mm3 11/10/18 15:04 Lymphocytes # (Manual) 2.0 K/mm3 (1.2-5.4) 11/10/18 15:04 Abs React Lymphs (Man) 0.0 K/mm3 11/10/18 15:04 Monocytes # (Manual) 1.8 K/mm3 (0.0-0.8) H 11/10/18 15:04 Eosinophils # (Manual) 0.0 K/mm3 (0.0-0.4) 11/10/18 15:04 Basophils # (Manual) 0.0 K/mm3 (0.0-0.1) 11/10/18 15:04 Metamyelocytes # 0.0 K/mm3 11/10/18 15:04 Myelocytes # 0.0 K/mm3 11/10/18 15:04 Promyelocytes # 0.0 K/mm3 11/10/18 15:04 Blast Cells # 0.0 K/mm3 11/10/18 15:04 WBC Morphology Not Reportable 11/10/18 15:04 Hypersegmented Neuts Not Reportable 11/10/18 15:04 Hyposegmented Neuts Not Reportable 11/10/18 15:04 Hypogranular Neuts Not Reportable 11/10/18 15:04 Smudge Cells Not Reportable 11/10/18 15:04 Toxic Granulation Not Reportable 11/10/18 15:04 Toxic Vacuolation Not Reportable 11/10/18 15:04 Dohle Bodies Not Reportable 11/10/18 15:04 Pelger-Huet Anomaly Not Reportable 11/10/18 15:04 Manuel Rods Not Reportable 11/10/18 15:04 Platelet Estimate Not Reportable 11/10/18 15:04 Clumped Platelets Not Reportable 11/10/18 15:04 Plt Clumps, EDTA Not Reportable 11/10/18 15:04 Large Platelets Not Reportable 11/10/18 15:04 Giant Platelets Not Reportable 11/10/18 15:04 Platelet Satelliting Not Reportable 11/10/18 15:04 Plt Morphology Comment Not Reportable 11/10/18 15:04 RBC Morphology Normal 11/10/18 15:04 Dimorphic RBCs Not Reportable 11/10/18 15:04 Polychromasia Not Reportable 11/10/18 15:04 Hypochromasia Not Reportable 11/10/18 15:04 Poikilocytosis Not Reportable 11/10/18 15:04 Anisocytosis Not Reportable 11/10/18 15:04 Microcytosis Not Reportable 11/10/18 15:04 Macrocytosis Not Reportable 11/10/18 15:04 Spherocytes Not Reportable 11/10/18 15:04 Pappenheimer Bodies Not Reportable 11/10/18 15:04 Sickle Cells Not Reportable 11/10/18 15:04 Target Cells Not Reportable 11/10/18 15:04 Tear Drop Cells Not Reportable 11/10/18 15:04 Ovalocytes Not Reportable 11/10/18 15:04 Helmet Cells Not Reportable 11/10/18 15:04 [place] Bodies Not Reportable 11/10/18 15:04 [place] Rings Not Reportable 11/10/18 15:04 Inez Cells Not Reportable 11/10/18 15:04 Bite Cells Not Reportable 11/10/18 15:04 Crenated Cell Not Reportable 11/10/18 15:04 Elliptocytes Not Reportable 11/10/18 15:04 Acanthocytes (Spur) Not Reportable 11/10/18 15:04 Rouleaux Not Reportable 11/10/18 15:04 Hemoglobin C Crystals Not Reportable 11/10/18 15:04 Schistocytes Not Reportable 11/10/18 15:04 Malaria parasites Not Reportable 11/10/18 15:04 Hood Bodies Not Reportable 11/10/18 15:04 Hem Pathologist Commnt No 11/10/18 15:04 Sodium 138 mmol/L (137-145) 11/13/18 07:55 Potassium 3.8 mmol/L (3.6-5.0) 11/13/18 07:55 Chloride 100.6 mmol/L (98-107) 11/13/18 07:55 Carbon Dioxide 20 mmol/L (22-30) L 11/13/18 07:55 Anion Gap 21 mmol/L 11/13/18 07:55 BUN 7 mg/dL (9-20) L 11/13/18 07:55 Creatinine 0.6 mg/dL (0.8-1.5) L 11/13/18 07:55 Estimated GFR > 60 ml/min 11/13/18 07:55 BUN/Creatinine Ratio 12 % 11/13/18 07:55 Glucose 63 mg/dL (75-100) L 11/13/18 07:55 POC Glucose 70 (70-105) 11/15/18 16:33 Lactic Acid 0.70 mmol/L (0.7-2.0) 11/10/18 19:50 Calcium 8.8 mg/dL (8.4-10.2) 11/13/18 07:55 Total Bilirubin 0.90 mg/dL (0.1-1.2) 11/10/18 15:04 Direct Bilirubin 0.4 mg/dL (0-0.2) H 11/10/18 15:04 Indirect Bilirubin 0.5 mg/dL 11/10/18 15:04 AST 16 units/L (5-40) 11/10/18 15:04 ALT 14 units/L (7-56) 11/10/18 15:04 Alkaline Phosphatase 78 units/L (35-129) 11/10/18 15:04 C-Reactive Protein 22.20 mg/dL (0.00-1.30) H 11/11/18 07:30 Total Protein 7.5 g/dL (6.3-8.2) 11/10/18 15:04 Albumin 3.5 g/dL (3.9-5) L 11/10/18 15:04 Albumin/Globulin Ratio 0.9 % 11/10/18 15:04 Lipase 47 units/L (13-60) 11/10/18 15:04 Urine Color Giselle (Yellow) 11/10/18 17:46 Urine Turbidity Clear (Clear) 11/10/18 17:46 Urine pH 6.0 (5.0-7.0) 11/10/18 17:46 Ur Specific [place] 1.043 (1.003-1.030) H 11/10/18 17:46 Urine Protein 100 mg/dl mg/dL (Negative) 11/10/18 17:46 Urine Glucose (UA) Neg mg/dL (Negative) 11/10/18 17:46 Urine Ketones 20 mg/dL (Negative) 11/10/18 17:46 Urine Blood Sm (Negative) 11/10/18 17:46 Urine Nitrite Neg (Negative) 11/10/18 17:46 Urine Bilirubin Sm (Negative) 11/10/18 17:46 Urine Ictotest Positive (Negative) 11/10/18 17:46 Urine Urobilinogen 4.0 mg/dL (<2.0) 11/10/18 17:46 Ur Leukocyte Esterase Neg (Negative) 11/10/18 17:46 Urine WBC (Auto) 8.0 /HPF (0.0-6.0) H 11/10/18 17:46 Urine RBC (Auto) 12.0 /HPF (0.0-6.0) 11/10/18 17:46 U Epithel Cells (Auto) 3.0 /HPF (0-13.0) 11/10/18 17:46 Urine Bacteria (Auto) 1+ /HPF (Negative) 11/10/18 17:46 Urine Mucus 3+ /HPF 11/10/18 17:46 Urine Yeast (Budding) 2+ /HPF 11/10/18 17:46 Urine Opiates Screen Presumptive positive 11/11/18 Unknown Urine Methadone Screen Presumptive negative 11/11/18 Unknown Ur Barbiturates Screen Presumptive negative 11/11/18 Unknown Ur Phencyclidine Scrn Presumptive negative 11/11/18 Unknown Ur Amphetamines Screen Presumptive negative 11/11/18 Unknown U Benzodiazepines Scrn Presumptive negative 11/11/18 Unknown Urine Cocaine Screen Presumptive negative 11/11/18 Unknown U Marijuana (THC) Screen Presumptive negative 11/11/18 Unknown Drugs of Abuse Note Disclamer 11/11/18 Unknown Active Medications - Current Medications Current Medications: Generic Name Dose Route Start Last Admin Trade Name Freq PRN Reason Stop Dose Admin Acetaminophen 650 mg 11/10/18 22:43 Tylenol PO Q4H PRN Pain MILD(1-3)/Fever >100.5/CORTES Enoxaparin Sodium 40 mg 11/11/18 10:00 11/16/18 10:00 Lovenox SUB-Q Not Given QDAY FLACA Fluconazole 200 mls @ 100 mls/hr 11/11/18 18:00 11/15/18 17:13 Diflucan IV 100 mls/hr Q24H FLACA Administration Protocol Dextrose/Sodium Chloride 1,000 mls @ 100 mls/hr 11/13/18 17:00 11/14/18 14:00 D5/0.45ns IV 100 mls/hr DIRECT FLACA Administration Piperacillin Sod/Tazobactam Sod 4.5 gm in 100 mls @ 200 mls/hr 11/15/18 18:00 11/16/18 02:00 Zosyn/Ns 4.5gm/100ml IV 200 mls/hr Q8H FLACA Administration Protocol Lorazepam 1 mg 11/12/18 10:00 11/15/18 21:30 Ativan IV 1 mg QHS PRN Administration Insomnia Morphine Sulfate 2 mg 11/10/18 22:43 11/12/18 05:58 Morphine IV 2 mg Q4H PRN Administration Pain, Moderate (4-6) Nicotine 21 mg 11/11/18 10:00 11/16/18 10:00 Habitrol TD Not Given QDAY FLACA Ondansetron HCl 4 mg 11/10/18 22:43 11/12/18 05:59 Zofran IV 4 mg Q4H PRN Administration Nausea And Vomiting Sodium Chloride 10 ml 11/11/18 10:00 11/16/18 10:00 Sodium Chloride Flush Syringe 10 Ml IV Not Given BID FLACA Sodium Chloride 10 ml 11/10/18 22:43 11/13/18 05:49 Sodium Chloride Flush Syringe 10 Ml IV 10 ml PRN PRN Administration LINE FLUSH Nutrition/Malnutrition Assess - Dietary Evaluation Nutrition/Malnutrition Findings: Nutrition Notes Start: 11/11/18 13:58 Freq: Status: Active Protocol: Document 11/15/18 15:35 RM (Rec: 11/15/18 15:45 RM [email or web address]) Nutrition Notes Initial or Follow up Reassessment Current Diagnosis Sepsis Other Pertinent Diagnosis Diverticular abscess with microperforation Current Diet Full liquid Labs/Tests Reviewed Pertinent Medications Reviewed Height 5 ft 11 in Weight 95 kg [place] Body Weight (kg) 78.18 BMI 29.2 Subjective/Other Information Pt asleep at time of visit. Recorded PO intake 100% X 2 meals. Percent of energy/protein needs met: 47%/32% Burn Absent Trauma Absent #1 Nutrition Diagnosis Inadequate oral intake As Evidenced by Signs and Symptoms pt drinking 100% of full liquid diet Diagnosis Progress(for reassessment Improved documentation) Is patient on ventilator? No Is Patient Ambulatory and/or Out of Bed Yes REE-([place]-St. Jeor-ambulatory/OOB) [ 2485.769 [id number]] Calculation Used for Recommendations [place]-St Jeor Additional Notes Protein Needs: 117-156g (1.5- 2g/kg IBW) Fluid Needs: 1 ml/kcal Nutrition Intervention Change Diet Order: Advance diet when medically able Add Supplement/Snack (indicate name/kcal Ensure Enlive 1 daily /protein ) Provides kCal: 350 Provides Protein (gm) 20 Goal #1 Advance diet to meet nutrient needs Anticipated Discharge Needs: Unable to identify at this time Follow-Up By: 11/20/18 Additional Comments Follow for PO and ONS intakes
[2018-11-16] MEDS: DIFLUCAN 200 ML IV SCH (17:23)
[2018-11-16] MEDS: ATIVAN IV PRN (21:26)
[2018-11-16] MEDS: MORPHINE IV PRN (23:37)
[2018-11-17] MEDS: ZOSYN/NS 4.5GM/100ML 4.5 GM/100 ML VIAL IV SCH ×3 (02:00→17:00)
[2018-11-17] MEDS: HABITROL TD SCH (09:34)
[2018-11-17] MEDS: LOVENOX SUB-Q SCH (09:40)
[2018-11-17] MEDS: SODIUM CHLORIDE FLUSH SYRINGE 10 ML IV SCH (09:46)
--- NOTE | 2018-11-17 12:02 | Progress Note ---
Assessment and Plan Pt feeling well without compl. Abd soft, non tender IR eval appreciated. for attempted CT guided drainage in am Selected Entries 11/17/18 04:23 Temperature 98.2 F Pulse Rate 63 Respiratory 18 Rate Blood Pressure 111/72 Objective Vital Signs - 12hr 11/17/18 11/17/18 00:07 04:23 Temperature 98.2 F Pulse Rate 63 Respiratory 18 18 Rate Blood Pressure 111/72 O2 Sat by Pulse 94 Oximetry - Labs 11/14/18 05:16 11/13/18 07:55
--- NOTE | 2018-11-17 13:49 | Progress Note ---
Assessment and Plan Assessment and plan: Patient is a 33-year-old man history of diverticulosis comes emergency room with complaints of abdominal pain that started 5 days ago. Pain is in the lower quadrant which he describes as a sharp pain, intermittent in 4 hours, intensity 8/10, no radiation, better with pain medications given. He did place a subjective fever chills, no nausea vomiting. The patient was seen at [facility] today and was admitted, he left AMA because he stated he "flipped out" CTAP: Imaging. Contained Abscess, within the mesenteric fat, Perforated, Sigmoid Diverticlum, moderately large umbilical hernia Peritoneal irritation: continue abx Diverticular Abscess with Microperforation; bowel rest, abx Sepsis due to diverticulitis: ID is following, treat with abx Hypoglycemia: start 1/2nss with dextrose additive Repeat CT abd/pelvis showed increase in abscess, going for IR drainage on Sunday History Interval history: Patient was seen and examined. Follow-up on current diagnosis of Acute Diverticulitis. Overnight uneventful. Patient denies any chest pain, shortness breath, nausea/vomiting or severe headaches. Imaging, nursing note, chart, labs and old chart reviewed. Discussed with patient. Hospitalist Physical - Physical exam Narrative exam: Gen: WDWN, NAD, Awake, Alert, Orientated HEENT: NCAT, EOMI, PERRL, OP Clear Neck: supple, no adenopathy, no thyromegaly, no JVD CVS/Heart: RRR, normal S1S2, pulses present bilaterally Chest/Lungs: CTA B, Symmetrical chest expansion, good air entry bilaterally GI/Abdomen: soft, diffuse tenderness, good bowel sounds, no guarding or rebound /Bladder: no suprapubic tenderness, no CVA or paraspinal tenderness Extermity/Skin: no c/c/e, no obvious rash MSK: FROM x 4 Neuro: CN 2-12 grossly intact, no new focal deficits Psych: calm - Constitutional Vitals: Temp Pulse Resp BP Pulse Ox 98.2 F 63 18 111/72 94 11/17/18 04:23 11/17/18 04:23 11/17/18 04:23 11/17/18 04:23 11/17/18 04:23 Results - Labs CBC & Chem 7: 11/14/18 05:16 11/13/18 07:55 Labs: Laboratory Last Values WBC 16.8 K/mm3 (4.5-11.0) H 11/14/18 05:16 RBC 4.72 M/mm3 (3.65-5.03) 11/14/18 05:16 Hgb 13.7 gm/dl (11.8-15.2) 11/14/18 05:16 Hct 40.7 % (35.5-45.6) 11/14/18 05:16 MCV 86 fl (84-94) 11/14/18 05:16 MCH 29 pg (28-32) 11/14/18 05:16 MCHC 34 % (32-34) 11/14/18 05:16 RDW 14.9 % (13.2-15.2) 11/14/18 05:16 Plt Count 360 K/mm3 (140-440) 11/14/18 05:16 Lymph % (Auto) 13.5 % (13.4-35.0) 11/14/18 05:16 [place] % (Auto) 8.7 % (0.0-7.3) H 11/14/18 05:16 Eos % (Auto) 1.9 % (0.0-4.3) 11/14/18 05:16 Baso % (Auto) 1.2 % (0.0-1.8) 11/14/18 05:16 Lymph # 2.3 K/mm3 (1.2-5.4) 11/14/18 05:16 [place] # 1.5 K/mm3 (0.0-0.8) H 11/14/18 05:16 Eos # 0.3 K/mm3 (0.0-0.4) 11/14/18 05:16 Baso # 0.2 K/mm3 (0.0-0.1) H 11/14/18 05:16 Add Manual Diff Complete 11/10/18 15:04 Total Counted 100 11/10/18 15:04 Seg Neutrophils % 74.7 % (40.0-70.0) H 11/14/18 05:16 Seg Neuts % (Manual) 83.0 % (40.0-70.0) H 11/10/18 15:04 Band Neutrophils % 0 % 11/10/18 15:04 Lymphocytes % (Manual) 9.0 % (13.4-35.0) L 11/10/18 15:04 Reactive Lymphs % (Man) 0 % 11/10/18 15:04 Monocytes % (Manual) 8.0 % (0.0-7.3) H 11/10/18 15:04 Eosinophils % (Manual) 0 % (0.0-4.3) 11/10/18 15:04 Basophils % (Manual) 0 % (0.0-1.8) 11/10/18 15:04 Metamyelocytes % 0 % 11/10/18 15:04 Myelocytes % 0 % 11/10/18 15:04 Promyelocytes % 0 % 11/10/18 15:04 Blast Cells % 0 % 11/10/18 15:04 Nucleated RBC % Not Reportable 11/10/18 15:04 Seg Neutrophils # 12.5 K/mm3 (1.8-7.7) H 11/14/18 05:16 Seg Neutrophils # Man 18.7 K/mm3 (1.8-7.7) H 11/10/18 15:04 Band Neutrophils # 0.0 K/mm3 11/10/18 15:04 Lymphocytes # (Manual) 2.0 K/mm3 (1.2-5.4) 11/10/18 15:04 Abs React Lymphs (Man) 0.0 K/mm3 11/10/18 15:04 Monocytes # (Manual) 1.8 K/mm3 (0.0-0.8) H 11/10/18 15:04 Eosinophils # (Manual) 0.0 K/mm3 (0.0-0.4) 11/10/18 15:04 Basophils # (Manual) 0.0 K/mm3 (0.0-0.1) 11/10/18 15:04 Metamyelocytes # 0.0 K/mm3 11/10/18 15:04 Myelocytes # 0.0 K/mm3 11/10/18 15:04 Promyelocytes # 0.0 K/mm3 11/10/18 15:04 Blast Cells # 0.0 K/mm3 11/10/18 15:04 WBC Morphology Not Reportable 11/10/18 15:04 Hypersegmented Neuts Not Reportable 11/10/18 15:04 Hyposegmented Neuts Not Reportable 11/10/18 15:04 Hypogranular Neuts Not Reportable 11/10/18 15:04 Smudge Cells Not Reportable 11/10/18 15:04 Toxic Granulation Not Reportable 11/10/18 15:04 Toxic Vacuolation Not Reportable 11/10/18 15:04 Dohle Bodies Not Reportable 11/10/18 15:04 Pelger-Huet Anomaly Not Reportable 11/10/18 15:04 Manuel Rods Not Reportable 11/10/18 15:04 Platelet Estimate Not Reportable 11/10/18 15:04 Clumped Platelets Not Reportable 11/10/18 15:04 Plt Clumps, EDTA Not Reportable 11/10/18 15:04 Large Platelets Not Reportable 11/10/18 15:04 Giant Platelets Not Reportable 11/10/18 15:04 Platelet Satelliting Not Reportable 11/10/18 15:04 Plt Morphology Comment Not Reportable 11/10/18 15:04 RBC Morphology Normal 11/10/18 15:04 Dimorphic RBCs Not Reportable 11/10/18 15:04 Polychromasia Not Reportable 11/10/18 15:04 Hypochromasia Not Reportable 11/10/18 15:04 Poikilocytosis Not Reportable 11/10/18 15:04 Anisocytosis Not Reportable 11/10/18 15:04 Microcytosis Not Reportable 11/10/18 15:04 Macrocytosis Not Reportable 11/10/18 15:04 Spherocytes Not Reportable 11/10/18 15:04 Pappenheimer Bodies Not Reportable 11/10/18 15:04 Sickle Cells Not Reportable 11/10/18 15:04 Target Cells Not Reportable 11/10/18 15:04 Tear Drop Cells Not Reportable 11/10/18 15:04 Ovalocytes Not Reportable 11/10/18 15:04 Helmet Cells Not Reportable 11/10/18 15:04 [place] Bodies Not Reportable 11/10/18 15:04 [place] Rings Not Reportable 11/10/18 15:04 Inez Cells Not Reportable 11/10/18 15:04 Bite Cells Not Reportable 11/10/18 15:04 Crenated Cell Not Reportable 11/10/18 15:04 Elliptocytes Not Reportable 11/10/18 15:04 Acanthocytes (Spur) Not Reportable 11/10/18 15:04 Rouleaux Not Reportable 11/10/18 15:04 Hemoglobin C Crystals Not Reportable 11/10/18 15:04 Schistocytes Not Reportable 11/10/18 15:04 Malaria parasites Not Reportable 11/10/18 15:04 Hood Bodies Not Reportable 11/10/18 15:04 Hem Pathologist Commnt No 11/10/18 15:04 Sodium 138 mmol/L (137-145) 11/13/18 07:55 Potassium 3.8 mmol/L (3.6-5.0) 11/13/18 07:55 Chloride 100.6 mmol/L (98-107) 11/13/18 07:55 Carbon Dioxide 20 mmol/L (22-30) L 11/13/18 07:55 Anion Gap 21 mmol/L 11/13/18 07:55 BUN 7 mg/dL (9-20) L 11/13/18 07:55 Creatinine 0.6 mg/dL (0.8-1.5) L 11/13/18 07:55 Estimated GFR > 60 ml/min 11/13/18 07:55 BUN/Creatinine Ratio 12 % 11/13/18 07:55 Glucose 63 mg/dL (75-100) L 11/13/18 07:55 POC Glucose 70 (70-105) 11/15/18 16:33 Lactic Acid 0.70 mmol/L (0.7-2.0) 11/10/18 19:50 Calcium 8.8 mg/dL (8.4-10.2) 11/13/18 07:55 Total Bilirubin 0.90 mg/dL (0.1-1.2) 11/10/18 15:04 Direct Bilirubin 0.4 mg/dL (0-0.2) H 11/10/18 15:04 Indirect Bilirubin 0.5 mg/dL 11/10/18 15:04 AST 16 units/L (5-40) 11/10/18 15:04 ALT 14 units/L (7-56) 11/10/18 15:04 Alkaline Phosphatase 78 units/L (35-129) 11/10/18 15:04 C-Reactive Protein 22.20 mg/dL (0.00-1.30) H 11/11/18 07:30 Total Protein 7.5 g/dL (6.3-8.2) 11/10/18 15:04 Albumin 3.5 g/dL (3.9-5) L 11/10/18 15:04 Albumin/Globulin Ratio 0.9 % 11/10/18 15:04 Lipase 47 units/L (13-60) 11/10/18 15:04 Urine Color Giselle (Yellow) 11/10/18 17:46 Urine Turbidity Clear (Clear) 11/10/18 17:46 Urine pH 6.0 (5.0-7.0) 11/10/18 17:46 Ur Specific [place] 1.043 (1.003-1.030) H 11/10/18 17:46 Urine Protein 100 mg/dl mg/dL (Negative) 11/10/18 17:46 Urine Glucose (UA) Neg mg/dL (Negative) 11/10/18 17:46 Urine Ketones 20 mg/dL (Negative) 11/10/18 17:46 Urine Blood Sm (Negative) 11/10/18 17:46 Urine Nitrite Neg (Negative) 11/10/18 17:46 Urine Bilirubin Sm (Negative) 11/10/18 17:46 Urine Ictotest Positive (Negative) 11/10/18 17:46 Urine Urobilinogen 4.0 mg/dL (<2.0) 11/10/18 17:46 Ur Leukocyte Esterase Neg (Negative) 11/10/18 17:46 Urine WBC (Auto) 8.0 /HPF (0.0-6.0) H 11/10/18 17:46 Urine RBC (Auto) 12.0 /HPF (0.0-6.0) 11/10/18 17:46 U Epithel Cells (Auto) 3.0 /HPF (0-13.0) 11/10/18 17:46 Urine Bacteria (Auto) 1+ /HPF (Negative) 11/10/18 17:46 Urine Mucus 3+ /HPF 11/10/18 17:46 Urine Yeast (Budding) 2+ /HPF 11/10/18 17:46 Urine Opiates Screen Presumptive positive 11/11/18 Unknown Urine Methadone Screen Presumptive negative 11/11/18 Unknown Ur Barbiturates Screen Presumptive negative 11/11/18 Unknown Ur Phencyclidine Scrn Presumptive negative 11/11/18 Unknown Ur Amphetamines Screen Presumptive negative 11/11/18 Unknown U Benzodiazepines Scrn Presumptive negative 11/11/18 Unknown Urine Cocaine Screen Presumptive negative 11/11/18 Unknown U Marijuana (THC) Screen Presumptive negative 11/11/18 Unknown Drugs of Abuse Note Disclamer 11/11/18 Unknown Active Medications - Current Medications Current Medications: Generic Name Dose Route Start Last Admin Trade Name Freq PRN Reason Stop Dose Admin Acetaminophen 650 mg 11/10/18 22:43 Tylenol PO Q4H PRN Pain MILD(1-3)/Fever >100.5/CORTES Enoxaparin Sodium 40 mg 11/11/18 10:00 11/17/18 09:40 Lovenox SUB-Q 40 mg QDAY FLACA Administration Fluconazole 200 mls @ 100 mls/hr 11/11/18 18:00 11/16/18 17:23 Diflucan IV 100 mls/hr Q24H FLACA Administration Protocol Dextrose/Sodium Chloride 1,000 mls @ 100 mls/hr 11/13/18 17:00 11/14/18 14:00 D5/0.45ns IV 100 mls/hr DIRECT FLACA Administration Piperacillin Sod/Tazobactam Sod 4.5 gm in 100 mls @ 200 mls/hr 11/15/18 18:00 11/17/18 09:40 Zosyn/Ns 4.5gm/100ml IV 200 mls/hr Q8H FLACA Administration Protocol Lorazepam 1 mg 11/12/18 10:00 11/16/18 21:26 Ativan IV 1 mg QHS PRN Administration Insomnia Morphine Sulfate 2 mg 11/10/18 22:43 11/16/18 23:37 Morphine IV 2 mg Q4H PRN Administration Pain, Moderate (4-6) Nicotine 21 mg 11/11/18 10:00 11/17/18 09:34 Habitrol TD 21 mg QDAY [facility] Administration Ondansetron HCl 4 mg 11/10/18 22:43 11/12/18 05:59 Zofran IV 4 mg Q4H PRN Administration Nausea And Vomiting Sodium Chloride 10 ml 11/11/18 10:00 11/17/18 09:46 Sodium Chloride Flush Syringe 10 Ml IV Not Given BID [facility] Sodium Chloride 10 ml 11/10/18 22:43 11/13/18 05:49 Sodium Chloride Flush Syringe 10 Ml IV 10 ml PRN PRN Administration LINE FLUSH Nutrition/Malnutrition Assess - Dietary Evaluation Nutrition/Malnutrition Findings: Nutrition Notes Start: 11/11/18 13:58 Freq: Status: Active Protocol: Document 11/15/18 15:35 RM (Rec: 11/15/18 15:45 RM [id number]) Nutrition Notes Initial or Follow up Reassessment Current Diagnosis Sepsis Other Pertinent Diagnosis Diverticular abscess with microperforation Current Diet Full liquid Labs/Tests Reviewed Pertinent Medications Reviewed Height 5 ft 11 in Weight 95 kg [place] Body Weight (kg) 78.18 BMI 29.2 Subjective/Other Information Pt asleep at time of visit. Recorded PO intake 100% X 2 meals. Percent of energy/protein needs met: 47%/32% Burn Absent Trauma Absent #1 Nutrition Diagnosis Inadequate oral intake As Evidenced by Signs and Symptoms pt drinking 100% of full liquid diet Diagnosis Progress(for reassessment Improved documentation) Is patient on ventilator? No Is Patient Ambulatory and/or Out of Bed Yes REE-(Moore-St. Jeor-ambulatory/OOB) [ [id number] [id number]] Calculation Used for Recommendations Moore-St Jeor Additional Notes Protein Needs: 117-156g (1.5- 2g/kg IBW) Fluid Needs: 1 ml/kcal Nutrition Intervention Change Diet Order: Advance diet when medically able Add Supplement/Snack (indicate name/kcal Ensure Enlive 1 daily /protein ) Provides kCal: 350 Provides Protein (gm) 20 Goal #1 Advance diet to meet nutrient needs Anticipated Discharge Needs: Unable to identify at this time Follow-Up By: 11/20/18 Additional Comments Follow for PO and ONS intakes
[2018-11-17] MEDS: DIFLUCAN 200 ML IV SCH (17:54)
[2018-11-17] MEDS: ATIVAN IV PRN (21:31)
[2018-11-18] MEDS: ZOSYN/NS 4.5GM/100ML 4.5 GM/100 ML VIAL IV SCH ×3 (02:16→18:27)
[2018-11-18] MEDS: SODIUM CHLORIDE FLUSH SYRINGE 10 ML IV SCH ×3 (02:21→22:26)
[2018-11-18 05:36] LABS: Hematocrit 43.3 % (35.5-45.6); Hemoglobin 14.2 gm/dl (11.8-15.2); Mean Corpuscular HGB Conc 33 % (32-34); Mean Corpuscular Volume 86 fl (84-94); Mean Platelet Volume 9.5 fl (6-12); Platelet Count 427 K/mm3 (140-440); Red Blood Count 5.01 M/mm3 (3.65-5.03); Red Cell Distribution Width 14.8 % (13.2-15.2)
[2018-11-18 06:07] LABS: RBC Morphology Normal; Total Cells Counted 100
[2018-11-18] MEDS: D5/0.45NS 1,000 ML IV SCH ×2 (06:12→21:36)
[2018-11-18] MEDS ORDERED: VERSED IV NR (08:43)
[2018-11-18] MEDS ORDERED: NACL 0.9% 500 ML 0 ML ONE (08:48)
[2018-11-18 09:18] LABS: INR 0.97 (0.87-1.13)
[2018-11-18] MEDS: LOVENOX SUB-Q SCH (10:27)
--- NOTE | 2018-11-18 12:04 | Progress Note ---
Assessment and Plan Cultures: Blood culture 11/10/2018 no growth to date. Assessment: 33 y/o male with history of obesity and diverticulosis; admitted on 11/10/2018 due to abdominal pain associated with chills and night sweats for 5 days: 1) Sepsis: new fever. Still leukocytosis. Etiology most likely ruptured di verticulitis with an abscess. CRP- 22.20. 2) Ruptured diverticulitis with an abscess: CT abdomen showed an 4.7x4.5 cm gas/fluid collection in lower mesenteric fat. Repeat CT shows interval increase in the size of the fluid collection of the upper pelvis/lower abdomen region most likely representing a sigmoid diverticular abscess. CT guided drainage today. Will f/u OR cultures from CT guided drainage. Recommendations: -follow-up blood cultures -folllow up OR cultures from CT guided drainage - continue zosyn - discontinue fluconazole [facility] M: [phone] O:[phone] Subjective Date of service: 11/18/18 Objective - Constitutional Vitals: Vital Signs Temp Pulse Resp BP Pulse Ox 97.9 F 57 L 16 107/54 97 11/18/18 04:46 11/18/18 04:45 11/18/18 04:45 11/18/18 04:45 11/18/18 04:45 Temperature -Last 24 Hours Temperature 97.9 F Temperature 98.5 F Temperature 97.4 F - Labs CBC & Chem 7: 11/18/18 04:38 11/13/18 07:55 Labs: Abnormal lab results 11/17/18 11/18/18 Range/Units 17:15 04:38 WBC 15.9 H (4.5-11.0) K/mm3 Monocytes % (Manual) 8.0 H (0.0-7.3) % Basophils % (Manual) 2.0 H (0.0-1.8) % Seg Neutrophils # Man 10.2 H (1.8-7.7) K/mm3 Monocytes # (Manual) 1.3 H (0.0-0.8) K/mm3 Eosinophils # (Manual) 0.5 H (0.0-0.4) K/mm3 Basophils # (Manual) 0.3 H (0.0-0.1) K/mm3 POC Glucose 54 L (70-105)
[2018-11-18] MEDS ORDERED: VERSED IV ONE ×2 (12:54→14:35)
[2018-11-18] MEDS ORDERED: SUBLIMAZE ONE ×3 (12:55→14:35)
--- NOTE | 2018-11-18 12:59 | Progress Note ---
Assessment and Plan Assessment and plan: Patient is a 33-year-old man history of diverticulosis comes emergency room with complaints of abdominal pain that started 5 days ago. Pain is in the lower quadrant which he describes as a sharp pain, intermittent in 4 hours, intensity 8/10, no radiation, better with pain medications given. He did place a subjective fever chills, no nausea vomiting. The patient was seen at [facility] today and was admitted, he left AMA because he stated he "flipped out" * CTAP: Imaging. Contained Abscess, within the mesenteric fat, Perforated, Sigmoid Diverticlum, moderately large umbilical hernia Diverticular Abscess with Microperforation; bowel rest, abx Sepsis due to diverticulitis: ID is following, treat with abx Peritoneal irritation: continue abx Hypoglycemia: start 1/2nss with dextrose additive Repeat CT abd/pelvis showed increase in abscess, going for IR drainage today History Interval history: Patient was seen and examined. Follow-up on current diagnosis of Acute Diverticulitis. Overnight uneventful. Patient denies any chest pain, shortness breath, nausea/vomiting or severe headaches. Imaging, nursing note, chart, labs and old chart reviewed. Discussed with patient. Hospitalist Physical - Physical exam Narrative exam: Gen: WDWN, NAD, Awake, Alert, Orientated HEENT: NCAT, EOMI, PERRL, OP Clear Neck: supple, no adenopathy, no thyromegaly, no JVD CVS/Heart: RRR, normal S1S2, pulses present bilaterally Chest/Lungs: CTA B, Symmetrical chest expansion, good air entry bilaterally GI/Abdomen: soft, diffuse tenderness, good bowel sounds, no guarding or rebound /Bladder: no suprapubic tenderness, no CVA or paraspinal tenderness Extermity/Skin: no c/c/e, no obvious rash MSK: FROM x 4 Neuro: CN 2-12 grossly intact, no new focal deficits Psych: calm - Constitutional Vitals: Temp Pulse Resp BP Pulse Ox 98 F 60 18 114/62 97 11/18/18 12:00 11/18/18 12:00 11/18/18 12:00 11/18/18 12:00 11/18/18 12:00 Results - Labs CBC & Chem 7: 11/18/18 04:38 11/13/18 07:55 Labs: Laboratory Last Values WBC 15.9 K/mm3 (4.5-11.0) H 11/18/18 04:38 RBC 5.01 M/mm3 (3.65-5.03) 11/18/18 04:38 Hgb 14.2 gm/dl (11.8-15.2) 11/18/18 04:38 Hct 43.3 % (35.5-45.6) 11/18/18 04:38 MCV 86 fl (84-94) 11/18/18 04:38 MCH 28 pg (28-32) 11/18/18 04:38 MCHC 33 % (32-34) 11/18/18 04:38 RDW 14.8 % (13.2-15.2) 11/18/18 04:38 Plt Count 427 K/mm3 (140-440) 11/18/18 04:38 Lymph % (Auto) 13.5 % (13.4-35.0) 11/14/18 05:16 [place] % (Auto) 8.7 % (0.0-7.3) H 11/14/18 05:16 Eos % (Auto) 1.9 % (0.0-4.3) 11/14/18 05:16 Baso % (Auto) 1.2 % (0.0-1.8) 11/14/18 05:16 Lymph # 2.3 K/mm3 (1.2-5.4) 11/14/18 05:16 [place] # 1.5 K/mm3 (0.0-0.8) H 11/14/18 05:16 Eos # 0.3 K/mm3 (0.0-0.4) 11/14/18 05:16 Baso # 0.2 K/mm3 (0.0-0.1) H 11/14/18 05:16 Add Manual Diff Complete 11/18/18 04:38 Total Counted 100 11/18/18 04:38 Seg Neutrophils % 74.7 % (40.0-70.0) H 11/14/18 05:16 Seg Neuts % (Manual) 64.0 % (40.0-70.0) 11/18/18 04:38 Band Neutrophils % 0 % 11/18/18 04:38 Lymphocytes % (Manual) 23.0 % (13.4-35.0) 11/18/18 04:38 Reactive Lymphs % (Man) 0 % 11/18/18 04:38 Monocytes % (Manual) 8.0 % (0.0-7.3) H 11/18/18 04:38 Eosinophils % (Manual) 3.0 % (0.0-4.3) 11/18/18 04:38 Basophils % (Manual) 2.0 % (0.0-1.8) H 11/18/18 04:38 Metamyelocytes % 0 % 11/18/18 04:38 Myelocytes % 0 % 11/18/18 04:38 Promyelocytes % 0 % 11/18/18 04:38 Blast Cells % 0 % 11/18/18 04:38 Nucleated RBC % Not Reportable 11/18/18 04:38 Seg Neutrophils # 12.5 K/mm3 (1.8-7.7) H 11/14/18 05:16 Seg Neutrophils # Man 10.2 K/mm3 (1.8-7.7) H 11/18/18 04:38 Band Neutrophils # 0.0 K/mm3 11/18/18 04:38 Lymphocytes # (Manual) 3.7 K/mm3 (1.2-5.4) 11/18/18 04:38 Abs React Lymphs (Man) 0.0 K/mm3 11/18/18 04:38 Monocytes # (Manual) 1.3 K/mm3 (0.0-0.8) H 11/18/18 04:38 Eosinophils # (Manual) 0.5 K/mm3 (0.0-0.4) H 11/18/18 04:38 Basophils # (Manual) 0.3 K/mm3 (0.0-0.1) H 11/18/18 04:38 Metamyelocytes # 0.0 K/mm3 11/18/18 04:38 Myelocytes # 0.0 K/mm3 11/18/18 04:38 Promyelocytes # 0.0 K/mm3 11/18/18 04:38 Blast Cells # 0.0 K/mm3 11/18/18 04:38 WBC Morphology Not Reportable 11/18/18 04:38 Hypersegmented Neuts Not Reportable 11/18/18 04:38 Hyposegmented Neuts Not Reportable 11/18/18 04:38 Hypogranular Neuts Not Reportable 11/18/18 04:38 Smudge Cells Not Reportable 11/18/18 04:38 Toxic Granulation Not Reportable 11/18/18 04:38 Toxic Vacuolation Not Reportable 11/18/18 04:38 Dohle Bodies Not Reportable 11/18/18 04:38 Pelger-Huet Anomaly Not Reportable 11/18/18 04:38 Manuel Rods Not Reportable 11/18/18 04:38 Platelet Estimate Not Reportable 11/18/18 04:38 Clumped Platelets Not Reportable 11/18/18 04:38 Plt Clumps, EDTA Not Reportable 11/18/18 04:38 Large Platelets Not Reportable 11/18/18 04:38 Giant Platelets Not Reportable 11/18/18 04:38 Platelet Satelliting Not Reportable 11/18/18 04:38 Plt Morphology Comment Not Reportable 11/18/18 04:38 RBC Morphology Normal 11/18/18 04:38 Dimorphic RBCs Not Reportable 11/18/18 04:38 Polychromasia Not Reportable 11/18/18 04:38 Hypochromasia Not Reportable 11/18/18 04:38 Poikilocytosis Not Reportable 11/18/18 04:38 Anisocytosis Not Reportable 11/18/18 04:38 Microcytosis Not Reportable 11/18/18 04:38 Macrocytosis Not Reportable 11/18/18 04:38 Spherocytes Not Reportable 11/18/18 04:38 Pappenheimer Bodies Not Reportable 11/18/18 04:38 Sickle Cells Not Reportable 11/18/18 04:38 Target Cells Not Reportable 11/18/18 04:38 Tear Drop Cells Not Reportable 11/18/18 04:38 Ovalocytes Not Reportable 11/18/18 04:38 Helmet Cells Not Reportable 11/18/18 04:38 [place] Bodies Not Reportable 11/18/18 04:38 Wells Rings Not Reportable 11/18/18 04:38 Inez Cells Not Reportable 11/18/18 04:38 Bite Cells Not Reportable 11/18/18 04:38 Crenated Cell Not Reportable 11/18/18 04:38 Elliptocytes Not Reportable 11/18/18 04:38 Acanthocytes (Spur) Not Reportable 11/18/18 04:38 Rouleaux Not Reportable 11/18/18 04:38 Hemoglobin C Crystals Not Reportable 11/18/18 04:38 Schistocytes Not Reportable 11/18/18 04:38 Malaria parasites Not Reportable 11/18/18 04:38 Hood Bodies Not Reportable 11/18/18 04:38 Hem Pathologist Commnt No 11/18/18 04:38 PT 13.5 Sec. (12.2-14.9) 11/18/18 08:36 INR 0.97 (0.87-1.13) 11/18/18 08:36 APTT 27.0 Sec. (24.2-36.6) 11/18/18 08:36 Sodium 138 mmol/L (137-145) 11/13/18 07:55 Potassium 3.8 mmol/L (3.6-5.0) 11/13/18 07:55 Chloride 100.6 mmol/L (98-107) 11/13/18 07:55 Carbon Dioxide 20 mmol/L (22-30) L 11/13/18 07:55 Anion Gap 21 mmol/L 11/13/18 07:55 BUN 7 mg/dL (9-20) L 11/13/18 07:55 Creatinine 0.6 mg/dL (0.8-1.5) L 11/13/18 07:55 Estimated GFR > 60 ml/min 11/13/18 07:55 BUN/Creatinine Ratio 12 % 11/13/18 07:55 Glucose 63 mg/dL (75-100) L 11/13/18 07:55 POC Glucose 54 (70-105) L 11/17/18 17:15 Lactic Acid 0.70 mmol/L (0.7-2.0) 11/10/18 19:50 Calcium 8.8 mg/dL (8.4-10.2) 11/13/18 07:55 Total Bilirubin 0.90 mg/dL (0.1-1.2) 11/10/18 15:04 Direct Bilirubin 0.4 mg/dL (0-0.2) H 11/10/18 15:04 Indirect Bilirubin 0.5 mg/dL 11/10/18 15:04 AST 16 units/L (5-40) 11/10/18 15:04 ALT 14 units/L (7-56) 11/10/18 15:04 Alkaline Phosphatase 78 units/L (35-129) 11/10/18 15:04 C-Reactive Protein 22.20 mg/dL (0.00-1.30) H 11/11/18 07:30 Total Protein 7.5 g/dL (6.3-8.2) 11/10/18 15:04 Albumin 3.5 g/dL (3.9-5) L 11/10/18 15:04 Albumin/Globulin Ratio 0.9 % 11/10/18 15:04 Lipase 47 units/L (13-60) 11/10/18 15:04 Urine Color Giselle (Yellow) 11/10/18 17:46 Urine Turbidity Clear (Clear) 11/10/18 17:46 Urine pH 6.0 (5.0-7.0) 11/10/18 17:46 Ur Specific [place] 1.043 (1.003-1.030) H 11/10/18 17:46 Urine Protein 100 mg/dl mg/dL (Negative) 11/10/18 17:46 Urine Glucose (UA) Neg mg/dL (Negative) 11/10/18 17:46 Urine Ketones 20 mg/dL (Negative) 11/10/18 17:46 Urine Blood Sm (Negative) 11/10/18 17:46 Urine Nitrite Neg (Negative) 11/10/18 17:46 Urine Bilirubin Sm (Negative) 11/10/18 17:46 Urine Ictotest Positive (Negative) 11/10/18 17:46 Urine Urobilinogen 4.0 mg/dL (<2.0) 11/10/18 17:46 Ur Leukocyte Esterase Neg (Negative) 11/10/18 17:46 Urine WBC (Auto) 8.0 /HPF (0.0-6.0) H 11/10/18 17:46 Urine RBC (Auto) 12.0 /HPF (0.0-6.0) 11/10/18 17:46 U Epithel Cells (Auto) 3.0 /HPF (0-13.0) 11/10/18 17:46 Urine Bacteria (Auto) 1+ /HPF (Negative) 11/10/18 17:46 Urine Mucus 3+ /HPF 11/10/18 17:46 Urine Yeast (Budding) 2+ /HPF 11/10/18 17:46 Urine Opiates Screen Presumptive positive 11/11/18 Unknown Urine Methadone Screen Presumptive negative 11/11/18 Unknown Ur Barbiturates Screen Presumptive negative 11/11/18 Unknown Ur Phencyclidine Scrn Presumptive negative 11/11/18 Unknown Ur Amphetamines Screen Presumptive negative 11/11/18 Unknown U Benzodiazepines Scrn Presumptive negative 11/11/18 Unknown Urine Cocaine Screen Presumptive negative 11/11/18 Unknown U Marijuana (THC) Screen Presumptive negative 11/11/18 Unknown Drugs of Abuse Note Disclamer 11/11/18 Unknown Active Medications - Current Medications Current Medications: Generic Name Dose Route Start Last Admin Trade Name Freq PRN Reason Stop Dose Admin Acetaminophen 650 mg 11/10/18 22:43 Tylenol PO Q4H PRN Pain MILD(1-3)/Fever >100.5/CORTES Enoxaparin Sodium 40 mg 11/11/18 10:00 11/18/18 10:27 Lovenox SUB-Q Not Given QDAY FLACA Fentanyl 100 mcg 11/18/18 08:43 Sublimaze IV 11/18/18 16:00 ONCE NR Dextrose/Sodium Chloride 1,000 mls @ 100 mls/hr 11/13/18 17:00 11/18/18 06:12 D5/0.45ns IV 100 mls/hr DIRECT FLACA Administration Piperacillin Sod/Tazobactam Sod 4.5 gm in 100 mls @ 200 mls/hr 11/15/18 18:00 11/18/18 02:16 Zosyn/Ns 4.5gm/100ml IV 200 mls/hr Q8H FLACA Administration Protocol Lorazepam 1 mg 11/12/18 10:00 11/17/18 21:31 Ativan IV 1 mg QHS PRN Administration Insomnia Midazolam HCl 5 mg 11/18/18 08:43 Versed IV 11/18/18 16:00 ONCE NR Morphine Sulfate 2 mg 11/10/18 22:43 11/16/18 23:37 Morphine IV 2 mg Q4H PRN Administration Pain, Moderate (4-6) Nicotine 21 mg 11/11/18 10:00 11/17/18 09:34 Habitrol TD 21 mg QDAY FALCA Administration Ondansetron HCl 4 mg 11/10/18 22:43 11/12/18 05:59 Zofran IV 4 mg Q4H PRN Administration Nausea And Vomiting Sodium Chloride 10 ml 11/11/18 10:00 11/18/18 02:21 Sodium Chloride Flush Syringe 10 Ml IV 10 ml BID FLACA Administration Sodium Chloride 10 ml 11/10/18 22:43 11/13/18 05:49 Sodium Chloride Flush Syringe 10 Ml IV 10 ml PRN PRN Administration LINE FLUSH Nutrition/Malnutrition Assess - Dietary Evaluation Nutrition/Malnutrition Findings: Nutrition Notes Start: 11/11/18 13:58 Freq: Status: Active Protocol: Document 11/15/18 15:35 RM (Rec: 11/15/18 15:45 RM [id number]) Nutrition Notes Initial or Follow up Reassessment Current Diagnosis Sepsis Other Pertinent Diagnosis Diverticular abscess with microperforation Current Diet Full liquid Labs/Tests Reviewed Pertinent Medications Reviewed Height 5 ft 11 in Weight 95 kg [place] Body Weight (kg) 78.18 BMI 29.2 Subjective/Other Information Pt asleep at time of visit. Recorded PO intake 100% X 2 meals. Percent of energy/protein needs met: 47%/32% Burn Absent Trauma Absent #1 Nutrition Diagnosis Inadequate oral intake As Evidenced by Signs and Symptoms pt drinking 100% of full liquid diet Diagnosis Progress(for reassessment Improved documentation) Is patient on ventilator? No Is Patient Ambulatory and/or Out of Bed Yes REE-([facility]-ambulatory/OOB) [ 2485.769 [id number]] Calculation Used for Recommendations [facility] Additional Notes Protein Needs: 117-156g (1.5- 2g/kg IBW) Fluid Needs: 1 ml/kcal Nutrition Intervention Change Diet Order: Advance diet when medically able Add Supplement/Snack (indicate name/kcal Ensure Enlive 1 daily /protein ) Provides kCal: 350 Provides Protein (gm) 20 Goal #1 Advance diet to meet nutrient needs Anticipated Discharge Needs: Unable to identify at this time Follow-Up By: 11/20/18 Additional Comments Follow for PO and ONS intakes
--- NOTE | 2018-11-18 12:59 | Progress Note ---
Assessment and Plan Pt feeling well without compls. Abd soft, non tender awaiting CT guided drainage Selected Entries 11/18/18 12:00 Temperature 98 F Pulse Rate 60 Respiratory 18 Rate Blood Pressure 114/62 [Right] Laboratory Tests 11/14/18 11/18/18 05:16 04:38 WBC 16.8 H 15.9 H Objective Vital Signs - 12hr 11/18/18 11/18/18 11/18/18 04:45 04:46 12:00 Temperature 97.9 F 98 F Pulse Rate 57 L 60 Respiratory 16 18 Rate Blood Pressure 107/54 Blood Pressure 114/62 [Right] O2 Sat by Pulse 97 97 Oximetry - Labs 11/18/18 04:38 11/13/18 07:55
[2018-11-18] MEDS ORDERED: SUBLIMAZE IV ONE (14:24)
[2018-11-18] MEDS: SUBLIMAZE IV NR ×2 (14:25→15:09)
--- NOTE | 2018-11-18 15:15 | Post Operative Note ---
Date of procedure: 11/18/18 Pre-op diagnosis: Abdominal fluid collection, perforated diverticulitis Post-op diagnosis: same Findings: 70 mL purulent fluid with old blood removed Procedure: CT guided drainage of the sigmoid diverticular abscess/fluid collection with an 8 Fr drain Anesthesia: local (w/ conscious sedation) Surgeon: ARVIN RUST Estimated blood loss: minimal Condition: stable Disposition: floor
[2018-11-18] MEDS: HABITROL TD SCH (15:41)
[2018-11-18] MEDS: MORPHINE IV PRN ×2 (18:10→21:38)
[2018-11-18] MEDS: ZOFRAN IV PRN (21:37)
[2018-11-18] MEDS: ATIVAN IV PRN (22:24)
[2018-11-19] MEDS: ZOSYN/NS 4.5GM/100ML 4.5 GM/100 ML VIAL IV SCH ×3 (01:12→21:20)
[2018-11-19] MEDS: MORPHINE IV PRN ×6 (01:12→21:21)
[2018-11-19] MEDS: D5/0.45NS 1,000 ML IV SCH ×2 (05:22→17:16)
[2018-11-19] MEDS: LOVENOX SUB-Q SCH (09:08)
[2018-11-19] MEDS: HABITROL TD SCH (09:09)
--- NOTE | 2018-11-19 09:20 | Progress Note ---
Assessment and Plan Pt feelilng well. Successful percutaneous drainage of intra abd abscess. Abd soft stable no further drainage noted resume full liq diet await cult report continue present care Selected Entries 11/18/18 11/19/18 23:43 07:00 Temperature 97.6 F Respiratory 18 Rate O2 Sat by Pulse 92 Oximetry Blood Pressure 115/67 Objective Vital Signs - 12hr 11/18/18 11/19/18 11/19/18 23:43 00:12 04:32 Temperature 97.4 F L 97.4 F L Pulse Rate 77 66 Respiratory 17 17 Rate Blood Pressure 115/67 Blood Pressure 115/83 [Right] O2 Sat by Pulse 96 95 98 Oximetry 11/19/18 07:00 Temperature 97.6 F Pulse Rate 88 Respiratory 18 Rate Blood Pressure Blood Pressure 114/69 [Right] O2 Sat by Pulse 92 Oximetry - Labs 11/18/18 04:38 11/13/18 07:55
--- NOTE | 2018-11-19 10:41 | Progress Note ---
Assessment and Plan Cultures: Blood culture 11/10/2018 no growth to date Surgical culture 11/18/18: no growth to date Assessment: 33 y/o male with history of obesity and diverticulosis; admitted on 11/10/2018 due to abdominal pain associated with chills and night sweats for 5 days: 1) Sepsis: Leukocytosis continuing. No fevers. Etiology most likely ruptured diverticulitis with an abscess. CRP- 22.20. 2) Ruptured diverticulitis with an abscess: CT abdomen showed an 4.7x4.5 cm gas/fluid collection in lower mesenteric fat. Repeat CT shows interval increase in the size of the fluid collection of the upper pelvis/lower abdomen region most likely representing a sigmoid diverticular abscess. s/p .CT guided drainage of the sigmoid diverticular abscess/fluid collection Surgical cultures in progress. Recommendations: -follow-up blood cultures -follow up OR cultures from CT guided drainage - continue Zosyn 4.5g IV every 8 hours, D5 [facility] M: [phone] O:[phone] Subjective Date of service: 11/19/18 Interval history: Patient seen and examined. Denied abdominal pain or SOB. Tolerating solid foods. No fevers, Objective - Exam Narrative Exam: General appearance: Alert in NAD, conversant Eyes: anicteric sclerae, moist conjunctivae; no lid-lag; PERRLA HENT: Atraumatic; oropharynx clear with moist mucous membranes and no mucosal ulcerations/no oral thrush; normal hard and soft palate. Normal external ears. Neck: Trachea midline; supple, no thyromegaly or lymphadenopathy Lungs: CTA, with normal respiratory effort and no intercostal retractions CV: RRR, no murmurs Abdomen: Soft, mild diffuse tenderness s/p CT guided drainage of the sigmoid diverticular abscess, + Wound drain with minimal sanguineous drainage Extremities: No peripheral edema or extremity lymphadenopathy Skin: Normal temperature, turgor and texture; no rash, ulcers or subcutaneous nodules Psych: Appropriate affect, alert and oriented to person, place and time. Neuro: alert and oriented x 3. Moving all extermities - Constitutional Vitals: Vital Signs Temp Pulse Resp BP Pulse Ox 97.6 F 88 18 114/69 92 11/19/18 07:00 11/19/18 07:00 11/19/18 07:00 11/19/18 07:00 11/19/18 07:00 Temperature -Last 24 Hours Temperature 97.6 F Temperature 97.4 F Temperature 97.4 F Temperature 97.8 F Temperature 97.5 F Temperature 98 F - Labs CBC & Chem 7: 11/18/18 04:38 11/13/18 07:55
--- NOTE | 2018-11-19 14:48 | Progress Note ---
<BLANCA JOSEPH - Last Filed: 11/19/18 15:06> Assessment and Plan Assessment and plan: 33-year-old male with history of diverticulitis presented to the ED on 11/10 with complaints of abdominal pain that started 5 days ago. Pain is in the lower quadrant which he describes as a sharp pain, intermittent in 4 hours, intensity 8/10, no radiation, better with pain medications given. He did place a subjective fever chills, no nausea vomiting. The patient was seen at [facility] on 11/10 and was admitted, but left AMA because he stated he "flipped out". CT abdomen showed 4.7x4.5 cm Contained Abscess, within the mesenteric fat, Perforated, Sigmoid Diverticlum, moderately large umbilical hernia. He was admitted to the surgical floor. Diverticular Abscess with Microperforation Initial CT on 11/10 showed 4.7x4.5 cm Contained Abscess, within the mesenteric fat, Perforated, Sigmoid Diverticlum, moderately large umbilical hernia. Repeat CT shows interval increase in the size of the fluid collection of the upper pelvis/lower abdomen region most likely representing a sigmoid diver ticular abscess. S/P CT guided abscess drain on 11/18- 70 ml of purulent fluid with old blood removed Cultures pending Diet advance to full liquid per general surgery Gen. surgery following and managing Sepsis due to diverticulitis Leukocytosis trending down at 15.9 Afebrile Continue Zosyn ID following and managing Peritoneal irritation Continue Zosyn Hypoglycemia Continue POC BG monitoring Continue D5 1/2 NS History Interval history: Patient is seen today on the surgical floor. Patient states that he is hungry and wants to have"steak" for dinner. No acute overnight events Hospitalist Physical - Constitutional Vitals: Temp Pulse Resp BP Pulse Ox 97.8 F 74 18 119/68 95 11/19/18 11:55 11/19/18 11:55 11/19/18 11:55 11/19/18 11:55 11/19/18 14:07 General appearance: Present: no acute distress, disheveled - EENT Eyes: Present: PERRL, EOM intact ENT: hearing intact, clear oral mucosa, dentition normal - Neck Neck: Present: supple, normal ROM - Respiratory Respiratory effort: normal Respiratory: bilateral: CTA - Cardiovascular Heart rate: 74 Rhythm: regular (beats per minute) Heart Sounds: Present: S1 & S2 - Extremities Extremities: pulses intact, pulses symmetrical, No edema - Abdominal General gastrointestinal: soft, tender, hypoactive bowel sounds - Integumentary Integumentary: Present: warm, dry - Psychiatric Psychiatric: memory intact, cooperative - Neurologic Neurologic: CNII-XII intact, moves all extremities - Allied Health Allied health notes reviewed: nursing Results - Labs CBC & Chem 7: 11/18/18 04:38 11/13/18 07:55 Labs: Laboratory Last Values WBC 15.9 K/mm3 (4.5-11.0) H 11/18/18 04:38 RBC 5.01 M/mm3 (3.65-5.03) 11/18/18 04:38 Hgb 14.2 gm/dl (11.8-15.2) 11/18/18 04:38 Hct 43.3 % (35.5-45.6) 11/18/18 04:38 MCV 86 fl (84-94) 11/18/18 04:38 MCH 28 pg (28-32) 11/18/18 04:38 MCHC 33 % (32-34) 11/18/18 04:38 RDW 14.8 % (13.2-15.2) 11/18/18 04:38 Plt Count 427 K/mm3 (140-440) 11/18/18 04:38 Lymph % (Auto) 13.5 % (13.4-35.0) 11/14/18 05:16 Brooke % (Auto) 8.7 % (0.0-7.3) H 11/14/18 05:16 Eos % (Auto) 1.9 % (0.0-4.3) 11/14/18 05:16 Baso % (Auto) 1.2 % (0.0-1.8) 11/14/18 05:16 Lymph # 2.3 K/mm3 (1.2-5.4) 11/14/18 05:16 Brooke # 1.5 K/mm3 (0.0-0.8) H 11/14/18 05:16 Eos # 0.3 K/mm3 (0.0-0.4) 11/14/18 05:16 Baso # 0.2 K/mm3 (0.0-0.1) H 11/14/18 05:16 Add Manual Diff Complete 11/18/18 04:38 Total Counted 100 11/18/18 04:38 Seg Neutrophils % 74.7 % (40.0-70.0) H 11/14/18 05:16 Seg Neuts % (Manual) 64.0 % (40.0-70.0) 11/18/18 04:38 Band Neutrophils % 0 % 11/18/18 04:38 Lymphocytes % (Manual) 23.0 % (13.4-35.0) 11/18/18 04:38 Reactive Lymphs % (Man) 0 % 11/18/18 04:38 Monocytes % (Manual) 8.0 % (0.0-7.3) H 11/18/18 04:38 Eosinophils % (Manual) 3.0 % (0.0-4.3) 11/18/18 04:38 Basophils % (Manual) 2.0 % (0.0-1.8) H 11/18/18 04:38 Metamyelocytes % 0 % 11/18/18 04:38 Myelocytes % 0 % 11/18/18 04:38 Promyelocytes % 0 % 11/18/18 04:38 Blast Cells % 0 % 11/18/18 04:38 Nucleated RBC % Not Reportable 11/18/18 04:38 Seg Neutrophils # 12.5 K/mm3 (1.8-7.7) H 11/14/18 05:16 Seg Neutrophils # Man 10.2 K/mm3 (1.8-7.7) H 11/18/18 04:38 Band Neutrophils # 0.0 K/mm3 11/18/18 04:38 Lymphocytes # (Manual) 3.7 K/mm3 (1.2-5.4) 11/18/18 04:38 Abs React Lymphs (Man) 0.0 K/mm3 11/18/18 04:38 Monocytes # (Manual) 1.3 K/mm3 (0.0-0.8) H 11/18/18 04:38 Eosinophils # (Manual) 0.5 K/mm3 (0.0-0.4) H 11/18/18 04:38 Basophils # (Manual) 0.3 K/mm3 (0.0-0.1) H 11/18/18 04:38 Metamyelocytes # 0.0 K/mm3 11/18/18 04:38 Myelocytes # 0.0 K/mm3 11/18/18 04:38 Promyelocytes # 0.0 K/mm3 11/18/18 04:38 Blast Cells # 0.0 K/mm3 11/18/18 04:38 WBC Morphology Not Reportable 11/18/18 04:38 Hypersegmented Neuts Not Reportable 11/18/18 04:38 Hyposegmented Neuts Not Reportable 11/18/18 04:38 Hypogranular Neuts Not Reportable 11/18/18 04:38 Smudge Cells Not Reportable 11/18/18 04:38 Toxic Granulation Not Reportable 11/18/18 04:38 Toxic Vacuolation Not Reportable 11/18/18 04:38 Dohle Bodies Not Reportable 11/18/18 04:38 Pelger-Huet Anomaly Not Reportable 11/18/18 04:38 Manuel Rods Not Reportable 11/18/18 04:38 Platelet Estimate Not Reportable 11/18/18 04:38 Clumped Platelets Not Reportable 11/18/18 04:38 Plt Clumps, EDTA Not Reportable 11/18/18 04:38 Large Platelets Not Reportable 11/18/18 04:38 Giant Platelets Not Reportable 11/18/18 04:38 Platelet Satelliting Not Reportable 11/18/18 04:38 Plt Morphology Comment Not Reportable 11/18/18 04:38 RBC Morphology Normal 11/18/18 04:38 Dimorphic RBCs Not Reportable 11/18/18 04:38 Polychromasia Not Reportable 11/18/18 04:38 Hypochromasia Not Reportable 11/18/18 04:38 Poikilocytosis Not Reportable 11/18/18 04:38 Anisocytosis Not Reportable 11/18/18 04:38 Microcytosis Not Reportable 11/18/18 04:38 Macrocytosis Not Reportable 11/18/18 04:38 Spherocytes Not Reportable 11/18/18 04:38 Pappenheimer Bodies Not Reportable 11/18/18 04:38 Sickle Cells Not Reportable 11/18/18 04:38 Target Cells Not Reportable 11/18/18 04:38 Tear Drop Cells Not Reportable 11/18/18 04:38 Ovalocytes Not Reportable 11/18/18 04:38 Helmet Cells Not Reportable 11/18/18 04:38 Petit-Slater Bodies Not Reportable 11/18/18 04:38 Byron Rings Not Reportable 11/18/18 04:38 Inez Cells Not Reportable 11/18/18 04:38 Bite Cells Not Reportable 11/18/18 04:38 Crenated Cell Not Reportable 11/18/18 04:38 Elliptocytes Not Reportable 11/18/18 04:38 Acanthocytes (Spur) Not Reportable 11/18/18 04:38 Rouleaux Not Reportable 11/18/18 04:38 Hemoglobin C Crystals Not Reportable 11/18/18 04:38 Schistocytes Not Reportable 11/18/18 04:38 Malaria parasites Not Reportable 11/18/18 04:38 Hood Bodies Not Reportable 11/18/18 04:38 Hem Pathologist Commnt No 11/18/18 04:38 PT 13.5 Sec. (12.2-14.9) 11/18/18 08:36 INR 0.97 (0.87-1.13) 11/18/18 08:36 APTT 27.0 Sec. (24.2-36.6) 11/18/18 08:36 Sodium 138 mmol/L (137-145) 11/13/18 07:55 Potassium 3.8 mmol/L (3.6-5.0) 11/13/18 07:55 Chloride 100.6 mmol/L (98-107) 11/13/18 07:55 Carbon Dioxide 20 mmol/L (22-30) L 11/13/18 07:55 Anion Gap 21 mmol/L 11/13/18 07:55 BUN 7 mg/dL (9-20) L 11/13/18 07:55 Creatinine 0.6 mg/dL (0.8-1.5) L 11/13/18 07:55 Estimated GFR > 60 ml/min 11/13/18 07:55 BUN/Creatinine Ratio 12 % 11/13/18 07:55 Glucose 63 mg/dL (75-100) L 11/13/18 07:55 POC Glucose 54 (70-105) L 11/17/18 17:15 Lactic Acid 0.70 mmol/L (0.7-2.0) 11/10/18 19:50 Calcium 8.8 mg/dL (8.4-10.2) 11/13/18 07:55 Total Bilirubin 0.90 mg/dL (0.1-1.2) 11/10/18 15:04 Direct Bilirubin 0.4 mg/dL (0-0.2) H 11/10/18 15:04 Indirect Bilirubin 0.5 mg/dL 11/10/18 15:04 AST 16 units/L (5-40) 11/10/18 15:04 ALT 14 units/L (7-56) 11/10/18 15:04 Alkaline Phosphatase 78 units/L (35-129) 11/10/18 15:04 C-Reactive Protein 22.20 mg/dL (0.00-1.30) H 11/11/18 07:30 Total Protein 7.5 g/dL (6.3-8.2) 11/10/18 15:04 Albumin 3.5 g/dL (3.9-5) L 11/10/18 15:04 Albumin/Globulin Ratio 0.9 % 11/10/18 15:04 Lipase 47 units/L (13-60) 11/10/18 15:04 Urine Color Giselle (Yellow) 11/10/18 17:46 Urine Turbidity Clear (Clear) 11/10/18 17:46 Urine pH 6.0 (5.0-7.0) 11/10/18 17:46 Ur Specific Mcfarland 1.043 (1.003-1.030) H 11/10/18 17:46 Urine Protein 100 mg/dl mg/dL (Negative) 11/10/18 17:46 Urine Glucose (UA) Neg mg/dL (Negative) 11/10/18 17:46 Urine Ketones 20 mg/dL (Negative) 11/10/18 17:46 Urine Blood Sm (Negative) 11/10/18 17:46 Urine Nitrite Neg (Negative) 11/10/18 17:46 Urine Bilirubin Sm (Negative) 11/10/18 17:46 Urine Ictotest Positive (Negative) 11/10/18 17:46 Urine Urobilinogen 4.0 mg/dL (<2.0) 11/10/18 17:46 Ur Leukocyte Esterase Neg (Negative) 11/10/18 17:46 Urine WBC (Auto) 8.0 /HPF (0.0-6.0) H 11/10/18 17:46 Urine RBC (Auto) 12.0 /HPF (0.0-6.0) 11/10/18 17:46 U Epithel Cells (Auto) 3.0 /HPF (0-13.0) 11/10/18 17:46 Urine Bacteria (Auto) 1+ /HPF (Negative) 11/10/18 17:46 Urine Mucus 3+ /HPF 11/10/18 17:46 Urine Yeast (Budding) 2+ /HPF 11/10/18 17:46 Urine Opiates Screen Presumptive positive 11/11/18 Unknown Urine Methadone Screen Presumptive negative 11/11/18 Unknown Ur Barbiturates Screen Presumptive negative 11/11/18 Unknown Ur Phencyclidine Scrn Presumptive negative 11/11/18 Unknown Ur Amphetamines Screen Presumptive negative 11/11/18 Unknown U Benzodiazepines Scrn Presumptive negative 11/11/18 Unknown Urine Cocaine Screen Presumptive negative 11/11/18 Unknown U Marijuana (THC) Screen Presumptive negative 11/11/18 Unknown Drugs of Abuse Note Disclamer 11/11/18 Unknown Active Medications - Current Medications Current Medications: Generic Name Dose Route Start Last Admin Trade Name Freq PRN Reason Stop Dose Admin Acetaminophen 650 mg 11/10/18 22:43 Tylenol PO Q4H PRN Pain MILD(1-3)/Fever >100.5/CORTES Enoxaparin Sodium 40 mg 11/11/18 10:00 11/19/18 09:08 Lovenox SUB-Q 40 mg QDAY FLACA Administration Dextrose/Sodium Chloride 1,000 mls @ 100 mls/hr 11/13/18 17:00 11/19/18 05:22 D5/0.45ns IV 100 mls/hr DIRECT FLACA Administration Piperacillin Sod/Tazobactam Sod 4.5 gm in 100 mls @ 200 mls/hr 11/15/18 18:00 11/19/18 10:19 Zosyn/Ns 4.5gm/100ml IV 200 mls/hr Q8H FLACA Administration Protocol Lorazepam 1 mg 11/12/18 10:00 11/18/18 22:24 Ativan IV 1 mg QHS PRN Administration Insomnia Morphine Sulfate 2 mg 11/10/18 22:43 11/19/18 13:09 Morphine IV 2 mg Q4H PRN Administration Pain, Moderate (4-6) Nicotine 21 mg 11/11/18 10:00 11/19/18 09:09 Habitrol TD 21 mg QDAY FLACA Administration Ondansetron HCl 4 mg 11/10/18 22:43 11/18/18 21:37 Zofran IV 4 mg Q4H PRN Administration Nausea And Vomiting Sodium Chloride 10 ml 11/11/18 10:00 11/18/18 22:26 Sodium Chloride Flush Syringe 10 Ml IV 10 ml BID FLACA Administration Sodium Chloride 10 ml 11/10/18 22:43 11/13/18 05:49 Sodium Chloride Flush Syringe 10 Ml IV 10 ml PRN PRN Administration LINE FLUSH Nutrition/Malnutrition Assess - Dietary Evaluation Nutrition/Malnutrition Findings: Nutrition Notes Start: 11/11/18 13:58 Freq: Status: Active Protocol: Document 11/15/18 15:35 RM (Rec: 11/15/18 15:45 RM [email or web address]) Nutrition Notes Initial or Follow up Reassessment Current Diagnosis Sepsis Other Pertinent Diagnosis Diverticular abscess with microperforation Current Diet Full liquid Labs/Tests Reviewed Pertinent Medications Reviewed Height 5 ft 11 in Weight 95 kg [place] Body Weight (kg) 78.18 BMI 29.2 Subjective/Other Information Pt asleep at time of visit. Recorded PO intake 100% X 2 meals. Percent of energy/protein needs met: 47%/32% Burn Absent Trauma Absent #1 Nutrition Diagnosis Inadequate oral intake As Evidenced by Signs and Symptoms pt drinking 100% of full liquid diet Diagnosis Progress(for reassessment Improved documentation) Is patient on ventilator? No Is Patient Ambulatory and/or Out of Bed Yes REE-([facility]-ambulatory/OOB) [ 2485.769 NUTR.MSJOOB] Calculation Used for Recommendations [facility] Additional Notes Protein Needs: 117-156g (1.5- 2g/kg IBW) Fluid Needs: 1 ml/kcal Nutrition Intervention Change Diet Order: Advance diet when medically able Add Supplement/Snack (indicate name/kcal Ensure Enlive 1 daily /protein ) Provides kCal: 350 Provides Protein (gm) 20 Goal #1 Advance diet to meet nutrient needs Anticipated Discharge Needs: Unable to identify at this time Follow-Up By: 11/20/18 Additional Comments Follow for PO and ONS intakes <VIRGINIA HORTA - Last Filed: 11/22/18 14:04> Assessment and Plan Assessment and plan: I saw and evaluated the patient. I agree with the findings and the plan of care as documented in the Nurse Practitioner's~note, with the following corrections and additions. Continue antibiotics per ID, management of intra-abdominal drain her surgery, advance diet per surgery History Interval history: His abdominal pain has now resolved, denies shortness of breath, denies chest pain, denies fever Hospitalist Physical - Constitutional Vitals: Temp Pulse Resp BP Pulse Ox 97.6 F 85 18 168/68 96 11/22/18 12:00 11/22/18 12:00 11/22/18 12:00 11/22/18 12:00 11/22/18 12:00 Results - Labs CBC & Chem 7: 11/21/18 07:03 11/13/18 07:55 Labs: Laboratory Last Values WBC 12.7 K/mm3 (4.5-11.0) H 11/21/18 07:03 RBC 4.72 M/mm3 (3.65-5.03) 11/21/18 07:03 Hgb 13.7 gm/dl (11.8-15.2) 11/21/18 07:03 Hct 41.1 % (35.5-45.6) 11/21/18 07:03 MCV 87 fl (84-94) 11/21/18 07:03 MCH 29 pg (28-32) 11/21/18 07:03 MCHC 33 % (32-34) 11/21/18 07:03 RDW 14.2 % (13.2-15.2) 11/21/18 07:03 Plt Count 390 K/mm3 (140-440) 11/21/18 07:03 Lymph % (Auto) 22.8 % (13.4-35.0) 11/21/18 07:03 Brooke % (Auto) 6.7 % (0.0-7.3) 11/21/18 07:03 Eos % (Auto) 2.8 % (0.0-4.3) 11/21/18 07:03 Baso % (Auto) 1.1 % (0.0-1.8) 11/21/18 07:03 Lymph # 2.9 K/mm3 (1.2-5.4) 11/21/18 07:03 Brooke # 0.9 K/mm3 (0.0-0.8) H 11/21/18 07:03 Eos # 0.4 K/mm3 (0.0-0.4) 11/21/18 07:03 Baso # 0.1 K/mm3 (0.0-0.1) 11/21/18 07:03 Add Manual Diff Complete 11/18/18 04:38 Total Counted 100 11/18/18 04:38 Seg Neutrophils % 66.6 % (40.0-70.0) 11/21/18 07:03 Seg Neuts % (Manual) 64.0 % (40.0-70.0) 11/18/18 04:38 Band Neutrophils % 0 % 11/18/18 04:38 Lymphocytes % (Manual) 23.0 % (13.4-35.0) 11/18/18 04:38 Reactive Lymphs % (Man) 0 % 11/18/18 04:38 Monocytes % (Manual) 8.0 % (0.0-7.3) H 11/18/18 04:38 Eosinophils % (Manual) 3.0 % (0.0-4.3) 11/18/18 04:38 Basophils % (Manual) 2.0 % (0.0-1.8) H 11/18/18 04:38 Metamyelocytes % 0 % 11/18/18 04:38 Myelocytes % 0 % 11/18/18 04:38 Promyelocytes % 0 % 11/18/18 04:38 Blast Cells % 0 % 11/18/18 04:38 Nucleated RBC % Not Reportable 11/18/18 04:38 Seg Neutrophils # 8.5 K/mm3 (1.8-7.7) H 11/21/18 07:03 Seg Neutrophils # Man 10.2 K/mm3 (1.8-7.7) H 11/18/18 04:38 Band Neutrophils # 0.0 K/mm3 11/18/18 04:38 Lymphocytes # (Manual) 3.7 K/mm3 (1.2-5.4) 11/18/18 04:38 Abs React Lymphs (Man) 0.0 K/mm3 11/18/18 04:38 Monocytes # (Manual) 1.3 K/mm3 (0.0-0.8) H 11/18/18 04:38 Eosinophils # (Manual) 0.5 K/mm3 (0.0-0.4) H 11/18/18 04:38 Basophils # (Manual) 0.3 K/mm3 (0.0-0.1) H 11/18/18 04:38 Metamyelocytes # 0.0 K/mm3 11/18/18 04:38 Myelocytes # 0.0 K/mm3 11/18/18 04:38 Promyelocytes # 0.0 K/mm3 11/18/18 04:38 Blast Cells # 0.0 K/mm3 11/18/18 04:38 WBC Morphology Not Reportable 11/18/18 04:38 Hypersegmented Neuts Not Reportable 11/18/18 04:38 Hyposegmented Neuts Not Reportable 11/18/18 04:38 Hypogranular Neuts Not Reportable 11/18/18 04:38 Smudge Cells Not Reportable 11/18/18 04:38 Toxic Granulation Not Reportable 11/18/18 04:38 Toxic Vacuolation Not Reportable 11/18/18 04:38 Dohle Bodies Not Reportable 11/18/18 04:38 Pelger-Huet Anomaly Not Reportable 11/18/18 04:38 Manuel Rods Not Reportable 11/18/18 04:38 Platelet Estimate Not Reportable 11/18/18 04:38 Clumped Platelets Not Reportable 11/18/18 04:38 Plt Clumps, EDTA Not Reportable 11/18/18 04:38 Large Platelets Not Reportable 11/18/18 04:38 Giant Platelets Not Reportable 11/18/18 04:38 Platelet Satelliting Not Reportable 11/18/18 04:38 Plt Morphology Comment Not Reportable 11/18/18 04:38 RBC Morphology Normal 11/18/18 04:38 Dimorphic RBCs Not Reportable 11/18/18 04:38 Polychromasia Not Reportable 11/18/18 04:38 Hypochromasia Not Reportable 11/18/18 04:38 Poikilocytosis Not Reportable 11/18/18 04:38 Anisocytosis Not Reportable 11/18/18 04:38 Microcytosis Not Reportable 11/18/18 04:38 Macrocytosis Not Reportable 11/18/18 04:38 Spherocytes Not Reportable 11/18/18 04:38 Pappenheimer Bodies Not Reportable 11/18/18 04:38 Sickle Cells Not Reportable 11/18/18 04:38 Target Cells Not Reportable 11/18/18 04:38 Tear Drop Cells Not Reportable 11/18/18 04:38 Ovalocytes Not Reportable 11/18/18 04:38 Helmet Cells Not Reportable 11/18/18 04:38 Petit-Slater Bodies Not Reportable 11/18/18 04:38 Byron Rings Not Reportable 11/18/18 04:38 Inez Cells Not Reportable 11/18/18 04:38 Bite Cells Not Reportable 11/18/18 04:38 Crenated Cell Not Reportable 11/18/18 04:38 Elliptocytes Not Reportable 11/18/18 04:38 Acanthocytes (Spur) Not Reportable 11/18/18 04:38 Rouleaux Not Reportable 11/18/18 04:38 Hemoglobin C Crystals Not Reportable 11/18/18 04:38 Schistocytes Not Reportable 11/18/18 04:38 Malaria parasites Not Reportable 11/18/18 04:38 Hood Bodies Not Reportable 11/18/18 04:38 Hem Pathologist Commnt No 11/18/18 04:38 PT 13.5 Sec. (12.2-14.9) 11/18/18 08:36 INR 0.97 (0.87-1.13) 11/18/18 08:36 APTT 27.0 Sec. (24.2-36.6) 11/18/18 08:36 Sodium 138 mmol/L (137-145) 11/13/18 07:55 Potassium 3.8 mmol/L (3.6-5.0) 11/13/18 07:55 Chloride 100.6 mmol/L (98-107) 11/13/18 07:55 Carbon Dioxide 20 mmol/L (22-30) L 11/13/18 07:55 Anion Gap 21 mmol/L 11/13/18 07:55 BUN 7 mg/dL (9-20) L 11/13/18 07:55 Creatinine 0.6 mg/dL (0.8-1.5) L 11/13/18 07:55 Estimated GFR > 60 ml/min 11/13/18 07:55 BUN/Creatinine Ratio 12 % 11/13/18 07:55 Glucose 63 mg/dL (75-100) L 11/13/18 07:55 POC Glucose 54 (70-105) L 11/17/18 17:15 Lactic Acid 0.70 mmol/L (0.7-2.0) 11/10/18 19:50 Calcium 8.8 mg/dL (8.4-10.2) 11/13/18 07:55 Total Bilirubin 0.90 mg/dL (0.1-1.2) 11/10/18 15:04 Direct Bilirubin 0.4 mg/dL (0-0.2) H 11/10/18 15:04 Indirect Bilirubin 0.5 mg/dL 11/10/18 15:04 AST 16 units/L (5-40) 11/10/18 15:04 ALT 14 units/L (7-56) 11/10/18 15:04 Alkaline Phosphatase 78 units/L (35-129) 11/10/18 15:04 C-Reactive Protein 22.20 mg/dL (0.00-1.30) H 11/11/18 07:30 Total Protein 7.5 g/dL (6.3-8.2) 11/10/18 15:04 Albumin 3.5 g/dL (3.9-5) L 11/10/18 15:04 Albumin/Globulin Ratio 0.9 % 11/10/18 15:04 Lipase 47 units/L (13-60) 11/10/18 15:04 Urine Color Giselle (Yellow) 11/10/18 17:46 Urine Turbidity Clear (Clear) 11/10/18 17:46 Urine pH 6.0 (5.0-7.0) 11/10/18 17:46 Ur Specific Mcfarland 1.043 (1.003-1.030) H 11/10/18 17:46 Urine Protein 100 mg/dl mg/dL (Negative) 11/10/18 17:46 Urine Glucose (UA) Neg mg/dL (Negative) 11/10/18 17:46 Urine Ketones 20 mg/dL (Negative) 11/10/18 17:46 Urine Blood Sm (Negative) 11/10/18 17:46 Urine Nitrite Neg (Negative) 11/10/18 17:46 Urine Bilirubin Sm (Negative) 11/10/18 17:46 Urine Ictotest Positive (Negative) 11/10/18 17:46 Urine Urobilinogen 4.0 mg/dL (<2.0) 11/10/18 17:46 Ur Leukocyte Esterase Neg (Negative) 11/10/18 17:46 Urine WBC (Auto) 8.0 /HPF (0.0-6.0) H 11/10/18 17:46 Urine RBC (Auto) 12.0 /HPF (0.0-6.0) 11/10/18 17:46 U Epithel Cells (Auto) 3.0 /HPF (0-13.0) 11/10/18 17:46 Urine Bacteria (Auto) 1+ /HPF (Negative) 11/10/18 17:46 Urine Mucus 3+ /HPF 11/10/18 17:46 Urine Yeast (Budding) 2+ /HPF 11/10/18 17:46 Urine Opiates Screen Presumptive positive 11/11/18 Unknown Urine Methadone Screen Presumptive negative 11/11/18 Unknown Ur Barbiturates Screen Presumptive negative 11/11/18 Unknown Ur Phencyclidine Scrn Presumptive negative 11/11/18 Unknown Ur Amphetamines Screen Presumptive negative 11/11/18 Unknown U Benzodiazepines Scrn Presumptive negative 11/11/18 Unknown Urine Cocaine Screen Presumptive negative 11/11/18 Unknown U Marijuana (THC) Screen Presumptive negative 11/11/18 Unknown Drugs of Abuse Note Disclamer 11/11/18 Unknown Active Medications - Current Medications Current Medications: Generic Name Dose Route Start Last Admin Trade Name Freq PRN Reason Stop Dose Admin Acetaminophen 650 mg 11/10/18 22:43 Tylenol PO Q4H PRN Pain MILD(1-3)/Fever >100.5/CORTES Enoxaparin Sodium 40 mg 11/11/18 10:00 11/22/18 10:23 Lovenox SUB-Q Not Given QDAY FLACA Dextrose/Sodium Chloride 1,000 mls @ 100 mls/hr 11/13/18 17:00 11/22/18 03:55 D5/0.45ns IV 100 mls/hr DIRECT FLACA Administration Lorazepam 1 mg 11/12/18 10:00 11/21/18 21:10 Ativan IV 1 mg QHS PRN Administration Insomnia Morphine Sulfate 2 mg 11/10/18 22:43 05/03/19 07:37 Morphine IV 2 mg Q4H PRN Administration Pain, Moderate (4-6) Nicotine 21 mg 11/11/18 10:00 11/22/18 10:15 Habitrol TD 21 mg QDAY FLACA Administration Ondansetron HCl 4 mg 11/10/18 22:43 11/18/18 21:37 Zofran IV 4 mg Q4H PRN Administration Nausea And Vomiting Sodium Chloride 10 ml 11/11/18 10:00 11/22/18 10:23 Sodium Chloride Flush Syringe 10 Ml IV 10 ml BID FLACA Administration Sodium Chloride 10 ml 11/10/18 22:43 11/19/18 21:27 Sodium Chloride Flush Syringe 10 Ml IV 10 ml PRN PRN Administration LINE FLUSH Nutrition/Malnutrition Assess - Dietary Evaluation Nutrition/Malnutrition Findings: Nutrition Notes Start: 11/11/18 13:58 Freq: Status: Active Protocol: Document 11/20/18 10:07 EB (Rec: 11/20/18 10:12 EB [id number]) Co-Sign 11/20/18 10:07 LP Nutrition Notes Initial or Follow up Reassessment Current Diagnosis Sepsis Other Pertinent Diagnosis Diverticular abscess with microperforation Current Diet Regular diet with high fiber Labs/Tests Reviewed Pertinent Medications Reviewed Height 5 ft 11 in Weight 95 kg [place] Body Weight (kg) 78.18 BMI 29.2 Subjective/Other Information Pt awake and just finished breakfast at time of visit. Pt reports no pain when eating, no N/V, and states he is still very hungry after [place] diet meal. Pt consumes 100% of [place] diet consistently. Pt diet advanced to regular diet with high fiber today. Percent of energy/protein needs met: 46%/32% Burn Absent Trauma Absent GI Symptoms None Current % PO Good (75-100%) #1 Nutrition Diagnosis Inadequate oral intake As Evidenced by Signs and Symptoms pt drinking 100% of full liquid diet Diagnosis Progress(for reassessment Improved documentation) Is patient on ventilator? No Is Patient Ambulatory and/or Out of Bed Yes REE-([place] Jeor-ambulatory/OOB) [ 2485.769 NUTR.[id number]] Calculation Used for Recommendations [place] Jeor Additional Notes Protein Needs: 117-156g (1.5- 2g/kg IBW) Fluid Needs: 1 ml/kcal Nutrition Intervention Change Diet Order: Advance diet when medically able Goal #1 Advance diet to meet nutrient needs Anticipated Discharge Needs: Unable to identify at this time Follow-Up By: 11/26/18 Additional Comments F/u: New diet tolerance
[2018-11-19] MEDS: SODIUM CHLORIDE FLUSH SYRINGE 10 ML IV SCH ×2 (20:50→21:31)
[2018-11-19] MEDS: ATIVAN IV PRN (21:20)
[2018-11-19] MEDS: SODIUM CHLORIDE FLUSH SYRINGE 10 ML IV PRN (21:27)
[2018-11-20] MEDS: ZOSYN/NS 4.5GM/100ML 4.5 GM/100 ML VIAL IV SCH ×3 (02:15→17:00)
[2018-11-20] MEDS: MORPHINE IV PRN ×5 (02:16→20:55)
[2018-11-20] MEDS: D5/0.45NS 1,000 ML IV SCH ×2 (02:20→11:59)
[2018-11-20 05:09] LABS: Basophils # (Auto) 0.2 K/mm3 (0.0-0.1); Basophils % (Auto) 1.2 % (0.0-1.8); Eosinophils # (Auto) 0.4 K/mm3 (0.0-0.4); Eosinophils % (Auto) 2.8 % (0.0-4.3); Hematocrit 42.6 % (35.5-45.6); Hemoglobin 13.9 gm/dl (11.8-15.2); Lymphocytes # (Auto) 3.1 K/mm3 (1.2-5.4); Lymphocytes % (Auto) 23.8 % (13.4-35.0); Mean Corpuscular HGB Conc 33 % (32-34); Mean Corpuscular Volume 87 fl (84-94); Monocytes # (Auto) 0.8 K/mm3 (0.0-0.8); Monocytes % (Auto) 5.8 % (0.0-7.3); Platelet Count 375 K/mm3 (140-440); Red Blood Count 4.89 M/mm3 (3.65-5.03); Red Cell Distribution Width 14.4 % (13.2-15.2)
--- NOTE | 2018-11-20 08:41 | Progress Note ---
Assessment and Plan Cultures: Blood culture 11/10/2018 no growth Surgical culture 11/18/18: no growth to date Assessment: 33 y/o male with history of obesity and diverticulosis; admitted on 11/10/2018 due to abdominal pain associated with chills and night sweats for 5 days: 1) Sepsis: Improved. Leukocytosis trending down. No fevers. Blood cultures show no growth. Etiology most likely ruptured diverticulitis with an abscess. CRP- 22.20. 2) Ruptured diverticulitis with an abscess: CT abdomen showed an 4.7x4.5 cm gas/fluid collection in lower mesenteric fat. Repeat CT shows interval increase in the size of the fluid collection of the upper pelvis/lower abdomen region most likely representing a sigmoid diverticular abscess. s/p .CT guided drainage of the sigmoid diverticular abscess/fluid collection Surgical cultures show no growth thus far. Recommendations: -follow up OR cultures from CT guided drainage -continue Zosyn 4.5g IV every 8 hours, D6 -Anticipate discharge on Augmentin 875mg PO BID until 11-24-18 [facility] M: [id number] O:[phone] Subjective Date of service: 11/20/18 Interval history: Patient seen and examined. Denied abdominal pain or SOB. Tolerating solid foods. No fevers, Objective - Exam Narrative Exam: General appearance: Alert in NAD, conversant Eyes: anicteric sclerae, moist conjunctivae; no lid-lag; PERRLA HENT: Atraumatic; oropharynx clear with moist mucous membranes and no mucosal ulcerations/no oral thrush; normal hard and soft palate. Normal external ears. Neck: Trachea midline; supple, no thyromegaly or lymphadenopathy Lungs: CTA, with normal respiratory effort and no intercostal retractions CV: RRR, no murmurs Abdomen: Soft, mild diffuse tenderness s/p CT guided drainage of the sigmoid diverticular abscess, + Wound drain with minimal sanguineous drainage Extremities: No peripheral edema or extremity lymphadenopathy Skin: Normal temperature, turgor and texture; no rash, ulcers or subcutaneous nodules Psych: Appropriate affect, alert and oriented to person, place and time. Neuro: alert and oriented x 3. Moving all extermities - Constitutional Vitals: Vital Signs Temp Pulse Resp BP Pulse Ox 98.4 F 72 18 111/69 96 11/20/18 07:20 11/20/18 07:20 11/20/18 07:20 11/20/18 07:20 11/20/18 07:20 Temperature -Last 24 Hours Temperature 98.4 F Temperature 98.0 F Temperature 97.6 F Temperature 98.0 F Temperature 99.0 F Temperature 97.8 F - Labs CBC & Chem 7: 11/20/18 04:19 11/13/18 07:55 Labs: Abnormal lab results 11/20/18 Range/Units 04:19 WBC 13.1 H (4.5-11.0) K/mm3 Baso # 0.2 H (0.0-0.1) K/mm3 Seg Neutrophils # 8.7 H (1.8-7.7) K/mm3
[2018-11-20] MEDS: HABITROL TD SCH (09:11)
[2018-11-20] MEDS: LOVENOX SUB-Q SCH (09:12)
[2018-11-20] MEDS: SODIUM CHLORIDE FLUSH SYRINGE 10 ML IV SCH (09:13)
--- NOTE | 2018-11-20 10:06 | Progress Note ---
Assessment and Plan Pt doing well without compl. leena full liq diet neg drainage from pigtail drain Abd soft, non tender wbc finally going down surgically stable advance to solid high fiber diet antibiotics as per ID final cults pending Objective Vital Signs - 12hr 11/19/18 11/20/18 11/20/18 23:54 04:37 07:20 Temperature 97.6 F 98.0 F 98.4 F Pulse Rate 72 68 72 Respiratory 18 18 18 Rate Blood Pressure 110/57 116/69 Blood Pressure 111/69 [Right] O2 Sat by Pulse 97 97 96 Oximetry 11/20/18 11/20/18 11/20/18 08:00 08:40 08:56 Temperature 98.4 F Pulse Rate 78 72 Respiratory 18 Rate Blood Pressure Blood Pressure 114/59 [Right] O2 Sat by Pulse 96 97 97 Oximetry - Labs 11/20/18 04:19 11/13/18 07:55
--- NOTE | 2018-11-20 10:10 | Progress Note ---
<BLANCA JOSEPH - Last Filed: 11/20/18 14:00> Assessment and Plan Assessment and plan: 33-year-old male with history of diverticulitis presented to the ED on 11/10 with complaints of abdominal pain that started 5 days ago. Pain is in the lower quadrant which he describes as a sharp pain, intermittent in 4 hours, intensity 8/10, no radiation, better with pain medications given. He did place a subjective fever chills, no nausea vomiting. The patient was seen at [facility] on 11/10 and was admitted, but left AMA because he stated he "flipped out". CT abdomen showed 4.7x4.5 cm Contained Abscess, within the mesenteric fat, Perforated, Sigmoid Diverticlum, moderately large umbilical hernia. He was admitted to the surgical floor. Diverticular Abscess with Microperforation Initial CT on 11/10 showed 4.7x4.5 cm Contained Abscess, within the mesenteric fat, Perforated, Sigmoid Diverticlum, moderately large umbilical hernia. Repeat CT shows interval increase in the size of the fluid collection of the upper pelvis/lower abdomen region most likely representing a sigmoid diver ticular abscess. S/P CT guided abscess drain on 11/18- 70 ml of purulent fluid with old blood removed Cultures pending Able to tolerate full liquid diet Diet advance to solid high fiber diet per general surgery Gen. surgery following and managing Sepsis due to diverticulitis Leukocytosis trending down at 13.1 ( down from 15.9 yesterday) Afebrile Continue Zosyn Day 6 ID following and managing Peritoneal irritation Continue ZosynDay 6 Hypoglycemia Continue POC BG monitoring Continue D5 1/2 NS Disposition Plan: d/c to home once medically cleared History Interval history: Patient is seen today on the surgical floor. He was able to tolerate full liqu id diet. At the time of my examination, pt is awake, alert and sitting up in bed. No acute overnight events Hospitalist Physical - Physical exam Narrative exam: General appearance: Present: no acute distress - EENT Eyes: Present: PERRL, EOM intact ENT: hearing intact, clear oral mucosa, dentition normal - Neck Neck: Present: supple, normal ROM - Respiratory Respiratory effort: normal Respiratory: bilateral: CTA - Cardiovascular Heart rate: 72 Rhythm: regular (beats per minute) Heart Sounds: Present: S1 & S2 - Extremities Extremities: pulses intact, pulses symmetrical, No edema - Abdominal General gastrointestinal: soft, tender, hypoactive bowel sounds - Integumentary Integumentary: Present: warm, dry - Psychiatric Psychiatric: memory intact, cooperative - Neurologic Neurologic: CNII-XII intact, moves all extremities - Constitutional Vitals: Temp Pulse Resp BP Pulse Ox 98.4 F 72 18 114/59 97 11/20/18 08:00 11/20/18 08:40 11/20/18 08:00 11/20/18 08:00 11/20/18 08:56 General appearance: Present: no acute distress, disheveled Results - Labs CBC & Chem 7: 11/20/18 04:19 11/13/18 07:55 Labs: Laboratory Last Values WBC 13.1 K/mm3 (4.5-11.0) H 11/20/18 04:19 RBC 4.89 M/mm3 (3.65-5.03) 11/20/18 04:19 Hgb 13.9 gm/dl (11.8-15.2) 11/20/18 04:19 Hct 42.6 % (35.5-45.6) 11/20/18 04:19 MCV 87 fl (84-94) 11/20/18 04:19 MCH 29 pg (28-32) 11/20/18 04:19 MCHC 33 % (32-34) 11/20/18 04:19 RDW 14.4 % (13.2-15.2) 11/20/18 04:19 Plt Count 375 K/mm3 (140-440) 11/20/18 04:19 Lymph % (Auto) 23.8 % (13.4-35.0) 11/20/18 04:19 [place] % (Auto) 5.8 % (0.0-7.3) 11/20/18 04:19 Eos % (Auto) 2.8 % (0.0-4.3) 11/20/18 04:19 Baso % (Auto) 1.2 % (0.0-1.8) 11/20/18 04:19 Lymph # 3.1 K/mm3 (1.2-5.4) 11/20/18 04:19 [place] # 0.8 K/mm3 (0.0-0.8) 11/20/18 04:19 Eos # 0.4 K/mm3 (0.0-0.4) 11/20/18 04:19 Baso # 0.2 K/mm3 (0.0-0.1) H 11/20/18 04:19 Add Manual Diff Complete 11/18/18 04:38 Total Counted 100 11/18/18 04:38 Seg Neutrophils % 66.4 % (40.0-70.0) 11/20/18 04:19 Seg Neuts % (Manual) 64.0 % (40.0-70.0) 11/18/18 04:38 Band Neutrophils % 0 % 11/18/18 04:38 Lymphocytes % (Manual) 23.0 % (13.4-35.0) 11/18/18 04:38 Reactive Lymphs % (Man) 0 % 11/18/18 04:38 Monocytes % (Manual) 8.0 % (0.0-7.3) H 11/18/18 04:38 Eosinophils % (Manual) 3.0 % (0.0-4.3) 11/18/18 04:38 Basophils % (Manual) 2.0 % (0.0-1.8) H 11/18/18 04:38 Metamyelocytes % 0 % 11/18/18 04:38 Myelocytes % 0 % 11/18/18 04:38 Promyelocytes % 0 % 11/18/18 04:38 Blast Cells % 0 % 11/18/18 04:38 Nucleated RBC % Not Reportable 11/18/18 04:38 Seg Neutrophils # 8.7 K/mm3 (1.8-7.7) H 11/20/18 04:19 Seg Neutrophils # Man 10.2 K/mm3 (1.8-7.7) H 11/18/18 04:38 Band Neutrophils # 0.0 K/mm3 11/18/18 04:38 Lymphocytes # (Manual) 3.7 K/mm3 (1.2-5.4) 11/18/18 04:38 Abs React Lymphs (Man) 0.0 K/mm3 11/18/18 04:38 Monocytes # (Manual) 1.3 K/mm3 (0.0-0.8) H 11/18/18 04:38 Eosinophils # (Manual) 0.5 K/mm3 (0.0-0.4) H 11/18/18 04:38 Basophils # (Manual) 0.3 K/mm3 (0.0-0.1) H 11/18/18 04:38 Metamyelocytes # 0.0 K/mm3 11/18/18 04:38 Myelocytes # 0.0 K/mm3 11/18/18 04:38 Promyelocytes # 0.0 K/mm3 11/18/18 04:38 Blast Cells # 0.0 K/mm3 11/18/18 04:38 WBC Morphology Not Reportable 11/18/18 04:38 Hypersegmented Neuts Not Reportable 11/18/18 04:38 Hyposegmented Neuts Not Reportable 11/18/18 04:38 Hypogranular Neuts Not Reportable 11/18/18 04:38 Smudge Cells Not Reportable 11/18/18 04:38 Toxic Granulation Not Reportable 11/18/18 04:38 Toxic Vacuolation Not Reportable 11/18/18 04:38 Dohle Bodies Not Reportable 11/18/18 04:38 Pelger-Huet Anomaly Not Reportable 11/18/18 04:38 Manuel Rods Not Reportable 11/18/18 04:38 Platelet Estimate Not Reportable 11/18/18 04:38 Clumped Platelets Not Reportable 11/18/18 04:38 Plt Clumps, EDTA Not Reportable 11/18/18 04:38 Large Platelets Not Reportable 11/18/18 04:38 Giant Platelets Not Reportable 11/18/18 04:38 Platelet Satelliting Not Reportable 11/18/18 04:38 Plt Morphology Comment Not Reportable 11/18/18 04:38 RBC Morphology Normal 11/18/18 04:38 Dimorphic RBCs Not Reportable 11/18/18 04:38 Polychromasia Not Reportable 11/18/18 04:38 Hypochromasia Not Reportable 11/18/18 04:38 Poikilocytosis Not Reportable 11/18/18 04:38 Anisocytosis Not Reportable 11/18/18 04:38 Microcytosis Not Reportable 11/18/18 04:38 Macrocytosis Not Reportable 11/18/18 04:38 Spherocytes Not Reportable 11/18/18 04:38 Pappenheimer Bodies Not Reportable 11/18/18 04:38 Sickle Cells Not Reportable 11/18/18 04:38 Target Cells Not Reportable 11/18/18 04:38 Tear Drop Cells Not Reportable 11/18/18 04:38 Ovalocytes Not Reportable 11/18/18 04:38 Helmet Cells Not Reportable 11/18/18 04:38 Petit-[place] Bodies Not Reportable 11/18/18 04:38 [place] Rings Not Reportable 11/18/18 04:38 Inez Cells Not Reportable 11/18/18 04:38 Bite Cells Not Reportable 11/18/18 04:38 Crenated Cell Not Reportable 11/18/18 04:38 Elliptocytes Not Reportable 11/18/18 04:38 Acanthocytes (Spur) Not Reportable 11/18/18 04:38 Rouleaux Not Reportable 11/18/18 04:38 Hemoglobin C Crystals Not Reportable 11/18/18 04:38 Schistocytes Not Reportable 11/18/18 04:38 Malaria parasites Not Reportable 11/18/18 04:38 Hood Bodies Not Reportable 11/18/18 04:38 Hem Pathologist Commnt No 11/18/18 04:38 PT 13.5 Sec. (12.2-14.9) 11/18/18 08:36 INR 0.97 (0.87-1.13) 11/18/18 08:36 APTT 27.0 Sec. (24.2-36.6) 11/18/18 08:36 Sodium 138 mmol/L (137-145) 11/13/18 07:55 Potassium 3.8 mmol/L (3.6-5.0) 11/13/18 07:55 Chloride 100.6 mmol/L (98-107) 11/13/18 07:55 Carbon Dioxide 20 mmol/L (22-30) L 11/13/18 07:55 Anion Gap 21 mmol/L 11/13/18 07:55 BUN 7 mg/dL (9-20) L 11/13/18 07:55 Creatinine 0.6 mg/dL (0.8-1.5) L 11/13/18 07:55 Estimated GFR > 60 ml/min 11/13/18 07:55 BUN/Creatinine Ratio 12 % 11/13/18 07:55 Glucose 63 mg/dL (75-100) L 11/13/18 07:55 POC Glucose 54 (70-105) L 11/17/18 17:15 Lactic Acid 0.70 mmol/L (0.7-2.0) 11/10/18 19:50 Calcium 8.8 mg/dL (8.4-10.2) 11/13/18 07:55 Total Bilirubin 0.90 mg/dL (0.1-1.2) 11/10/18 15:04 Direct Bilirubin 0.4 mg/dL (0-0.2) H 11/10/18 15:04 Indirect Bilirubin 0.5 mg/dL 11/10/18 15:04 AST 16 units/L (5-40) 11/10/18 15:04 ALT 14 units/L (7-56) 11/10/18 15:04 Alkaline Phosphatase 78 units/L (35-129) 11/10/18 15:04 C-Reactive Protein 22.20 mg/dL (0.00-1.30) H 11/11/18 07:30 Total Protein 7.5 g/dL (6.3-8.2) 11/10/18 15:04 Albumin 3.5 g/dL (3.9-5) L 11/10/18 15:04 Albumin/Globulin Ratio 0.9 % 11/10/18 15:04 Lipase 47 units/L (13-60) 11/10/18 15:04 Urine Color Giselle (Yellow) 11/10/18 17:46 Urine Turbidity Clear (Clear) 11/10/18 17:46 Urine pH 6.0 (5.0-7.0) 11/10/18 17:46 Ur Specific [place] 1.043 (1.003-1.030) H 11/10/18 17:46 Urine Protein 100 mg/dl mg/dL (Negative) 11/10/18 17:46 Urine Glucose (UA) Neg mg/dL (Negative) 11/10/18 17:46 Urine Ketones 20 mg/dL (Negative) 11/10/18 17:46 Urine Blood Sm (Negative) 11/10/18 17:46 Urine Nitrite Neg (Negative) 11/10/18 17:46 Urine Bilirubin Sm (Negative) 11/10/18 17:46 Urine Ictotest Positive (Negative) 11/10/18 17:46 Urine Urobilinogen 4.0 mg/dL (<2.0) 11/10/18 17:46 Ur Leukocyte Esterase Neg (Negative) 11/10/18 17:46 Urine WBC (Auto) 8.0 /HPF (0.0-6.0) H 11/10/18 17:46 Urine RBC (Auto) 12.0 /HPF (0.0-6.0) 11/10/18 17:46 U Epithel Cells (Auto) 3.0 /HPF (0-13.0) 11/10/18 17:46 Urine Bacteria (Auto) 1+ /HPF (Negative) 11/10/18 17:46 Urine Mucus 3+ /HPF 11/10/18 17:46 Urine Yeast (Budding) 2+ /HPF 11/10/18 17:46 Urine Opiates Screen Presumptive positive 11/11/18 Unknown Urine Methadone Screen Presumptive negative 11/11/18 Unknown Ur Barbiturates Screen Presumptive negative 11/11/18 Unknown Ur Phencyclidine Scrn Presumptive negative 11/11/18 Unknown Ur Amphetamines Screen Presumptive negative 11/11/18 Unknown U Benzodiazepines Scrn Presumptive negative 11/11/18 Unknown Urine Cocaine Screen Presumptive negative 11/11/18 Unknown U Marijuana (THC) Screen Presumptive negative 11/11/18 Unknown Drugs of Abuse Note Disclamer 11/11/18 Unknown Active Medications - Current Medications Current Medications: Generic Name Dose Route Start Last Admin Trade Name Freq PRN Reason Stop Dose Admin Acetaminophen 650 mg 11/10/18 22:43 Tylenol PO Q4H PRN Pain MILD(1-3)/Fever >100.5/CORTES Enoxaparin Sodium 40 mg 11/11/18 10:00 11/20/18 09:12 Lovenox SUB-Q 40 mg QDAY FLACA Administration Dextrose/Sodium Chloride 1,000 mls @ 100 mls/hr 11/13/18 17:00 11/20/18 02:20 D5/0.45ns IV 100 mls/hr DIRECT FLACA Administration Piperacillin Sod/Tazobactam Sod 4.5 gm in 100 mls @ 200 mls/hr 11/15/18 18:00 11/20/18 09:12 Zosyn/Ns 4.5gm/100ml IV 200 mls/hr Q8H FLACA Administration Protocol Lorazepam 1 mg 11/12/18 10:00 11/19/18 21:20 Ativan IV 1 mg QHS PRN Administration Insomnia Morphine Sulfate 2 mg 11/10/18 22:43 11/20/18 06:58 Morphine IV 2 mg Q4H PRN Administration Pain, Moderate (4-6) Nicotine 21 mg 11/11/18 10:00 11/20/18 09:11 Habitrol TD 21 mg QDAY FLACA Administration Ondansetron HCl 4 mg 11/10/18 22:43 11/18/18 21:37 Zofran IV 4 mg Q4H PRN Administration Nausea And Vomiting Sodium Chloride 10 ml 11/11/18 10:00 11/20/18 09:13 Sodium Chloride Flush Syringe 10 Ml IV 10 ml BID FLACA Administration Sodium Chloride 10 ml 11/10/18 22:43 11/19/18 21:27 Sodium Chloride Flush Syringe 10 Ml IV 10 ml PRN PRN Administration LINE FLUSH Nutrition/Malnutrition Assess - Dietary Evaluation Nutrition/Malnutrition Findings: Nutrition Notes Start: 11/11/18 13:58 Freq: Status: Active Protocol: Document 11/15/18 15:35 RM (Rec: 11/15/18 15:45 RM [id number]) Nutrition Notes Initial or Follow up Reassessment Current Diagnosis Sepsis Other Pertinent Diagnosis Diverticular abscess with microperforation Current Diet Full liquid Labs/Tests Reviewed Pertinent Medications Reviewed Height 5 ft 11 in Weight 95 kg [place] Body Weight (kg) 78.18 BMI 29.2 Subjective/Other Information Pt asleep at time of visit. Recorded PO intake 100% X 2 meals. Percent of energy/protein needs met: 47%/32% Burn Absent Trauma Absent #1 Nutrition Diagnosis Inadequate oral intake As Evidenced by Signs and Symptoms pt drinking 100% of full liquid diet Diagnosis Progress(for reassessment Improved documentation) Is patient on ventilator? No Is Patient Ambulatory and/or Out of Bed Yes REE-([facility] Fredyla-ambulatory/OOB) [ 2485.769 NUTR.MSJOOB] Calculation Used for Recommendations [facility] Additional Notes Protein Needs: 117-156g (1.5- 2g/kg IBW) Fluid Needs: 1 ml/kcal Nutrition Intervention Change Diet Order: Advance diet when medically able Add Supplement/Snack (indicate name/kcal Ensure Enlive 1 daily /protein ) Provides kCal: 350 Provides Protein (gm) 20 Goal #1 Advance diet to meet nutrient needs Anticipated Discharge Needs: Unable to identify at this time Follow-Up By: 11/20/18 Additional Comments Follow for PO and ONS intakes <VIRGINIA HORTA M - Last Filed: 11/23/18 18:40> Assessment and Plan Assessment and plan: I saw and evaluated the patient. I agree with the findings and the plan of care as documented in the Nurse Practitioner's~note, with the following corrections and additions. cont abx, ADAT per GS, drain removal per GS History Interval history: denies abdominal pain, fever, sob or cp Hospitalist Physical - Constitutional Vitals: Temp Pulse Resp BP Pulse Ox 97.6 F 85 18 168/68 96 11/22/18 12:00 11/22/18 12:00 11/22/18 12:00 11/22/18 12:00 11/22/18 12:00 Results - Labs CBC & Chem 7: 11/21/18 07:03 11/13/18 07:55 Labs: Laboratory Last Values WBC 12.7 K/mm3 (4.5-11.0) H 11/21/18 07:03 RBC 4.72 M/mm3 (3.65-5.03) 11/21/18 07:03 Hgb 13.7 gm/dl (11.8-15.2) 11/21/18 07:03 Hct 41.1 % (35.5-45.6) 11/21/18 07:03 MCV 87 fl (84-94) 11/21/18 07:03 MCH 29 pg (28-32) 11/21/18 07:03 MCHC 33 % (32-34) 11/21/18 07:03 RDW 14.2 % (13.2-15.2) 11/21/18 07:03 Plt Count 390 K/mm3 (140-440) 11/21/18 07:03 Lymph % (Auto) 22.8 % (13.4-35.0) 11/21/18 07:03 [place] % (Auto) 6.7 % (0.0-7.3) 11/21/18 07:03 Eos % (Auto) 2.8 % (0.0-4.3) 11/21/18 07:03 Baso % (Auto) 1.1 % (0.0-1.8) 11/21/18 07:03 Lymph # 2.9 K/mm3 (1.2-5.4) 11/21/18 07:03 [place] # 0.9 K/mm3 (0.0-0.8) H 11/21/18 07:03 Eos # 0.4 K/mm3 (0.0-0.4) 11/21/18 07:03 Baso # 0.1 K/mm3 (0.0-0.1) 11/21/18 07:03 Add Manual Diff Complete 11/18/18 04:38 Total Counted 100 11/18/18 04:38 Seg Neutrophils % 66.6 % (40.0-70.0) 11/21/18 07:03 Seg Neuts % (Manual) 64.0 % (40.0-70.0) 11/18/18 04:38 Band Neutrophils % 0 % 11/18/18 04:38 Lymphocytes % (Manual) 23.0 % (13.4-35.0) 11/18/18 04:38 Reactive Lymphs % (Man) 0 % 11/18/18 04:38 Monocytes % (Manual) 8.0 % (0.0-7.3) H 11/18/18 04:38 Eosinophils % (Manual) 3.0 % (0.0-4.3) 11/18/18 04:38 Basophils % (Manual) 2.0 % (0.0-1.8) H 11/18/18 04:38 Metamyelocytes % 0 % 11/18/18 04:38 Myelocytes % 0 % 11/18/18 04:38 Promyelocytes % 0 % 11/18/18 04:38 Blast Cells % 0 % 11/18/18 04:38 Nucleated RBC % Not Reportable 11/18/18 04:38 Seg Neutrophils # 8.5 K/mm3 (1.8-7.7) H 11/21/18 07:03 Seg Neutrophils # Man 10.2 K/mm3 (1.8-7.7) H 11/18/18 04:38 Band Neutrophils # 0.0 K/mm3 11/18/18 04:38 Lymphocytes # (Manual) 3.7 K/mm3 (1.2-5.4) 11/18/18 04:38 Abs React Lymphs (Man) 0.0 K/mm3 11/18/18 04:38 Monocytes # (Manual) 1.3 K/mm3 (0.0-0.8) H 11/18/18 04:38 Eosinophils # (Manual) 0.5 K/mm3 (0.0-0.4) H 11/18/18 04:38 Basophils # (Manual) 0.3 K/mm3 (0.0-0.1) H 11/18/18 04:38 Metamyelocytes # 0.0 K/mm3 11/18/18 04:38 Myelocytes # 0.0 K/mm3 11/18/18 04:38 Promyelocytes # 0.0 K/mm3 11/18/18 04:38 Blast Cells # 0.0 K/mm3 11/18/18 04:38 WBC Morphology Not Reportable 11/18/18 04:38 Hypersegmented Neuts Not Reportable 11/18/18 04:38 Hyposegmented Neuts Not Reportable 11/18/18 04:38 Hypogranular Neuts Not Reportable 11/18/18 04:38 Smudge Cells Not Reportable 11/18/18 04:38 Toxic Granulation Not Reportable 11/18/18 04:38 Toxic Vacuolation Not Reportable 11/18/18 04:38 Dohle Bodies Not Reportable 11/18/18 04:38 Pelger-Huet Anomaly Not Reportable 11/18/18 04:38 Manuel Rods Not Reportable 11/18/18 04:38 Platelet Estimate Not Reportable 11/18/18 04:38 Clumped Platelets Not Reportable 11/18/18 04:38 Plt Clumps, EDTA Not Reportable 11/18/18 04:38 Large Platelets Not Reportable 11/18/18 04:38 Giant Platelets Not Reportable 11/18/18 04:38 Platelet Satelliting Not Reportable 11/18/18 04:38 Plt Morphology Comment Not Reportable 11/18/18 04:38 RBC Morphology Normal 11/18/18 04:38 Dimorphic RBCs Not Reportable 11/18/18 04:38 Polychromasia Not Reportable 11/18/18 04:38 Hypochromasia Not Reportable 11/18/18 04:38 Poikilocytosis Not Reportable 11/18/18 04:38 Anisocytosis Not Reportable 11/18/18 04:38 Microcytosis Not Reportable 11/18/18 04:38 Macrocytosis Not Reportable 11/18/18 04:38 Spherocytes Not Reportable 11/18/18 04:38 Pappenheimer Bodies Not Reportable 11/18/18 04:38 Sickle Cells Not Reportable 11/18/18 04:38 Target Cells Not Reportable 11/18/18 04:38 Tear Drop Cells Not Reportable 11/18/18 04:38 Ovalocytes Not Reportable 11/18/18 04:38 Helmet Cells Not Reportable 11/18/18 04:38 Petit-[place] Bodies Not Reportable 11/18/18 04:38 [place] Rings Not Reportable 11/18/18 04:38 Inez Cells Not Reportable 11/18/18 04:38 Bite Cells Not Reportable 11/18/18 04:38 Crenated Cell Not Reportable 11/18/18 04:38 Elliptocytes Not Reportable 11/18/18 04:38 Acanthocytes (Spur) Not Reportable 11/18/18 04:38 Rouleaux Not Reportable 11/18/18 04:38 Hemoglobin C Crystals Not Reportable 11/18/18 04:38 Schistocytes Not Reportable 11/18/18 04:38 Malaria parasites Not Reportable 11/18/18 04:38 Hood Bodies Not Reportable 11/18/18 04:38 Hem Pathologist Commnt No 11/18/18 04:38 PT 13.5 Sec. (12.2-14.9) 11/18/18 08:36 INR 0.97 (0.87-1.13) 11/18/18 08:36 APTT 27.0 Sec. (24.2-36.6) 11/18/18 08:36 Sodium 138 mmol/L (137-145) 11/13/18 07:55 Potassium 3.8 mmol/L (3.6-5.0) 11/13/18 07:55 Chloride 100.6 mmol/L (98-107) 11/13/18 07:55 Carbon Dioxide 20 mmol/L (22-30) L 11/13/18 07:55 Anion Gap 21 mmol/L 11/13/18 07:55 BUN 7 mg/dL (9-20) L 11/13/18 07:55 Creatinine 0.6 mg/dL (0.8-1.5) L 11/13/18 07:55 Estimated GFR > 60 ml/min 11/13/18 07:55 BUN/Creatinine Ratio 12 % 11/13/18 07:55 Glucose 63 mg/dL (75-100) L 11/13/18 07:55 POC Glucose 54 (70-105) L 11/17/18 17:15 Lactic Acid 0.70 mmol/L (0.7-2.0) 11/10/18 19:50 Calcium 8.8 mg/dL (8.4-10.2) 11/13/18 07:55 Total Bilirubin 0.90 mg/dL (0.1-1.2) 11/10/18 15:04 Direct Bilirubin 0.4 mg/dL (0-0.2) H 11/10/18 15:04 Indirect Bilirubin 0.5 mg/dL 11/10/18 15:04 AST 16 units/L (5-40) 11/10/18 15:04 ALT 14 units/L (7-56) 11/10/18 15:04 Alkaline Phosphatase 78 units/L (35-129) 11/10/18 15:04 C-Reactive Protein 22.20 mg/dL (0.00-1.30) H 11/11/18 07:30 Total Protein 7.5 g/dL (6.3-8.2) 11/10/18 15:04 Albumin 3.5 g/dL (3.9-5) L 11/10/18 15:04 Albumin/Globulin Ratio 0.9 % 11/10/18 15:04 Lipase 47 units/L (13-60) 11/10/18 15:04 Urine Color Giselle (Yellow) 11/10/18 17:46 Urine Turbidity Clear (Clear) 11/10/18 17:46 Urine pH 6.0 (5.0-7.0) 11/10/18 17:46 Ur Specific [place] 1.043 (1.003-1.030) H 11/10/18 17:46 Urine Protein 100 mg/dl mg/dL (Negative) 11/10/18 17:46 Urine Glucose (UA) Neg mg/dL (Negative) 11/10/18 17:46 Urine Ketones 20 mg/dL (Negative) 11/10/18 17:46 Urine Blood Sm (Negative) 11/10/18 17:46 Urine Nitrite Neg (Negative) 11/10/18 17:46 Urine Bilirubin Sm (Negative) 11/10/18 17:46 Urine Ictotest Positive (Negative) 11/10/18 17:46 Urine Urobilinogen 4.0 mg/dL (<2.0) 11/10/18 17:46 Ur Leukocyte Esterase Neg (Negative) 11/10/18 17:46 Urine WBC (Auto) 8.0 /HPF (0.0-6.0) H 11/10/18 17:46 Urine RBC (Auto) 12.0 /HPF (0.0-6.0) 11/10/18 17:46 U Epithel Cells (Auto) 3.0 /HPF (0-13.0) 11/10/18 17:46 Urine Bacteria (Auto) 1+ /HPF (Negative) 11/10/18 17:46 Urine Mucus 3+ /HPF 11/10/18 17:46 Urine Yeast (Budding) 2+ /HPF 11/10/18 17:46 Urine Opiates Screen Presumptive positive 11/11/18 Unknown Urine Methadone Screen Presumptive negative 11/11/18 Unknown Ur Barbiturates Screen Presumptive negative 11/11/18 Unknown Ur Phencyclidine Scrn Presumptive negative 11/11/18 Unknown Ur Amphetamines Screen Presumptive negative 11/11/18 Unknown U Benzodiazepines Scrn Presumptive negative 11/11/18 Unknown Urine Cocaine Screen Presumptive negative 11/11/18 Unknown U Marijuana (THC) Screen Presumptive negative 11/11/18 Unknown Drugs of Abuse Note Disclamer 11/11/18 Unknown Nutrition/Malnutrition Assess - Dietary Evaluation Nutrition/Malnutrition Findings: Nutrition Notes Start: 11/11/18 13:58 Freq: Status: Discharge Protocol: Document 11/20/18 10:07 EB (Rec: 11/20/18 10:12 [id number]) Co-Sign 11/20/18 10:07 LP Nutrition Notes Initial or Follow up Reassessment Current Diagnosis Sepsis Other Pertinent Diagnosis Diverticular abscess with microperforation Current Diet Regular diet with high fiber Labs/Tests Reviewed Pertinent Medications Reviewed Height 5 ft 11 in Weight 95 kg [place] Body Weight (kg) 78.18 BMI 29.2 Subjective/Other Information Pt awake and just finished breakfast at time of visit. Pt reports no pain when eating, no N/V, and states he is still very hungry after [place] diet meal. Pt consumes 100% of [place] diet consistently. Pt diet advanced to regular diet with high fiber today. Percent of energy/protein needs met: 46%/32% Burn Absent Trauma Absent GI Symptoms None Current % PO Good (75-100%) #1 Nutrition Diagnosis Inadequate oral intake As Evidenced by Signs and Symptoms pt drinking 100% of full liquid diet Diagnosis Progress(for reassessment Improved documentation) Is patient on ventilator? No Is Patient Ambulatory and/or Out of Bed Yes REE-([place] or-ambulatory/OOB) [ 2485.769 NUTR.MSJOOB] [facility] Additional Notes Protein Needs: 117-156g (1.5- 2g/kg IBW) Fluid Needs: 1 ml/kcal Nutrition Intervention Change Diet Order: Advance diet when medically able Goal #1 Advance diet to meet nutrient needs Anticipated Discharge Needs: Unable to identify at this time Follow-Up By: 11/26/18 Additional Comments F/u: New diet tolerance
[2018-11-20] MEDS: ATIVAN IV PRN (20:55)
[2018-11-21] MEDS: D5/0.45NS 1,000 ML IV SCH (00:32)
[2018-11-21] MEDS: MORPHINE IV PRN ×4 (01:04→21:10)
[2018-11-21] MEDS: SODIUM CHLORIDE FLUSH SYRINGE 10 ML IV SCH ×3 (01:09→21:17)
[2018-11-21] MEDS: ZOSYN/NS 4.5GM/100ML 4.5 GM/100 ML VIAL IV SCH ×3 (04:39→17:18)
[2018-11-21 07:32] LABS: Basophils # (Auto) 0.1 K/mm3 (0.0-0.1); Basophils % (Auto) 1.1 % (0.0-1.8); Eosinophils # (Auto) 0.4 K/mm3 (0.0-0.4); Eosinophils % (Auto) 2.8 % (0.0-4.3); Hematocrit 41.1 % (35.5-45.6); Hemoglobin 13.7 gm/dl (11.8-15.2); Lymphocytes # (Auto) 2.9 K/mm3 (1.2-5.4); Lymphocytes % (Auto) 22.8 % (13.4-35.0); Mean Corpuscular HGB Conc 33 % (32-34); Mean Corpuscular Volume 87 fl (84-94); Monocytes # (Auto) 0.9 K/mm3 (0.0-0.8); Monocytes % (Auto) 6.7 % (0.0-7.3); Platelet Count 390 K/mm3 (140-440); Red Blood Count 4.72 M/mm3 (3.65-5.03); Red Cell Distribution Width 14.2 % (13.2-15.2)
[2018-11-21] MEDS: LOVENOX SUB-Q SCH (09:05)
[2018-11-21] MEDS: HABITROL TD SCH (09:06)
--- NOTE | 2018-11-21 10:05 | Discharge Summary ---
<BLANCA JOSEPH - Last Filed: 11/21/18 13:54> Providers - Providers Date of Admission: 11/10/18 21:50 Date of discharge: 11/21/18 Attending physician: VIRGINIA HORTA MD 11/10/18 20:48 Consult to Physician [CONS] Stat Comment: Consulting Provider: TRA LEMON Physician Instructions: Reason For Exam: intra-abdominal abscess complicated sigmoid divert 11/11/18 07:33 Consult to Physician [CONS] Routine Comment: Consulting Provider: YU WALTERS Physician Instructions: Reason For Exam: ruptured diverticulitis 11/13/18 11:10 Consult to Physician [CONS] Routine Comment: CONSULT COMPLETED - RIGOBERTO Consulting Provider: LILLI MORTENSEN Physician Instructions: Reason For Exam: diverticulitis 11/15/18 21:19 Consult to Physician [CONS] Routine Comment: Consulting Provider: ARVIN RUST Physician Instructions: Reason For Exam: pelvic abscess - CT drainage [facility] Reason for admission: Diverticular Abscess with Microperforation Condition: Good Hospital course: 33-year-old male with history of diverticulitis presented to the ED on 11/10 with complaints of abdominal pain that started 5 days ago. Pain is in the lower quadrant which he describes as a sharp pain, intermittent in 4 hours, intensity 8/10, no radiation, better with pain medications given. He did place a subjective fever chills, no nausea vomiting. The patient was seen at [facility] on 11/10 and was admitted, but left AMA because he stated he "flipped out". CT abdomen showed 4.7x4.5 cm Contained Abscess, within the mesenteric fat, Perforated, Sigmoid Diverticlum, moderately large umbilical hernia. He was admitted to the surgical floor. He was kept NPO to allow for bowel rest. Repeat CT showed interval increase in the size of the fluid collection of the upper pelvis/lower abdomen region most likely representing a sigmoid diverticular abscess. On 11/[address] guided abscess drain; 70 ml of purulent fluid with old blood was removed. He was treated with IV abx and transitioned to po abx at discharge. He was able to tolerate clears and his diet has continued o advance to high fiber solid diet. Diagnosis Diverticular Abscess with Microperforation Sepsis due to diverticulitis Peritoneal irritation Hypoglycemia Disposition: DC-01 TO HOME OR SELFCARE Time spent for discharge: 33 minutes Core Measure Documentation - Palliative Care Palliative Care/ Comfort Measures: Not Applicable - Core Measures Any of the following diagnoses?: none - VTE Discharge Requirements Deep Vein Thrombosis/Pulmonary Embolism Present on Admission: No Contraindication No Overlap Therapy order at DC: Not Indicated Exam - Physical Exam Narrative exam: General appearance: Present: no acute distress - EENT Eyes: Present: PERRL, EOM intact ENT: hearing intact, clear oral mucosa, dentition normal - Neck Neck: Present: supple, normal ROM - Respiratory Respiratory effort: normal Respiratory: bilateral: CTA - Cardiovascular Heart rate: 72 Rhythm: regular (beats per minute) Heart Sounds: Present: S1 & S2 - Extremities Extremities: pulses intact, pulses symmetrical, No edema - Abdominal General gastrointestinal: soft, tender, hypoactive bowel sounds - Integumentary Integumentary: Present: warm, dry - Psychiatric Psychiatric: memory intact, cooperative - Neurologic Neurologic: CNII-XII intact, moves all extremities - Constitutional Vitals: Temp Pulse Resp BP Pulse Ox 98.8 F 89 16 129/53 96 11/21/18 07:00 11/21/18 07:00 11/21/18 07:00 11/21/18 07:00 11/21/18 07:00 Plan Diet: other (high fiber) Follow up with: SASHA MAALTONAWILLIAMS MD KELLY [Primary Care Provider] - 3-5 Days TRA LEMON MD [Staff Physician] - 7 Days Prescriptions: Amoxicillin/K Clav Tab [Augmentin 875 mg] 1 tab PO Q12HR 3 Days #7 tab Nicotine [Habitrol] 21 mg TD QDAY 30 Days #30 patch oxyCODONE /ACETAMINOPHEN [Percocet 5/325] 1 tab PO Q6HR PRN #14 tablet PRN Reason: Pain <VIRGINIA HORTA - Last Filed: 11/23/18 19:12> Providers - Providers Date of Admission: 11/10/18 21:50 Attending physician: VIRGINIA HORTA MD 11/10/18 20:48 Consult to Physician [CONS] Stat Comment: Consulting Provider: TRA LEMON Physician Instructions: Reason For Exam: intra-abdominal abscess complicated sigmoid divert 11/11/18 07:33 Consult to Physician [CONS] Routine Comment: Consulting Provider: YU WALTERS Physician Instructions: Reason For Exam: ruptured diverticulitis 11/13/18 11:10 Consult to Physician [CONS] Routine Comment: CONSULT COMPLETED - RIGOBERTO Consulting Provider: LILLI MORTENSEN Physician Instructions: Reason For Exam: diverticulitis 11/15/18 21:19 Consult to Physician [CONS] Routine Comment: Consulting Provider: ARVIN RUST Physician Instructions: Reason For Exam: pelvic abscess - CT drainage [facility] Ex[facility] - Constitutional Vitals: Temp Pulse Resp BP Pulse Ox 97.6 F 85 18 168/68 96 11/22/18 12:00 11/22/18 12:00 11/22/18 12:00 11/22/18 12:00 11/22/18 12:00
--- NOTE | 2018-11-21 10:25 | Progress Note ---
Assessment and Plan Cultures: Blood culture 11/10/2018 no growth Surgical culture 11/18/18: no growth to date Assessment: 33 y/o male with history of obesity and diverticulosis; admitted on 11/10/2018 due to abdominal pain associated with chills and night sweats for 5 days: 1) Sepsis: Improved. Leukocytosis trending down. No fevers. Blood cultures show no growth. Etiology most likely ruptured diverticulitis with an abscess. CRP- 22.20. 2) Ruptured diverticulitis with an abscess: CT abdomen showed an 4.7x4.5 cm gas/fluid collection in lower mesenteric fat. Repeat CT shows interval increase in the size of the fluid collection of the upper pelvis/lower abdomen region most likely representing a sigmoid diverticular abscess. s/p .CT guided drainage of the sigmoid diverticular abscess/fluid collection Surgical cultures show no growth thus far. Recommendations: -follow up OR cultures from CT guided drainage -continue Zosyn 4.5g IV every 8 hours, D6 -Anticipate discharge on Augmentin 875mg PO BID until 11-24-18 -Clinically stable -ID is signing off [employer] [employer] M: [id number] O:[phone] Subjective Date of service: 11/21/18 Interval history: Patient seen and examined. Denied abdominal pain or SOB. Tolerating solid foods. No fevers, Objective - Exam Narrative Exam: General appearance: Alert in NAD, conversant Eyes: anicteric sclerae, moist conjunctivae; no lid-lag; PERRLA HENT: Atraumatic; oropharynx clear with moist mucous membranes and no mucosal ulcerations/no oral thrush; normal hard and soft palate. Normal external ears. Neck: Trachea midline; supple, no thyromegaly or lymphadenopathy Lungs: CTA, with normal respiratory effort and no intercostal retractions CV: RRR, no murmurs Abdomen: Soft, mild diffuse tenderness s/p CT guided drainage of the sigmoid diverticular abscess, + Wound drain with minimal sanguineous drainage Extremities: No peripheral edema or extremity lymphadenopathy Skin: Normal temperature, turgor and texture; no rash, ulcers or subcutaneous nodules Psych: Appropriate affect, alert and oriented to person, place and time. Neuro: alert and oriented x 3. Moving all extermities - Constitutional Vitals: Vital Signs Temp Pulse Resp BP Pulse Ox 98.8 F 89 16 129/53 96 11/21/18 07:00 11/21/18 07:00 11/21/18 07:00 11/21/18 07:00 11/21/18 07:00 Temperature -Last 24 Hours Temperature 98.8 F Temperature 97.3 F Temperature 97.5 F - Labs CBC & Chem 7: 11/21/18 07:03 11/13/18 07:55 Labs: Abnormal lab results 11/21/18 Range/Units 07:03 WBC 12.7 H (4.5-11.0) K/mm3 [place] # 0.9 H (0.0-0.8) K/mm3 Seg Neutrophils # 8.5 H (1.8-7.7) K/mm3
--- NOTE | 2018-11-21 10:58 | Progress Note ---
Assessment and Plan Pt feeling well without compl. leena reg diet abd soft, non tender surgically stable may d/c from surg perspective po antibiotics as per ID d/c drain as per IR rto I wk Laboratory Tests 11/20/18 11/21/18 04:19 07:03 WBC 13.1 H 12.7 H Selected Entries 11/20/18 11/21/18 11/21/18 08:00 04:32 07:00 Temperature 98.4 F 98.8 F Respiratory 18 16 Rate Blood Pressure 129/55 Blood Pressure 114/59 [Right] Laboratory Tests 11/20/18 04:19 WBC 13.1 H Objective Vital Signs - 12hr 11/21/18 11/21/18 04:32 07:00 Temperature 97.3 F L 98.8 F Pulse Rate 89 89 Respiratory 18 16 Rate Blood Pressure 129/55 Blood Pressure 129/53 [Right] O2 Sat by Pulse 95 96 Oximetry - Labs 11/21/18 07:03 11/13/18 07:55
--- NOTE | 2018-11-21 17:21 | Event Note ---
Date: 11/21/18 If plan is to have drain removed by IR, then need CT of the abdomen and pelvis prior to removal. If plan is to have drain removed by general surgery in clinic, then management per general surgery.
--- NOTE | 2018-11-21 20:53 | Progress Note ---
<BLANCA JOSEPH - Last Filed: 11/21/18 21:00> Assessment and Plan Assessment and plan: 33-year-old male with history of diverticulitis presented to the ED on 11/10 with complaints of abdominal pain that started 5 days ago. Pain is in the lower quadrant which he describes as a sharp pain, intermittent in 4 hours, intensity 8/10, no radiation, better with pain medications given. He did place a subjective fever chills, no nausea vomiting. The patient was seen at [facility] on 11/10 and was admitted, but left AMA because he stated he "flipped out". CT abdomen showed 4.7x4.5 cm Contained Abscess, within the mesenteric fat, Perforated, Sigmoid Diverticlum, moderately large umbilical hernia. He was admitted to the surgical floor. Diverticular Abscess with Microperforation Initial CT on 11/10 showed 4.7x4.5 cm Contained Abscess, within the mesenteric fat, Perforated, Sigmoid Diverticlum, moderately large umbilical hernia. Repeat CT shows interval increase in the size of the fluid collection of the upper pelvis/lower abdomen region most likely representing a sigmoid diver ticular abscess. S/P CT guided abscess drain on 11/18- 70 ml of purulent fluid with old blood removed Abd drain placed by IR Cultures negative NGDT Diet advance to solid high fiber diet per general surgery Will require OP f/u with Dr. Hinojosa in one week Gen. surgery following and managing Sepsis due to diverticulitis Leukocytosis trending down at 12.7 ( down from 15.9) Afebrile Continue Zosyn Day 6; with plans to switch to po Augmentin 875 BID until 5/5 ID following and managing Peritoneal irritation Continue Zosyn Day 6 Hypoglycemia Continue POC BG monitoring Continue D5 1/2 NS Disposition Plan: pending ct abd/pelvis and removal of drain History Interval history: Patient is seen today on the surgical floor. He is able to tolerate high fiber solid diet. He c/o occasional abdominal, which is relieved with pain meds. He is able to ambulate independently. Denies n/v/d, dyspnea, or CP. Discharge is pending repeat CT Abd/Pelvis, so that a determination can be made whether or not abd drain will be removed by Dr. Faith prior to d/c. Hospitalist Physical - Physical exam Narrative exam: General appearance: Present: no acute distress - EENT Eyes: Present: PERRL, EOM intact ENT: hearing intact, clear oral mucosa, dentition normal - Neck Neck: Present: supple, normal ROM - Respiratory Respiratory effort: normal Respiratory: bilateral: CTA - Cardiovascular Heart rate: 72 Rhythm: regular (beats per minute) Heart Sounds: Present: S1 & S2 - Extremities Extremities: pulses intact, pulses symmetrical, No edema - Abdominal General gastrointestinal: soft, tender, hypoactive bowel sounds - Integumentary Integumentary: Present: warm, dry - Psychiatric Psychiatric: memory intact, cooperative - Neurologic Neurologic: CNII-XII intact, moves all extremities - Constitutional Vitals: Temp Pulse Resp BP Pulse Ox 97.6 F 80 20 147/76 97 11/21/18 17:00 11/21/18 17:00 11/21/18 17:00 11/21/18 17:00 11/21/18 17:00 General appearance: Present: no acute distress, disheveled Results - Labs CBC & Chem 7: 11/21/18 07:03 11/13/18 07:55 Labs: Laboratory Last Values WBC 12.7 K/mm3 (4.5-11.0) H 11/21/18 07:03 RBC 4.72 M/mm3 (3.65-5.03) 11/21/18 07:03 Hgb 13.7 gm/dl (11.8-15.2) 11/21/18 07:03 Hct 41.1 % (35.5-45.6) 11/21/18 07:03 MCV 87 fl (84-94) 11/21/18 07:03 MCH 29 pg (28-32) 11/21/18 07:03 MCHC 33 % (32-34) 11/21/18 07:03 RDW 14.2 % (13.2-15.2) 11/21/18 07:03 Plt Count 390 K/mm3 (140-440) 11/21/18 07:03 Lymph % (Auto) 22.8 % (13.4-35.0) 11/21/18 07:03 [place] % (Auto) 6.7 % (0.0-7.3) 11/21/18 07:03 Eos % (Auto) 2.8 % (0.0-4.3) 11/21/18 07:03 Baso % (Auto) 1.1 % (0.0-1.8) 11/21/18 07:03 Lymph # 2.9 K/mm3 (1.2-5.4) 11/21/18 07:03 [place] # 0.9 K/mm3 (0.0-0.8) H 11/21/18 07:03 Eos # 0.4 K/mm3 (0.0-0.4) 11/21/18 07:03 Baso # 0.1 K/mm3 (0.0-0.1) 11/21/18 07:03 Add Manual Diff Complete 11/18/18 04:38 Total Counted 100 11/18/18 04:38 Seg Neutrophils % 66.6 % (40.0-70.0) 11/21/18 07:03 Seg Neuts % (Manual) 64.0 % (40.0-70.0) 11/18/18 04:38 Band Neutrophils % 0 % 11/18/18 04:38 Lymphocytes % (Manual) 23.0 % (13.4-35.0) 11/18/18 04:38 Reactive Lymphs % (Man) 0 % 11/18/18 04:38 Monocytes % (Manual) 8.0 % (0.0-7.3) H 11/18/18 04:38 Eosinophils % (Manual) 3.0 % (0.0-4.3) 11/18/18 04:38 Basophils % (Manual) 2.0 % (0.0-1.8) H 11/18/18 04:38 Metamyelocytes % 0 % 11/18/18 04:38 Myelocytes % 0 % 11/18/18 04:38 Promyelocytes % 0 % 11/18/18 04:38 Blast Cells % 0 % 11/18/18 04:38 Nucleated RBC % Not Reportable 11/18/18 04:38 Seg Neutrophils # 8.5 K/mm3 (1.8-7.7) H 11/21/18 07:03 Seg Neutrophils # Man 10.2 K/mm3 (1.8-7.7) H 11/18/18 04:38 Band Neutrophils # 0.0 K/mm3 11/18/18 04:38 Lymphocytes # (Manual) 3.7 K/mm3 (1.2-5.4) 11/18/18 04:38 Abs React Lymphs (Man) 0.0 K/mm3 11/18/18 04:38 Monocytes # (Manual) 1.3 K/mm3 (0.0-0.8) H 11/18/18 04:38 Eosinophils # (Manual) 0.5 K/mm3 (0.0-0.4) H 11/18/18 04:38 Basophils # (Manual) 0.3 K/mm3 (0.0-0.1) H 11/18/18 04:38 Metamyelocytes # 0.0 K/mm3 11/18/18 04:38 Myelocytes # 0.0 K/mm3 11/18/18 04:38 Promyelocytes # 0.0 K/mm3 11/18/18 04:38 Blast Cells # 0.0 K/mm3 11/18/18 04:38 WBC Morphology Not Reportable 11/18/18 04:38 Hypersegmented Neuts Not Reportable 11/18/18 04:38 Hyposegmented Neuts Not Reportable 11/18/18 04:38 Hypogranular Neuts Not Reportable 11/18/18 04:38 Smudge Cells Not Reportable 11/18/18 04:38 Toxic Granulation Not Reportable 11/18/18 04:38 Toxic Vacuolation Not Reportable 11/18/18 04:38 Dohle Bodies Not Reportable 11/18/18 04:38 Pelger-Huet Anomaly Not Reportable 11/18/18 04:38 Manuel Rods Not Reportable 11/18/18 04:38 Platelet Estimate Not Reportable 11/18/18 04:38 Clumped Platelets Not Reportable 11/18/18 04:38 Plt Clumps, EDTA Not Reportable 11/18/18 04:38 Large Platelets Not Reportable 11/18/18 04:38 Giant Platelets Not Reportable 11/18/18 04:38 Platelet Satelliting Not Reportable 11/18/18 04:38 Plt Morphology Comment Not Reportable 11/18/18 04:38 RBC Morphology Normal 11/18/18 04:38 Dimorphic RBCs Not Reportable 11/18/18 04:38 Polychromasia Not Reportable 11/18/18 04:38 Hypochromasia Not Reportable 11/18/18 04:38 Poikilocytosis Not Reportable 11/18/18 04:38 Anisocytosis Not Reportable 11/18/18 04:38 Microcytosis Not Reportable 11/18/18 04:38 Macrocytosis Not Reportable 11/18/18 04:38 Spherocytes Not Reportable 11/18/18 04:38 Pappenheimer Bodies Not Reportable 11/18/18 04:38 Sickle Cells Not Reportable 11/18/18 04:38 Target Cells Not Reportable 11/18/18 04:38 Tear Drop Cells Not Reportable 11/18/18 04:38 Ovalocytes Not Reportable 11/18/18 04:38 Helmet Cells Not Reportable 11/18/18 04:38 [place] Bodies Not Reportable 11/18/18 04:38 Max Rings Not Reportable 11/18/18 04:38 [place] Cells Not Reportable 11/18/18 04:38 Bite Cells Not Reportable 11/18/18 04:38 Crenated Cell Not Reportable 11/18/18 04:38 Elliptocytes Not Reportable 11/18/18 04:38 Acanthocytes (Spur) Not Reportable 11/18/18 04:38 Rouleaux Not Reportable 11/18/18 04:38 Hemoglobin C Crystals Not Reportable 11/18/18 04:38 Schistocytes Not Reportable 11/18/18 04:38 Malaria parasites Not Reportable 11/18/18 04:38 Hood Bodies Not Reportable 11/18/18 04:38 Hem Pathologist Commnt No 11/18/18 04:38 PT 13.5 Sec. (12.2-14.9) 11/18/18 08:36 INR 0.97 (0.87-1.13) 11/18/18 08:36 APTT 27.0 Sec. (24.2-36.6) 11/18/18 08:36 Sodium 138 mmol/L (137-145) 11/13/18 07:55 Potassium 3.8 mmol/L (3.6-5.0) 11/13/18 07:55 Chloride 100.6 mmol/L (98-107) 11/13/18 07:55 Carbon Dioxide 20 mmol/L (22-30) L 11/13/18 07:55 Anion Gap 21 mmol/L 11/13/18 07:55 BUN 7 mg/dL (9-20) L 11/13/18 07:55 Creatinine 0.6 mg/dL (0.8-1.5) L 11/13/18 07:55 Estimated GFR > 60 ml/min 11/13/18 07:55 BUN/Creatinine Ratio 12 % 11/13/18 07:55 Glucose 63 mg/dL (75-100) L 11/13/18 07:55 POC Glucose 54 (70-105) L 11/17/18 17:15 Lactic Acid 0.70 mmol/L (0.7-2.0) 11/10/18 19:50 Calcium 8.8 mg/dL (8.4-10.2) 11/13/18 07:55 Total Bilirubin 0.90 mg/dL (0.1-1.2) 11/10/18 15:04 Direct Bilirubin 0.4 mg/dL (0-0.2) H 11/10/18 15:04 Indirect Bilirubin 0.5 mg/dL 11/10/18 15:04 AST 16 units/L (5-40) 11/10/18 15:04 ALT 14 units/L (7-56) 11/10/18 15:04 Alkaline Phosphatase 78 units/L (35-129) 11/10/18 15:04 C-Reactive Protein 22.20 mg/dL (0.00-1.30) H 11/11/18 07:30 Total Protein 7.5 g/dL (6.3-8.2) 11/10/18 15:04 Albumin 3.5 g/dL (3.9-5) L 11/10/18 15:04 Albumin/Globulin Ratio 0.9 % 11/10/18 15:04 Lipase 47 units/L (13-60) 11/10/18 15:04 Urine Color Giselle (Yellow) 11/10/18 17:46 Urine Turbidity Clear (Clear) 11/10/18 17:46 Urine pH 6.0 (5.0-7.0) 11/10/18 17:46 Ur Specific [place] 1.043 (1.003-1.030) H 11/10/18 17:46 Urine Protein 100 mg/dl mg/dL (Negative) 11/10/18 17:46 Urine Glucose (UA) Neg mg/dL (Negative) 11/10/18 17:46 Urine Ketones 20 mg/dL (Negative) 11/10/18 17:46 Urine Blood Sm (Negative) 11/10/18 17:46 Urine Nitrite Neg (Negative) 11/10/18 17:46 Urine Bilirubin Sm (Negative) 11/10/18 17:46 Urine Ictotest Positive (Negative) 11/10/18 17:46 Urine Urobilinogen 4.0 mg/dL (<2.0) 11/10/18 17:46 Ur Leukocyte Esterase Neg (Negative) 11/10/18 17:46 Urine WBC (Auto) 8.0 /HPF (0.0-6.0) H 11/10/18 17:46 Urine RBC (Auto) 12.0 /HPF (0.0-6.0) 11/10/18 17:46 U Epithel Cells (Auto) 3.0 /HPF (0-13.0) 11/10/18 17:46 Urine Bacteria (Auto) 1+ /HPF (Negative) 11/10/18 17:46 Urine Mucus 3+ /HPF 11/10/18 17:46 Urine Yeast (Budding) 2+ /HPF 11/10/18 17:46 Urine Opiates Screen Presumptive positive 11/11/18 Unknown Urine Methadone Screen Presumptive negative 11/11/18 Unknown Ur Barbiturates Screen Presumptive negative 11/11/18 Unknown Ur Phencyclidine Scrn Presumptive negative 11/11/18 Unknown Ur Amphetamines Screen Presumptive negative 11/11/18 Unknown U Benzodiazepines Scrn Presumptive negative 11/11/18 Unknown Urine Cocaine Screen Presumptive negative 11/11/18 Unknown U Marijuana (THC) Screen Presumptive negative 11/11/18 Unknown Drugs of Abuse Note Disclamer 11/11/18 Unknown Active Medications - Current Medications Current Medications: Generic Name Dose Route Start Last Admin Trade Name Freq PRN Reason Stop Dose Admin Acetaminophen 650 mg 11/10/18 22:43 Tylenol PO Q4H PRN Pain MILD(1-3)/Fever >100.5/CORTES Enoxaparin Sodium 40 mg 11/11/18 10:00 11/21/18 09:05 Lovenox SUB-Q 40 mg QDAY FLACA Administration Dextrose/Sodium Chloride 1,000 mls @ 100 mls/hr 11/13/18 17:00 11/21/18 00:32 D5/0.45ns IV 100 mls/hr DIRECT FLACA Administration Piperacillin Sod/Tazobactam Sod 4.5 gm in 100 mls @ 200 mls/hr 11/15/18 18:00 11/21/18 17:18 Zosyn/Ns 4.5gm/100ml IV 200 mls/hr Q8H FLACA Administration Protocol Lorazepam 1 mg 11/12/18 10:00 11/20/18 20:55 Ativan IV 1 mg QHS PRN Administration Insomnia Morphine Sulfate 2 mg 11/10/18 22:43 11/21/18 09:08 Morphine IV 2 mg Q4H PRN Administration Pain, Moderate (4-6) Nicotine 21 mg 11/11/18 10:00 11/21/18 09:06 Habitrol TD 21 mg QDAY FLACA Administration Ondansetron HCl 4 mg 11/10/18 22:43 11/18/18 21:37 Zofran IV 4 mg Q4H PRN Administration Nausea And Vomiting Sodium Chloride 10 ml 11/11/18 10:00 11/21/18 09:10 Sodium Chloride Flush Syringe 10 Ml IV 10 ml BID FLACA Administration Sodium Chloride 10 ml 11/10/18 22:43 11/19/18 21:27 Sodium Chloride Flush Syringe 10 Ml IV 10 ml PRN PRN Administration LINE FLUSH Nutrition/Malnutrition Assess - Dietary Evaluation Nutrition/Malnutrition Findings: Nutrition Notes Start: 11/11/18 13:58 Freq: Status: Active Protocol: Document 11/20/18 10:07 EB (Rec: 11/20/18 10:12 [id number]) Co-Sign 11/20/18 10:07 LP Nutrition Notes Initial or Follow up Reassessment Current Diagnosis Sepsis Other Pertinent Diagnosis Diverticular abscess with microperforation Current Diet Regular diet with high fiber Labs/Tests Reviewed Pertinent Medications Reviewed Height 5 ft 11 in Weight 95 kg [place] Body Weight (kg) 78.18 BMI 29.2 Subjective/Other Information Pt awake and just finished breakfast at time of visit. Pt reports no pain when eating, no N/V, and states he is still very hungry after [place] diet meal. Pt consumes 100% of [place] diet consistently. Pt diet advanced to regular diet with high fiber today. Percent of energy/protein needs met: 46%/32% Burn Absent Trauma Absent GI Symptoms None Current % PO Good (75-100%) #1 Nutrition Diagnosis Inadequate oral intake As Evidenced by Signs and Symptoms pt drinking 100% of full liquid diet Diagnosis Progress(for reassessment Improved documentation) Is patient on ventilator? No Is Patient Ambulatory and/or Out of Bed Yes REE-([facility]-ambulatory/OOB) [ 2485.769 NUTR.MSJOOB] Calculation Used for Recommendations [facility] Additional Notes Protein Needs: 117-156g (1.5- 2g/kg IBW) Fluid Needs: 1 ml/kcal Nutrition Intervention Change Diet Order: Advance diet when medically able Goal #1 Advance diet to meet nutrient needs Anticipated Discharge Needs: Unable to identify at this time Follow-Up By: 11/26/18 Additional Comments F/u: New diet tolerance <VIRGINIA HORTA M - Last Filed: 11/23/18 19:15> Assessment and Plan Assessment and plan: I saw and evaluated the patient. I agree with the findings and the plan of care as documented in the Nurse Practitioner's~note, with the following corrections and additions. -ct a/p ordered, IR to fup and dc drain if appropriate Hospitalist Physical - Constitutional Vitals: Temp Pulse Resp BP Pulse Ox 97.6 F 85 18 168/68 96 11/22/18 12:00 11/22/18 12:00 11/22/18 12:00 11/22/18 12:00 11/22/18 12:00 Results - Labs CBC & Chem 7: 11/21/18 07:03 11/13/18 07:55 Labs: Laboratory Last Values WBC 12.7 K/mm3 (4.5-11.0) H 11/21/18 07:03 RBC 4.72 M/mm3 (3.65-5.03) 11/21/18 07:03 Hgb 13.7 gm/dl (11.8-15.2) 11/21/18 07:03 Hct 41.1 % (35.5-45.6) 11/21/18 07:03 MCV 87 fl (84-94) 11/21/18 07:03 MCH 29 pg (28-32) 11/21/18 07:03 MCHC 33 % (32-34) 11/21/18 07:03 RDW 14.2 % (13.2-15.2) 11/21/18 07:03 Plt Count 390 K/mm3 (140-440) 11/21/18 07:03 Lymph % (Auto) 22.8 % (13.4-35.0) 11/21/18 07:03 [place] % (Auto) 6.7 % (0.0-7.3) 11/21/18 07:03 Eos % (Auto) 2.8 % (0.0-4.3) 11/21/18 07:03 Baso % (Auto) 1.1 % (0.0-1.8) 11/21/18 07:03 Lymph # 2.9 K/mm3 (1.2-5.4) 11/21/18 07:03 [place] # 0.9 K/mm3 (0.0-0.8) H 11/21/18 07:03 Eos # 0.4 K/mm3 (0.0-0.4) 11/21/18 07:03 Baso # 0.1 K/mm3 (0.0-0.1) 11/21/18 07:03 Add Manual Diff Complete 11/18/18 04:38 Total Counted 100 11/18/18 04:38 Seg Neutrophils % 66.6 % (40.0-70.0) 11/21/18 07:03 Seg Neuts % (Manual) 64.0 % (40.0-70.0) 11/18/18 04:38 Band Neutrophils % 0 % 11/18/18 04:38 Lymphocytes % (Manual) 23.0 % (13.4-35.0) 11/18/18 04:38 Reactive Lymphs % (Man) 0 % 11/18/18 04:38 Monocytes % (Manual) 8.0 % (0.0-7.3) H 11/18/18 04:38 Eosinophils % (Manual) 3.0 % (0.0-4.3) 11/18/18 04:38 Basophils % (Manual) 2.0 % (0.0-1.8) H 11/18/18 04:38 Metamyelocytes % 0 % 11/18/18 04:38 Myelocytes % 0 % 11/18/18 04:38 Promyelocytes % 0 % 11/18/18 04:38 Blast Cells % 0 % 11/18/18 04:38 Nucleated RBC % Not Reportable 11/18/18 04:38 Seg Neutrophils # 8.5 K/mm3 (1.8-7.7) H 11/21/18 07:03 Seg Neutrophils # Man 10.2 K/mm3 (1.8-7.7) H 11/18/18 04:38 Band Neutrophils # 0.0 K/mm3 11/18/18 04:38 Lymphocytes # (Manual) 3.7 K/mm3 (1.2-5.4) 11/18/18 04:38 Abs React Lymphs (Man) 0.0 K/mm3 11/18/18 04:38 Monocytes # (Manual) 1.3 K/mm3 (0.0-0.8) H 11/18/18 04:38 Eosinophils # (Manual) 0.5 K/mm3 (0.0-0.4) H 11/18/18 04:38 Basophils # (Manual) 0.3 K/mm3 (0.0-0.1) H 11/18/18 04:38 Metamyelocytes # 0.0 K/mm3 11/18/18 04:38 Myelocytes # 0.0 K/mm3 11/18/18 04:38 Promyelocytes # 0.0 K/mm3 11/18/18 04:38 Blast Cells # 0.0 K/mm3 11/18/18 04:38 WBC Morphology Not Reportable 11/18/18 04:38 Hypersegmented Neuts Not Reportable 11/18/18 04:38 Hyposegmented Neuts Not Reportable 11/18/18 04:38 Hypogranular Neuts Not Reportable 11/18/18 04:38 Smudge Cells Not Reportable 11/18/18 04:38 Toxic Granulation Not Reportable 11/18/18 04:38 Toxic Vacuolation Not Reportable 11/18/18 04:38 Dohle Bodies Not Reportable 11/18/18 04:38 Pelger-Huet Anomaly Not Reportable 11/18/18 04:38 Manuel Rods Not Reportable 11/18/18 04:38 Platelet Estimate Not Reportable 11/18/18 04:38 Clumped Platelets Not Reportable 11/18/18 04:38 Plt Clumps, EDTA Not Reportable 11/18/18 04:38 Large Platelets Not Reportable 11/18/18 04:38 Giant Platelets Not Reportable 11/18/18 04:38 Platelet Satelliting Not Reportable 11/18/18 04:38 Plt Morphology Comment Not Reportable 11/18/18 04:38 RBC Morphology Normal 11/18/18 04:38 Dimorphic RBCs Not Reportable 11/18/18 04:38 Polychromasia Not Reportable 11/18/18 04:38 Hypochromasia Not Reportable 11/18/18 04:38 Poikilocytosis Not Reportable 11/18/18 04:38 Anisocytosis Not Reportable 11/18/18 04:38 Microcytosis Not Reportable 11/18/18 04:38 Macrocytosis Not Reportable 11/18/18 04:38 Spherocytes Not Reportable 11/18/18 04:38 Pappenheimer Bodies Not Reportable 11/18/18 04:38 Sickle Cells Not Reportable 11/18/18 04:38 Target Cells Not Reportable 11/18/18 04:38 Tear Drop Cells Not Reportable 11/18/18 04:38 Ovalocytes Not Reportable 11/18/18 04:38 Helmet Cells Not Reportable 11/18/18 04:38 [place] Bodies Not Reportable 11/18/18 04:38 Max Rings Not Reportable 11/18/18 04:38 Stella Cells Not Reportable 11/18/18 04:38 Bite Cells Not Reportable 11/18/18 04:38 Crenated Cell Not Reportable 11/18/18 04:38 Elliptocytes Not Reportable 11/18/18 04:38 Acanthocytes (Spur) Not Reportable 11/18/18 04:38 Rouleaux Not Reportable 11/18/18 04:38 Hemoglobin C Crystals Not Reportable 11/18/18 04:38 Schistocytes Not Reportable 11/18/18 04:38 Malaria parasites Not Reportable 11/18/18 04:38 Hood Bodies Not Reportable 11/18/18 04:38 Hem Pathologist Commnt No 11/18/18 04:38 PT 13.5 Sec. (12.2-14.9) 11/18/18 08:36 INR 0.97 (0.87-1.13) 11/18/18 08:36 APTT 27.0 Sec. (24.2-36.6) 11/18/18 08:36 Sodium 138 mmol/L (137-145) 11/13/18 07:55 Potassium 3.8 mmol/L (3.6-5.0) 11/13/18 07:55 Chloride 100.6 mmol/L (98-107) 11/13/18 07:55 Carbon Dioxide 20 mmol/L (22-30) L 11/13/18 07:55 Anion Gap 21 mmol/L 11/13/18 07:55 BUN 7 mg/dL (9-20) L 11/13/18 07:55 Creatinine 0.6 mg/dL (0.8-1.5) L 11/13/18 07:55 Estimated GFR > 60 ml/min 11/13/18 07:55 BUN/Creatinine Ratio 12 % 11/13/18 07:55 Glucose 63 mg/dL (75-100) L 11/13/18 07:55 POC Glucose 54 (70-105) L 11/17/18 17:15 Lactic Acid 0.70 mmol/L (0.7-2.0) 11/10/18 19:50 Calcium 8.8 mg/dL (8.4-10.2) 11/13/18 07:55 Total Bilirubin 0.90 mg/dL (0.1-1.2) 11/10/18 15:04 Direct Bilirubin 0.4 mg/dL (0-0.2) H 11/10/18 15:04 Indirect Bilirubin 0.5 mg/dL 11/10/18 15:04 AST 16 units/L (5-40) 11/10/18 15:04 ALT 14 units/L (7-56) 11/10/18 15:04 Alkaline Phosphatase 78 units/L (35-129) 11/10/18 15:04 C-Reactive Protein 22.20 mg/dL (0.00-1.30) H 11/11/18 07:30 Total Protein 7.5 g/dL (6.3-8.2) 11/10/18 15:04 Albumin 3.5 g/dL (3.9-5) L 11/10/18 15:04 Albumin/Globulin Ratio 0.9 % 11/10/18 15:04 Lipase 47 units/L (13-60) 11/10/18 15:04 Urine Color Giselle (Yellow) 11/10/18 17:46 Urine Turbidity Clear (Clear) 11/10/18 17:46 Urine pH 6.0 (5.0-7.0) 11/10/18 17:46 Ur Specific [place] 1.043 (1.003-1.030) H 11/10/18 17:46 Urine Protein 100 mg/dl mg/dL (Negative) 11/10/18 17:46 Urine Glucose (UA) Neg mg/dL (Negative) 11/10/18 17:46 Urine Ketones 20 mg/dL (Negative) 11/10/18 17:46 Urine Blood Sm (Negative) 11/10/18 17:46 Urine Nitrite Neg (Negative) 11/10/18 17:46 Urine Bilirubin Sm (Negative) 11/10/18 17:46 Urine Ictotest Positive (Negative) 11/10/18 17:46 Urine Urobilinogen 4.0 mg/dL (<2.0) 11/10/18 17:46 Ur Leukocyte Esterase Neg (Negative) 11/10/18 17:46 Urine WBC (Auto) 8.0 /HPF (0.0-6.0) H 11/10/18 17:46 Urine RBC (Auto) 12.0 /HPF (0.0-6.0) 11/10/18 17:46 U Epithel Cells (Auto) 3.0 /HPF (0-13.0) 11/10/18 17:46 Urine Bacteria (Auto) 1+ /HPF (Negative) 11/10/18 17:46 Urine Mucus 3+ /HPF 11/10/18 17:46 Urine Yeast (Budding) 2+ /HPF 11/10/18 17:46 Urine Opiates Screen Presumptive positive 11/11/18 Unknown Urine Methadone Screen Presumptive negative 11/11/18 Unknown Ur Barbiturates Screen Presumptive negative 11/11/18 Unknown Ur Phencyclidine Scrn Presumptive negative 11/11/18 Unknown Ur Amphetamines Screen Presumptive negative 11/11/18 Unknown U Benzodiazepines Scrn Presumptive negative 11/11/18 Unknown Urine Cocaine Screen Presumptive negative 11/11/18 Unknown U Marijuana (THC) Screen Presumptive negative 11/11/18 Unknown Drugs of Abuse Note Disclamer 11/11/18 Unknown Nutrition/Malnutrition Assess - Dietary Evaluation Nutrition/Malnutrition Findings: Nutrition Notes Start: 11/11/18 13:58 Freq: Status: Discharge Protocol: Document 11/20/18 10:07 EB (Rec: 11/20/18 10:12 EB [id number]) Co-Sign 05/01/19 10:07 LP Nutrition Notes Initial or Follow up Reassessment Current Diagnosis Sepsis Other Pertinent Diagnosis Diverticular abscess with microperforation Current Diet Regular diet with high fiber Labs/Tests Reviewed Pertinent Medications Reviewed Height 5 ft 11 in Weight 95 kg [place] Body Weight (kg) 78.18 BMI 29.2 Subjective/Other Information Pt awake and just finished breakfast at time of visit. Pt reports no pain when eating, no N/V, and states he is still very hungry after [place] diet meal. Pt consumes 100% of [place] diet consistently. Pt diet advanced to regular diet with high fiber today. Percent of energy/protein needs met: 46%/32% Burn Absent Trauma Absent GI Symptoms None Current % PO Good (75-100%) #1 Nutrition Diagnosis Inadequate oral intake As Evidenced by Signs and Symptoms pt drinking 100% of full liquid diet Diagnosis Progress(for reassessment Improved documentation) Is patient on ventilator? No Is Patient Ambulatory and/or Out of Bed Yes REE-([place]-ambulatory/OOB) [ 2485.769 NUTR.MSJOOB] Calculation Used for Recommendations [place] [facility] Additional Notes Protein Needs: 117-156g (1.5- 2g/kg IBW) Fluid Needs: 1 ml/kcal Nutrition Intervention Change Diet Order: Advance diet when medically able Goal #1 Advance diet to meet nutrient needs Anticipated Discharge Needs: Unable to identify at this time Follow-Up By: 11/26/18 Additional Comments F/u: New diet tolerance
[2018-11-21] MEDS: ATIVAN IV PRN (21:10)
--- NOTE | 2018-11-21 21:17 | Cat Scan Report ---
PROCEDURE: CT ABDOMEN PELVIS W CON TECHNIQUE: Computerized axial tomography of the abdomen and pelvis was performed after the IV inject ion of iodinated nonionic contrast. CT DOSE LENGTH PRODUCT: 2960.4 mGycm HISTORY: intra-abdominal abscess COMPARISONS: 11/15/2018 . FINDINGS: Visualized lower thorax: No significant abnormality. Liver: Normal size and attenuation. Spleen: Normal size and attenuation. Gallbladder and biliary system: Normal. Pancreas: Normal. Adrenals: Normal. Kidneys: 2.2 cm exophytic right renal cyst. No hydronephrosis GI tract: Appendix is visualized and does not appear inflamed. No bowel obstruction or inflammation . Mild sigmoid diverticulosis Lymph nodes and mesentery: Normal. Vasculature: Normal.. Bladder: Normal. Reproductive organs: Normal. Peritoneum: There is a drainage catheter present. Previously seen abscess has resolved with minimal s tranding seen in the mesentery. Musculoskeletal structures: No significant abnormality. Other: Small anterior abdominal wall fat-containing hernia . IMPRESSION: Previously seen abscess has resolved . This document is electronically signed by Yasmin Zamudio MD., Nov 21 2018 09:14:54 PM ET
[2018-11-22] MEDS: ZOSYN/NS 4.5GM/100ML 4.5 GM/100 ML VIAL IV SCH (02:12)
[2018-11-22] MEDS: D5/0.45NS 1,000 ML IV SCH (03:55)
[2018-11-22] MEDS: MORPHINE IV PRN ×2 (03:55→07:37)
--- NOTE | 2018-11-22 09:16 | Discharge Summary ---
<OPALBLANCA N. - Last Filed: 11/22/18 15:27> Providers - Providers Date of Admission: 11/10/18 21:50 Date of discharge: 11/22/18 Attending physician: VIRGINIA HORTA MD 11/10/18 20:48 Consult to Physician [CONS] Stat Comment: Consulting Provider: TRA HINOJOSA Physician Instructions: Reason For Exam: intra-abdominal abscess complicated sigmoid divert 11/11/18 07:33 Consult to Physician [CONS] Routine Comment: Consulting Provider: YU WALTERS Physician Instructions: Reason For Exam: ruptured diverticulitis 11/13/18 11:10 Consult to Physician [CONS] Routine Comment: CONSULT COMPLETED - RIGOBERTO Consulting Provider: LILLI MORTENSEN Physician Instructions: Reason For Exam: diverticulitis 11/15/18 21:19 Consult to Physician [CONS] Routine Comment: Consulting Provider: ARVIN RUST Physician Instructions: Reason For Exam: pelvic abscess - CT drainage [facility] Reason for admission: Diverticular Abscess with Microperforation Condition: Good Hospital course: 33-year-old male with history of diverticulitis presented to the ED on 11/10 with complaints of abdominal pain that started 5 days ago. Pain is in the lower quadrant which he describes as a sharp pain, intermittent in 4 hours, intensity 8/10, no radiation, better with pain medications given. He did place a subjective fever chills, no nausea vomiting. The patient was seen at [facility] on 11/10 and was admitted, but left AMA because he stated he "flipped out". CT abdomen showed 4.7x4.5 cm Contained Abscess, within the mesenteric fat, Perforated, Sigmoid Diverticlum, moderately large umbilical hernia. He was admitted to the surgical floor. He was kept NPO to allow for bowel rest. Repeat CT showed interval increase in the size of the fluid collection of the upper pelvis/lower abdomen region most likely representing a sigmoid diverticular abscess. On 11/[address] guided abscess drain; 70 ml of purulent fluid with old blood was removed. He was treated with IV abx and transitioned to po abx at discharge. He was able to tolerate clears and his diet has continued o advance to high fiber solid diet. CT Abd/Pelvis done on 11/21 shows previously seen abscess has resolved. Drain removed by IR and pt advised to follow up with Dr. Hinojosa within one week. Diagnosis Diverticular Abscess with Microperforation Sepsis due to diverticulitis Peritoneal irritation Hypoglycemia Disposition: DC-01 TO HOME OR SELFCARE Time spent for discharge: 35 minutes Core Measure Documentation - Palliative Care Palliative Care/ Comfort Measures: Not Applicable - Core Measures Any of the following diagnoses?: none - VTE Discharge Requirements Deep Vein Thrombosis/Pulmonary Embolism Present on Admission: No Contraindication No Overlap Therapy order at DC: Not Indicated Exam - Physical Exam Narrative exam: General appearance: Present: no acute distress - EENT Eyes: Present: PERRL, EOM intact ENT: hearing intact, clear oral mucosa, dentition normal - Neck Neck: Present: supple, normal ROM - Respiratory Respiratory effort: normal Respiratory: bilateral: CTA - Cardiovascular Heart rate: 72 Rhythm: regular (beats per minute) Heart Sounds: Present: S1 & S2 - Extremities Extremities: pulses intact, pulses symmetrical, No edema - Abdominal General gastrointestinal: soft, tender, hypoactive bowel sounds - Integumentary Integumentary: Present: warm, dry - Psychiatric Psychiatric: memory intact, cooperative - Neurologic Neurologic: CNII-XII intact, moves all extremities - Constitutional Vitals: Temp Pulse Resp BP Pulse Ox 98.5 F 65 18 92/56 98 11/22/18 08:11 11/22/18 08:11 11/22/18 08:11 11/22/18 08:11 11/22/18 08:11 Plan Activity: no restrictions Weight Bearing Status: Full Weight Bearing Diet: other (high fiber solid diet) Follow up with: TRA HINOJOSA MD [Staff Physician] - [facility] - 3-5 Days Prescriptions: Amoxicillin/K Clav Tab [Augmentin 875 mg] 1 tab PO Q12HR 3 Days #7 tab Nicotine [Habitrol] 21 mg TD QDAY 30 Days #30 patch oxyCODONE /ACETAMINOPHEN [Percocet 5/325] 1 tab PO Q6HR PRN #14 tablet PRN Reason: Pain <VIRGINIA HORTA - Last Filed: 11/24/18 23:25> Providers - Providers Date of Admission: 11/10/18 21:50 Attending physician: VIRGINIA HORTA MD 11/10/18 20:48 Consult to Physician [CONS] Stat Comment: Consulting Provider: TRA HINOJOSA Physician Instructions: Reason For Exam: intra-abdominal abscess complicated sigmoid divert 11/11/18 07:33 Consult to Physician [CONS] Routine Comment: Consulting Provider: YU WALTERS Physician Instructions: Reason For Exam: ruptured diverticulitis 11/13/18 11:10 Consult to Physician [CONS] Routine Comment: CONSULT COMPLETED - RIGOBERTO Consulting Provider: LILLI MORTENSEN Physician Instructions: Reason For Exam: diverticulitis 11/15/18 21:19 Consult to Physician [CONS] Routine Comment: Consulting Provider: ARVIN RUST Physician Instructions: Reason For Exam: pelvic abscess - CT drainage [facility] Hospital course: I saw and evaluated the patient. I agree with the findings and the plan of care as documented in the Nurse Practitioner's~note, with the following corrections and additions. will complete abx PO upon dc, patient was counseled Exam - Constitutional Vitals: Temp Pulse Resp BP Pulse Ox 97.6 F 85 18 168/68 96 11/22/18 12:00 11/22/18 12:00 11/22/18 12:00 11/22/18 12:00 11/22/18 12:00
[2018-11-22] MEDS: HABITROL TD SCH (10:15)
[2018-11-22] MEDS: SODIUM CHLORIDE FLUSH SYRINGE 10 ML IV SCH (10:23)
[2018-11-22] MEDS: LOVENOX SUB-Q SCH (10:23)
[2018-11-22 12:56] VITALS: BP 168/68
--- NOTE | 2018-11-22 15:18 | Event Note ---
Date: 11/22/18 Patient's drain removed at bedside without complications. Okay to discharge from an IR standpoint
--- NOTE | 2018-12-12 16:32 | Cat Scan Report ---
EXAM: CT guided abdominal diverticular abscess 8 Fr drain placement CLINICAL INDICATION: Large midline diverticular abscess DATE: 11/18/18 UPSET WELDING MACHINE OPERATOR: ARVIN RUST MD MEDICATIONS: Conscious sedation using Versed and fentanyl was performed under guidance of radiologic nursing. Continuous cardiopulmonary monitoring was utilized. PROCEDURE: Following an explanation of the risks, benefits and alternatives; written informed consent was obtained. The patient was brought to the CT suite and placed in the supine position on the CT table. Retail Shift Manager CT was performed of the abdomen. After determining the appropriate site, the skin was infiltrated with lidocaine and a finder needle was placed. Intermittent CT was performed until the desired position was identified. The 18 gauge trocar needle was inserted into the diverticular abscess . Aspiration was performed and sent to the lab for analysis. J wire was then advanced through the needle and into the collection. The needle was exchanged for multiple dilators that were used to serially dilate over the wire. A 8 Fr APD drain was advanced over the wire and metal stiffener. The metal stiffener and wire were removed. Final CT scanning was performed. The pigtail was secured and aspirated until no more material could be aspirated. Sterile bandage was applied. The patient tolerated the procedure well. There were no immediate postprocedural complications. FINDINGS: 1. Initial CT demonstrates a diverticular midline abscess. There is a satisfactory window for CT drainage. 2. Intermittent CT demonstrates the 18 gauge needle was placed in the diverticular abscess. 3. Wire is coiled in the diverticular fluid collection. 4. Final CT documents placement of a 8 Fr drain in the diverticular fluid collection. IMPRESSION: Successful CT guided 8 drain placement in a fluid collection/abscess.
== END 2018-11-22 14:45 | disposition home or self-care (01) | DRG 871 ==
LOC: ED 14:50 → 3A 21:50 → 3B-SURG 23:26
PROVIDERS: ADMIT Internal Medicine; ATTEND Internal Medicine
PROC: 0D9N30Z Drainage of Sigmoid Colon with Drainage Device, Percutaneous Approach (ICD-10-PCS; principal; 2018-11-18)
DX: A41.9 Sepsis, unspecified organism (principal); K65.9 Peritonitis, unspecified; K57.20 Diverticulitis of large intestine with perforation and abscess without bleeding; F17.210 Nicotine dependence, cigarettes, uncomplicated; E16.2 Hypoglycemia, unspecified; Z82.49 Family history of ischemic heart disease and other diseases of the circulatory system; Z88.5 Allergy status to narcotic agent; Z79.899 Other long term (current) drug therapy
CPT/HCPCS: 10160; 36415; 74177; 77012; 80048; 80076; 80307; 81001; 82140; 82962; 83690; 85007; 85025; 85027; 85610; 85730; 86140; 87040; 87116; 94760; 99285; G0378; C1769; J0696; J1450; J1650; J1885; J2060; J2250; J2270; J2405; J2543; J3010; J7030; J7040; Q9967